=== PATIENT | male | born 1970 | race Caucasian/White ===

== ENCOUNTER 2023-05-05 14:43 | Inpatient (IN) | payer MEDICAID, SELFPAY ==
[2023-05-05] VITALS (7 sets, daily range): BP systolic 129–156; BP diastolic 73–108; PULSE 94–130; RESP 18–24; TEMP 36.6; O2SAT 95–100; BMI 25.1; BMI 32.6
--- NOTE | ~2023-05-05 | CT_ITS ---
EXAMINATION: CT head/brain wo IV con, CT cervical spine wo IV con INDICATION INFORMATION: Reason for Exam AMS COMPARISON: Altered mental status TECHNIQUE: Separate noncontrast CT examinations of the head and cervical spine were performed. Coronal and sagittal images were created for each examination at the technologist workstation. This CT examination was performed using dose optimization techniques as appropriate, variously including the following: *Automated exposure control *Adjustment of mA and/or kV according to patient size (this includes techniques or standardized protocols for targeted exams where dose is matched to indication/reason for exam; i.e. extremities or head) *Use of iterative reconstruction technique DLP: 736 mGy-cm (cervical spine), 783 mGy-cm (head) FINDINGS: Head: Mild left occipital scalp soft tissue swelling without subjacent calvarial fracture. The mastoid air cells and visualized portions of the paranasal sinuses are well aerated. There is no evidence of acute intracranial hemorrhage or territorial infarction. No abnormal mass effect or midline shift is seen. Mild asymmetric hypoattenuation of the left occipital cortex (series 19, image 93; series 14, image 16). Buenrostro to white matter differentiation is otherwise well preserved. No extra-axial fluid collections are identified. No hydrocephalus. No significant volume loss. Patchy periventricular and deep white matter hypoattenuation is consistent with mild small vessel ischemic changes. Cervical spine: There is no evidence of acute cervical spine fracture. Vertebral bodies remain normal in height. Alignment is maintained. Disc space heights are maintained. No pre- or paravertebral soft tissue abnormality is identified. Visualized portions of the lung apices are unremarkable. The thyroid gland is unremarkable. CT/CT cervical spine wo IV con IMPRESSION: 1. Mild asymmetric hypoattenuation of the left occipital cortex, which may be technical/artifactual or may represent an acute infarct. Correlate with focal neurologic signs/symptomatology and if clinically warranted, dedicated MRI brain may be obtained for further assessment. 2. Mild left occipital scalp soft tissue swelling, age-indeterminate. Otherwise, no acute traumatic abnormality of the brain or cervical spine.
--- NOTE | ~2023-05-05 | CT_ITS ---
EXAMINATION: CT CHEST, ABDOMEN AND PELVIS WITHOUT CONTRAST CLINICAL INFORMATION: Altered mental status. COMPARISON: None. TECHNIQUE: Multidetector volumetric imaging was performed from the base of the neck through the pubic symphysis. Sagittal and coronal reformatted images were obtained on the technologist workstation. This CT examination was performed using dose optimization techniques as appropriate, variously including the following: *Automated exposure control *Adjustment of mA and/or kV according to patient size (this includes techniques or standardized protocols for targeted exams where dose is matched to indication/reason for exam; i.e. extremities or head) *Use of iterative reconstruction technique DLP: 1208 mGy-cm. FINDINGS: Evaluation is limited as the patient was unable to follow breathing instructions. There is also beam hardening artifact seen extending through the abdomen and pelvis related to the patient's arms by his side. CT SCAN OF THE CHEST: LUNGS: Lungs bilaterally symmetrically hypoinflated. The CT acquisition appears to have been performed in expiration with diffuse areas of groundglass opacity and subpleural reticulation seen, most consistent with incomplete lung expansion and atelectasis. There is a tiny micronodule (less than 3 mm (in the anterolateral periphery of the right lung apex (series 29, image 129), appearing dense and possibly representing a tiny calcified granuloma. No suspicious focal lung nodule or mass. No effusion or pneumothorax. Central airways patent. LYMPHOVASCULAR STRUCTURES: Aortic and heart size normal. No pericardial effusion. No mediastinal, hilar or axillary adenopathy or free fluid collection. THYROID GLAND: Unremarkable to the extent included. CHEST: There is prominent density seen behind the nipples bilaterally, appearing symmetric and most consistent with prominent bilateral gynecomastia. BONES: T9 vertebral body hemangioma. Diffuse osteopenia. Mild kyphoscoliosis. No suspicious focal findings. CT SCAN OF THE ABDOMEN AND PELVIS: LIVER, GALLBLADDER, AND BILIARY TREE: The liver is normal in size, shape, and attenuation. No focal hepatic lesion on noncontrast imaging. No biliary ductal dilatation is present. The gallbladder is unremarkable with no evidence of radiopaque gallstones, gallbladder wall thickening, or obvious pericholecystic inflammatory changes. PANCREAS: Mild pancreatic parenchymal atrophy is seen. The pancreas is otherwise unremarkable on noncontrast imaging. SPLEEN, ADRENAL GLANDS: Unremarkable on noncontrast imaging. KIDNEYS AND URETERS: The kidneys are normal in size, shape, and attenuation. No hydronephrosis, hydroureter, or calculi seen. No perinephric stranding. There is a 1.9 cm thin-walled low-attenuation mass in the upper pole of the left kidney, consistent with a cyst, which warrants no additional imaging follow-up. BLADDER: Unremarkable. PELVIC VISCERA: Unremarkable. GASTROINTESTINAL TRACT: There is a small retrocardiac hiatal hernia. The small and large bowel are unremarkable. The appendix is unremarkable. ABDOMINAL WALL: There is likely a tiny fat-containing umbilical hernia. LYMPH NODES, VASCULAR: There are several small periportal lymph nodes seen, with the largest 1's measuring up to 1 cm in short axis. No significant retroperitoneal or pelvic adenopathy is seen. There are multiple enlarged bilateral inguinal lymph nodes, measuring up to 5 cm cm in the right inguinal region with a cortical thickness of 1.5 cm and 4.5 cm in the left groin with cortical thickness of up to 1 cm. OSSEOUS STRUCTURES: Mild facet arthropathy in the mid and lower lumbar spine.. CT/CT abdomen pelvis wo IV con IMPRESSION: Evaluation is limited as discussed above. CT scan of the chest: * Hypoinflated lungs with diffuse groundglass opacities and subpleural reticulation seen, most consistent with incomplete lung expansion and atelectasis. * No suspicious pulmonary nodule or mass. * Incidental finding of bilateral gynecomastia. CT scan of the abdomen and pelvis: * Bilateral enlarged inguinal lymph nodes with mildly thickened cortices but preservation of the normal fatty hilum, nonspecific. * Small periportal lymph nodes, nonspecific. * Upper pole left renal cyst, which warrants no additional imaging follow-up. * Small retrocardiac hiatal hernia. * Tiny fat-containing umbilical hernia.
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
--- NOTE | 2023-05-05 15:47 | ECG_ITS ---
Test Reason : FALL Blood Pressure : / mmHG Vent. Rate : 101 BPM Atrial Rate : 101 BPM P-R Int : 156 ms QRS Dur : 082 ms QT Int : 358 ms P-R-T Axes : 061 003 052 degrees QTc Int : 464 ms Sinus tachycardia Otherwise normal ECG No previous ECGs available Referred By: Generic ED Physician Electronically Signed By:Eliel Groves
[2023-05-05 16:13] LABS: Appearance Urine Clear; Color Urine Yellow; Glucose Urine UA Negative (Negative); Leukocyte Esterase Urine Negative (Negative); Nitrite Urine Negative (Negative); PH 6.5 (5.0-9.0); Specific Gravity - Urine 1.015 (1.005-1.025); Urine Blood Negative (Negative); Urine Ketones Negative (Negative); Urine Protein Negative (Neg-Trace)
[2023-05-05 16:17] LABS: Amphetamine Screen Urine Not Detected (Not Detect); Barbiturates, Urine Not Detected (Not Detect); Benzodiazepines Screen Urine Not Detected (Not Detect); Cannabinoid Screen Urine Not Detected (Not Detect); Cocaine Screen Urine Not Detected (Not Detect); Fentanyl, urine POSITIVE (Not Detect); Opiate Screen Urine Not Detected (Not Detect); Phencyclidine Screen Urine Not Detected (Not Detect)
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
[2023-05-05] MEDS: Haloperidol Lactate 5 MG/ML VIAL IM ×2 (17:10)
[2023-05-05] MEDS: Midazolam HCl/PF 2 MG/2 ML VIAL 4 MG IM (17:10)
[2023-05-05] MEDS: diphenhydrAMINE HCL 50 MG/ML VIAL IM (17:10)
[2023-05-05 17:20] LABS: Glucose, Whole Blood 126 mg/dL (60-115)
[2023-05-05 17:35] LABS: MANUAL DIFF FLAG NO
[2023-05-05 17:40] LABS: Basophils Percent Auto 0.2 % (0-2); Eosinophils Percent Auto 0.1 % (0-4); Hematocrit 36.1 % (42.0-52.0); Imm Gran Abs Auto 0.12 X10*3/uL (0.00-0.03); Lymphocytes Absolute Auto 1.5 X10*3/uL (1.2-4.9); Lymphocytes Percent Auto 12.6 % (20-40); Mean Corpuscular HGB Conc 33.2 g/dl (31.0-36.0); Mean Corpuscular Hemoglobin 28.2 pg (27.0-33.0); Mean Corpuscular Volume 84.9 fL (80.0-98.0); Mean Platelet Volume 8.8 fL (9.4-12.4); Monocytes Absolute Auto 0.5 X10*3/uL (0.1-1.2); Monocytes Percent Auto 3.7 % (2-11); Neutrophils Absolute Auto 10.1 x10*3/uL (2.0-8.3); Neutrophils Percent Auto 82.4 % (45-73); Platelet Count 288 X10*3/uL (160-400); Red Blood Count 4.25 X10*6/uL (4.60-5.80); Red Cell Distribution Width 13.9 % (11.0-16.0); White Blood Count 12.3 X10*3/uL (4.8-10.8)
[2023-05-05] MEDS: 0.9 % Sodium Chloride 1,000 ML 999 ML IV ×2 (17:45→19:08)
[2023-05-05 17:58] LABS: INTERNATIONAL NORM RATIO 1.1 (0.9-1.1); Prothrombin Time 13.3 SEC (11.1-13.3)
[2023-05-05 17:59] LABS: Alanine Aminotransferase 14 U/L (0-40); Albumin Level 4.2 g/dL (3.5-5.0); Alkaline Phosphatase 123 U/L (39-117); Aspartate Amino Transferase 25 U/L (5-37); Bilirubin Total 0.2 mg/dL (0.0-1.0); Blood Urea Nitrogen 11 mg/dL (9-16); Calcium 9.6 mg/dL (8.4-10.2); Creatinine Clr Calc Pharmacy 100.4; Estimated Glomerular Filt Rate > 60; Glucose Random 124 mg/dL (60-115); Total Protein 9.2 g/dL (6.5-8.0)
[2023-05-05 18:01] LABS: Acetaminophen LAB < 3 mcg/mL (<30); Salicylate < 5.0 mg/dL (15-30)
[2023-05-05 18:02] LABS: Anion Gap 28 (12-20); Carbon Dioxide 12 mmol/L (22-29); Chloride 100 mmol/L (96-108); Potassium 3.1 mmol/L (3.3-5.1); Sodium 137 mmol/L (135-145)
[2023-05-05 18:05] LABS: Ethanol < 10 mg/dL; Lipase 8 U/L (8-78); Magnesium 1.9 mg/dL (1.6-2.6)
[2023-05-05 18:07] LABS: Troponin-I High Sensitivity 4.1 ng/L (<3.5-35.0)
[2023-05-05] MEDS: Potassium Chloride/H20 10 MEQ/100 ML PIGGYBACK 100 MEQ IV ×2 (18:27→20:39)
[2023-05-05] MEDS: levETIRAcetam in NaCl (iso-os) 1,500 MG/100 ML PIGGYBACK 400 MG IV (18:33)
[2023-05-05 18:34] LABS: Beta-Hydroxybutyrate 0.12 mmol/L (0.02-0.27)
[2023-05-05 18:35] LABS: Venous Blood Gas Refer to POC result
[2023-05-05 18:35] LABS: VBG Base Excess -1.7 mmol/L; VBG HCO3 20 mmol/L (22-26); VBG pCO2 28 mmHg; VBG pH 7.46 (7.32-7.43); VBG pO2 84 mmHg
[2023-05-05 18:47] LABS: Lactic Acid 4.9 mmol/L (0.5-2.0)
[2023-05-05 19:09] LABS: Influenza A PCR NEGATIVE (Negative); Influenza B PCR NEGATIVE (Negative); Resp Syncy Virus RNA Qual PCR NEGATIVE (Negative); SARS COV2 PCR INHOUSE NEGATIVE (Negative)
[2023-05-05 20:28] LABS: Reflex Lactate? Lactic Acid Added
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
--- NOTE | 2023-05-05 20:41 | PC.NURSE ---
belongings secured by security in Dec
[2023-05-05] MEDS: 0.9 % Sodium Chloride 1,000 ML 150 ML IVCONT (22:49)
[2023-05-05] MEDS: diazePAM 10 MG/2 ML CARTRIDGE 5 MG IVPUSH (23:51)
[2023-05-06] VITALS (7 sets, daily range): BP systolic 146–184; BP diastolic 89–108; PULSE 76–103; RESP 18–20; TEMP 36.1–36.7; O2SAT 93–97
[2023-05-06] MEDS: cloNIDine HCL 0.1 MG TABLET PO ×3 (00:57→20:22)
[2023-05-06] MEDS: diazePAM 10 MG/2 ML CARTRIDGE 5 MG IVPUSH (01:56)
[2023-05-06] MEDS: diazePAM 10 MG/2 ML CARTRIDGE 5 MG IM (05:23)
--- NOTE | 2023-05-06 08:00 | PC.NURSE ---
At this time, patient refusing all imaging including, MRI and EEG. In addition refusing for this RN to get peripheral IV access.
--- NOTE | 2023-05-06 08:00 | PC.NURSE ---
At this time patient
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
[2023-05-06] MEDS: methADONE HCl 20 MG/2 ML ORAL.CONC 65 MG PO (08:35)
[2023-05-06] MEDS: Ondansetron ODT 4 MG TAB.RAPDIS TRANSLINGU ×2 (08:48→20:21)
[2023-05-06] MEDS: hydrOXYzine HCL 50 MG TABLET PO ×3 (08:48→20:22)
--- NOTE | 2023-05-06 09:04 | PC.NURSE ---
Per patient request, contacted [facility] in [place], [place] ([facility]) to confirm he is in the hospital so they will hold his bed there. No answer at this time, left a voicemail.
--- NOTE | 2023-05-06 09:41 | PHA.MEDREC ---
Pharmacy Consult ? Medication Reconciliation Pharmacy has completed the medication reconciliation through pharmacy claims and provider's office, tried to talk with patient, refused to speak. Pharmacy said he only recently filled gabapentin and keppra. Called provider's office and she confirmed med list with latest visit as reflected, nurse mentioned pt requested to be taken off suboxone, so not included on med list.
--- NOTE | 2023-05-06 10:50 | PM.NEUROCN ---
History of Present Illness Data of Consult Service Date: 05/06/23 Primary Care Provider: Unknown Physician HPI Reason for consult: Seizure disorder 52-year-old male with a PMH significant for?seizure disorder, polysubstance use disorder, IVDU, and alcohol use disorder who presents to the ED for evaluation of possible altered mental status. While in emergency room he had a generalized tonic-clonic seizure treated with lorazepam and then Keppra. When I saw him he was quite drowsy and somewhat uncooperative to examination. Review of Systems Review of Systems: Could not be done with him [facility] Past Medical History Medical History (Updated 05/05/23 @ 22:52 by ISAIAS Magaña) Alcohol use disorder Opioid use disorder Seizure disorder Social History Social History Household Members: Unknown / Unable to assess Housing: Unknown / Unable to assess Patient Tobacco Use Status: Tobacco use Unknown Currently Displaying Signs/Symptoms of Drug Intoxication Withdrawal: No Advance Directives: No Advance Directives Information Provided: No Recently lost weight without trying: Unsure Nutrition Risks: No Nutritional Risk Meds Allergies Allergy/AdvReac Type Severity Reaction Status Date / Time banana [BANANA] Allergy Unknown VOMITING/HI Verified 05/05/23 18:01 VES tomato [TOMATO] Allergy Unknown HIVES, Verified 05/05/23 18:01 SWOLLEN THROAT Active Medications: Current Medications Clonidine HCl (Clonidine Hcl 0.1 Mg Tablet) 0.1 mg PO TID PRN; Protocol PRN Reason: Opiate Withdrawal Last Admin: 05/06/23 08:48 Dose: 0.1 mg Sodium Chloride (Ns) 1,000 mls @ 150 mls/hr IVCONT .Q6H40M [facility] Last Admin: 05/06/23 08:50 Dose: Not Given Methadone HCl (Methadone Hcl 20 Mg/2 Ml Oral.Conc) 65 mg PO DAILY [facility] Last Admin: 05/06/23 08:35 Dose: 65 mg Ondansetron HCl (Ondansetron Odt 4 Mg Tab.Rapdis) 4 mg TRANSLINGU Q6H PRN PRN Reason: Nausea and Vomiting Last Admin: 05/06/23 08:48 Dose: 4 mg Sodium Chloride (0.9 % Sodium Chloride Flush 3 Ml Syringe) 3 ml IVFLUSH QSHIFT [facility] Last Admin: 05/06/23 08:50 Dose: Not Given Home Medications Medication Instructions Recorded Confirmed Last Taken Type gabapentin 300 mg capsule 300 mg PO BID 05/06/23 05/06/23 Unknown History levetiracetam 500 mg tablet 1,000 mg PO BID 05/06/23 05/06/23 Unknown History olanzapine 5 mg tablet 5 mg PO BEDTIME 05/06/23 05/06/23 Unknown History Physical Exam Vital Signs: Vital Signs: Last Vital Signs Temp 97.9 F 05/06/23 07:47 Pulse 76 05/06/23 07:47 Resp 20 05/06/23 07:47 BP 174/89 H 05/06/23 07:47 Pulse Ox 97 05/06/23 07:47 O2 Del Method Room Air 05/06/23 07:47 O2 Flow Rate 2 05/06/23 00:00 BMI result Body Mass Index 32.6 Neuro: Other: Quite drowsy. Open his eyes made eye contact and answered couple of simple questions but was not cooperative to examination. Face seems symmetrical. Visual early were difficult to determine. There was no gaze deviation. He was living in his right side was arms and legs curled up and was resistant to exam. Plantars were flexor. Results Labs 05/05/23 17:30 05/05/23 17:30 Labs: Short CBC 05/05/23 Range/Units 17:30 WBC 12.3 H (4.8-10.8) X10*3/uL Hgb 12.0 L (14.0-18.0) g/dl Hct 36.1 L (42.0-52.0) % Plt Count 288 (160-400) X10*3/uL BMP 05/05/23 17:30 Sodium 137 Potassium 3.1 L Chloride 100 Carbon Dioxide 12 L BUN 11 Creatinine 0.88 Calcium 9.6 Cardiac Enzymes 05/05/23 Range/Units 17:35 Total Creatine Kinase 340 H (38-174) U/L Liver Function 05/05/23 Range/Units 17:30 Total Bilirubin 0.2 (0.0-1.0) mg/dL AST 25 (5-37) U/L ALT 14 (0-40) U/L Alkaline Phosphatase 123 H (39-117) U/L Albumin 4.2 (3.5-5.0) g/dL Urine 05/05/23 Range/Units 16:05 Urine Color Yellow Urine Appearance Clear Urine pH 6.5 (5.0-9.0) Ur Specific [place] 1.015 (1.005-1.025) Urine Protein Negative (Neg-Trace) mg/dL Urine Glucose (UA) Negative (Negative) mg/dL Noncontrast head CT revealed a left occipital and pontine hypodensities. Assessment and Plan (1) Seizure: Status: Acute 52 years old man with alcohol and drug use presented in altered mental status and had a generalized convulsion. At this time he was encephalopathic, which could be postictal but could be multifactorial. He was afebrile. Head CT revealed pontine and left occipital hypodensity. I recommend continuing levetiracetam and obtaining an MRI of brain with and without contrast for better definition. Procedures Date of Service Date of Service: 05/06/23
--- NOTE | 2023-05-06 12:40 | HO.WOUND ---
Addendum entered by Desiree Fair RN 05/06/23 17:01: @1701 Second attempt to see patient - arrival to patient room he is off the unit. Will attempt assessment at future date and time. Original Note: Wound Consult: Initial 52yr old?[place] [facility] [place] 20[place] - See progress notes and H&P for detailed history.? Wound consult placed for Multiple areas of injury in various stages of healing. Arrival to bedside patient refused assessment - agreed to return later in the day for attempt at assessment.
[2023-05-06 12:47] LABS: Hematocrit 33.8 % (42.0-52.0); Hemoglobin 11.7 g/dl (14.0-18.0); Mean Corpuscular HGB Conc 34.6 g/dl (31.0-36.0); Mean Corpuscular Hemoglobin 28.3 pg (27.0-33.0); Mean Corpuscular Volume 81.8 fL (80.0-98.0); Mean Platelet Volume 9.1 fL (9.4-12.4); Platelet Count 276 X10*3/uL (160-400); Red Blood Count 4.13 X10*6/uL (4.60-5.80); Red Cell Distribution Width 14.1 % (11.0-16.0)
--- NOTE | 2023-05-06 12:51 | MHC.CM.PN ---
CM attempted to see pt. twice, he was asleep and then very agitated. His nurse told me that he has been agitated and overwhelmed with providers today. CM will approach tomorrow. DC plan is [facility] in [place], [place] to call to notify that pt is here and plans to return there, per pts request.
--- NOTE | 2023-05-06 12:59 | MHC.SL.SWA ---
Speech Pathologist Impression: Risk of Aspiration Due to: Neurological Condition Dysphasia Diet Status: Mild oral phase dysphagia secondary to scattered dentition and mouth soreness. Recommend start on Ground Mechanical (NDD2) with THIN liquids, pills whole with liquid. Liquid Consistency and Strategies for Safe Swallow: Liquid Intake Recommendation: Thin Liquid Intake Strategies: Small Sips Solid Food Consistency: Dietary Recommendations: Grnd/Mech Altered (NDD2) Additional Modifications to Solid Foods: Patient with c/o sore mouth/gums, had difficulty chewing adequately and comfortably. Patient is able to feed self independently. Patient with c/o pain when bed in full upright position, can be positioned with head of bed at 70 degrees, which was more comfortable for him. Add sauces and gravies. Oral Medication Intake: Whole with Liquid Please contact the pharmacy regarding appropriate crushable or liquid drug formulations that are available whenever modified delivery is recommended. Compensatory Strategies and Precautions to be Taken for Safe Swallow: Sitting Upright (90 deg) Liquids from Cup Liquids from Straw Small Bites and Sips Alternate Liquids/Solids Supervision While Eating and Drinking for Safe Swallow: None Needed Foods to Avoid: Difficult to chew solids, dry, crispy, crunch foods. Swallowing Recommended Treatments: Compens. Strategy Educat. Recommendation for Speech: Inpatient Speech Therapy Comment: Patient presented today with difficulty chewing due to scattered/reduced dentition, sore mouth and gums, c/o sore throat when swallowing. Swallow otherwise WFL. Patient is currently NPO, recommend START diet of Ground/Mechanical Altered (NDD2) with Thin Liquids, Pills whole with liquid. Patient on ground diet due to oral discomfort, will likely be able to advance as symptoms/soreness resolve, and/or may prefer and tolerate more advance textures. ORE DIGGER to f/u 1-2 X for toleration, advancement of diet if warranted. JOYCE CRAWFORD notified of recommendations by secure text, RN in person. Frequency/Duration: Date Range for Service Req: Timeline to reassess: Cassandra Consultant Clinican/Clinical Fellow: No Supervisory Statement: I have reviewed and agree with the student/clinical fellow's documentation: N/A Speech Language Pathologist: Keyla Walters M.A., [facility]
--- NOTE | 2023-05-06 13:00 | MHC.CM.PN ---
CM contacted [facility], pt. was staying at [facility], he will be able to return there as long as he brings paperwork from hospital about his stay here.
[2023-05-06 13:11] LABS: Alanine Aminotransferase 16 U/L (0-40); Albumin Level 4.1 g/dL (3.5-5.0); Alkaline Phosphatase 119 U/L (39-117); Anion Gap 15 (12-20); Aspartate Amino Transferase 65 U/L (5-37); Bilirubin Total 0.4 mg/dL (0.0-1.0); Blood Urea Nitrogen 5 mg/dL (9-16); Calcium 9.3 mg/dL (8.4-10.2); Carbon Dioxide 24 mmol/L (22-29); Chloride 101 mmol/L (96-108); Creatinine Clr Calc Pharmacy 149.3; Estimated Glomerular Filt Rate > 60; Glucose Random 103 mg/dL (60-115); Potassium 3.4 mmol/L (3.3-5.1); Sodium 137 mmol/L (135-145)
--- NOTE | 2023-05-06 13:20 | P.PNIM_ITS ---
Subjective Subjective Date of Service: 05/06/23 Interval History: seizure ,postictal Review of Systems mental status somewhat improving refuses iv intermitently no fever Physical Exam 2 Vital Signs: Vital Signs: Last Vital Signs Temp 98.1 F 05/06/23 11:02 Pulse 77 05/06/23 11:02 Resp 18 05/06/23 11:02 BP 167/92 H 05/06/23 11:02 Pulse Ox 93 05/06/23 11:02 O2 Del Method Room Air 05/06/23 11:02 O2 Flow Rate 2 05/06/23 00:00 BMI result Body Mass Index 32.6 anxious,intermittent agitated ,limited exam. Appearance: Alert.? Oriented X1-2 ,anxious .? cvs: rrr, [id number]. res: clear to auscultation ,no rhonchii or wheezing abd: no rebound or guarding ,nt, bs present. ext pulses present , no cyanosis . neuro: moves all ext Objective Data Active Medications Clonidine HCl (Clonidine Hcl 0.1 Mg Tablet) 0.1 mg PO TID PRN; Protocol PRN Reason: Opiate Withdrawal Last Admin: 05/06/23 08:48 Dose: 0.1 mg Documented By: SUZI Hydroxyzine HCl (Hydroxyzine Hcl 50 Mg Tablet) 50 mg PO Q6H PRN PRN Reason: anxiety Sodium Chloride (Ns) 1,000 mls @ 150 mls/hr IVCONT .Q6H40M [facility] Last Admin: 05/06/23 08:50 Dose: Not Given Documented By: SUZI Non-Admin Reason: No Access Levetiracetam (Levetiracetam 1,000 Mg Tablet) 1,000 mg PO BID [facility] Methadone HCl (Methadone Hcl 20 Mg/2 Ml Oral.Conc) 65 mg PO DAILY [facility] Last Admin: 05/06/23 08:35 Dose: 65 mg Documented By: SUZI Ondansetron HCl (Ondansetron Odt 4 Mg Tab.Rapdis) 4 mg TRANSLINGU Q6H PRN PRN Reason: Nausea and Vomiting Last Admin: 05/06/23 08:48 Dose: 4 mg Documented By: SUZI Sodium Chloride (0.9 % Sodium Chloride Flush 3 Ml Syringe) 3 ml IVFLUSH QSHIFT [facility] Last Admin: 05/06/23 08:50 Dose: Not Given Documented By: SUZI Non-Admin Reason: No Access Labs 05/06/23 12:00 05/06/23 12:00 Labs: Laboratory Results - last 24 hr 05/05/23 05/05/23 05/05/23 16:05 17:16 17:30 MCV 84.9 MCH 28.2 MCHC 33.2 RDW 13.9 Plt Count 288 MPV 8.8 L Immature Gran % (Auto) 1.0 H Neut % (Auto) 82.4 H Lymph % (Auto) 12.6 L [place] % (Auto) 3.7 Eos % (Auto) 0.1 Baso % (Auto) 0.2 Lymph # (Auto) 1.5 [place] # (Auto) 0.5 Eos # (Auto) 0.0 Baso # (Auto) 0.0 Abs Immat Gran (auto) 0.12 H Absolute Neuts (auto) 10.1 H Absolute Nucleated RBC 0.000 Nucleated RBC % (auto) 0.0 PT INR VBG pH VBG pCO2 VBG pO2 VBG HCO3 VBG O2 Saturation VBG Base Excess Anion Gap 28 H Estim Creat Clear Calc 100.4 Estimated GFR > 60 POC Glucose 126 H Random Glucose 124 H Lactic Acid Calcium 9.6 Magnesium Total Bilirubin 0.2 AST 25 ALT 14 Alkaline Phosphatase 123 H Total Creatine Kinase Total Protein 9.2 H Albumin 4.2 Lipase Beta-Hydroxybutyrate 0.12 Urine Color Yellow Urine Appearance Clear Urine pH 6.5 Ur Specific [place] 1.015 Urine Protein Negative Urine Glucose (UA) Negative Urine Ketones Negative Urine Blood Negative Urine Nitrite Negative Ur Leukocyte Esterase Negative Salicylates Urine Opiates Screen Not Detected Urine Fentanyl Screen POSITIVE H Acetaminophen Ur Barbiturates Screen Not Detected Ur Phencyclidine Scrn Not Detected Ur Amphetamines Screen Not Detected U Benzodiazepines Scrn Not Detected Urine Cocaine Screen Not Detected U Marijuana (THC) Screen Not Detected Ethyl Alcohol Influenza Type A (PCR) Influenza Type B (PCR) RSV RNA Qual (PCR) SARS-CoV-2 RNA (RT-PCR) 05/05/23 05/05/23 05/05/23 17:35 18:24 18:28 MCV MCH MCHC RDW Plt Count MPV Immature Gran % (Auto) Neut % (Auto) Lymph % (Auto) [place] % (Auto) Eos % (Auto) Baso % (Auto) Lymph # (Auto) [place] # (Auto) Eos # (Auto) Baso # (Auto) Abs Immat Gran (auto) Absolute Neuts (auto) Absolute Nucleated RBC Nucleated RBC % (auto) PT 13.3 INR 1.1 VBG pH 7.46 H VBG pCO2 28 VBG pO2 84 VBG HCO3 20 L VBG O2 Saturation 97.0 VBG Base Excess -1.7 Anion Gap Estim Creat Clear Calc Estimated GFR POC Glucose Random Glucose Lactic Acid 4.9 H* Calcium Magnesium 1.9 Total Bilirubin AST ALT Alkaline Phosphatase Total Creatine Kinase 340 H Total Protein Albumin Lipase 8 Beta-Hydroxybutyrate Urine Color Urine Appearance Urine pH Ur Specific [place] Urine Protein Urine Glucose (UA) Urine Ketones Urine Blood Urine Nitrite Ur Leukocyte Esterase Salicylates < 5.0 L Urine Opiates Screen Urine Fentanyl Screen Acetaminophen < 3 Ur Barbiturates Screen Ur Phencyclidine Scrn Ur Amphetamines Screen U Benzodiazepines Scrn Urine Cocaine Screen U Marijuana (THC) Screen Ethyl Alcohol < 10 Influenza Type A (PCR) NEGATIVE Influenza Type B (PCR) NEGATIVE RSV RNA Qual (PCR) NEGATIVE SARS-CoV-2 RNA (RT-PCR) NEGATIVE 05/06/23 12:00 MCV 81.8 MCH 28.3 MCHC 34.6 RDW 14.1 Plt Count 276 MPV 9.1 L Immature Gran % (Auto) Neut % (Auto) Lymph % (Auto) [place] % (Auto) Eos % (Auto) Baso % (Auto) Lymph # (Auto) [place] # (Auto) Eos # (Auto) Baso # (Auto) Abs Immat Gran (auto) Absolute Neuts (auto) Absolute Nucleated RBC 0.000 Nucleated RBC % (auto) 0.0 PT INR VBG pH VBG pCO2 VBG pO2 VBG HCO3 VBG O2 Saturation VBG Base Excess Anion Gap 15 Estim Creat Clear Calc 149.3 Estimated GFR > 60 POC Glucose Random Glucose 103 Lactic Acid Calcium 9.3 Magnesium Total Bilirubin 0.4 AST 65 H ALT 16 Alkaline Phosphatase 119 H Total Creatine Kinase Total Protein 9.0 H Albumin 4.1 Lipase Beta-Hydroxybutyrate Urine Color Urine Appearance Urine pH Ur Specific [place] Urine Protein Urine Glucose (UA) Urine Ketones Urine Blood Urine Nitrite Ur Leukocyte Esterase Salicylates Urine Opiates Screen Urine Fentanyl Screen Acetaminophen Ur Barbiturates Screen Ur Phencyclidine Scrn Ur Amphetamines Screen U Benzodiazepines Scrn Urine Cocaine Screen U Marijuana (THC) Screen Ethyl Alcohol Influenza Type A (PCR) Influenza Type B (PCR) RSV RNA Qual (PCR) SARS-CoV-2 RNA (RT-PCR) Assessment and Plan (1) Altered mental status: Status: Acute (2) Abnormal CT scan of head: Status: Acute Plan 52-year-old male with a PMH significant for?seizure disorder, polysubstance use disorder, IVDU, and alcohol use disorder who presents to the ED for evaluation of possible altered mental status. Pt will be admitted to the hospital for treatment and further evaluation of altered mental status of unclear etiology. Acute metabolic encephalopathy Unclear etiology: substance use vs stroke vs postictal CT of head with mild asymmetric hypoattenuation of the left occipital cortex which may be technical/artifactual or may represent acute infarct Tox screen positive for fentanyl, patient with long history of IVDU and opioid use disorder Will get MRI of brain/EEG Neurology consult,Monitor on telemetry Seizure disorder Patient had witnessed seizure activity of 2 minutes in ED, received -IM Ativan and loaded with Keppra on Keppra 1500 mg b.i.d( as per h&P). Seizure precautions,Monitor on telemetry mri/eeg neurology eval pending patient is uncooperative ,agiattion intermitetnt- refuses iv and labs draws : psych eval added. acute Lactic acidosis: thought to sec to seizures. Patient given IVF in the ED. Hypokalemia repleted and resolved. Elevated creatinine kinase CPK 340 at time of presentation Received IVF in ED Will place on maintenance fluids Polysubstance use disorder Addiction medicine consult Full Code DVT Prophylaxis: Lovenox ongoing need for hospitlisation for treatment and further evaluation of altered mental status. Given pt's altered mental status in the setting of agitation, uncooperativeness, and postictal state, patient will require hospitalization for further treatment and workup including MRI and close monitoring of labs and vitals. Quality Stroke Does the patient have a stroke diagnosis?: No VTE Prior VTE?: No VTE Risk Level:: Medical - moderate - high VTE Device Contraindication: Treatment Not Tolerated VTE Drug Contraindication: N/A - Med Ordered
--- NOTE | 2023-05-06 14:11 | PC.NURSE ---
Attempted to get IV access x1 with patient's permission- failed. Marina Perez RN from IR will come and attempt to place line.
--- NOTE | 2023-05-06 14:50 | P.CNPS_ITS ---
History of Present Illness Date of Service: t Chief Complaint: Seizures Requesting physician: Sherwin Singh Discussed with referring provider: Yes Sources of Information: patient interviewed, chart reviewed and crisis/core team assessment reviewed HPI Narrative: The patient is a 52-year-old male admitted to the hospital for seizures. The patient carries a diagnosis of opiate use disorder, alcohol use disorder, seizure disorder an acute change in mental status. He had been treated with Keppra another anticonvulsive since he presented with seizures and he had been postictal. The present consult was placed since the patient was agitated, demanding to be discharged, reasonable unable to take informed decisions or safety awareness. He was medicated parenteral. At the moment of the interview, the patient was sedated unable to participate 100% on the interview. The case was discussed with the regular team and at this moment the patient is sedated, he does not have capacity take informed decisions at this moment since he is postictal and agitated. Past Psychiatric History: Unclear, apparently he has a past history of substance abuse Medical Evaluation Reviewed: Yes [facility] Medical History Alcohol use disorder Opioid use disorder Seizure disorder Family History: Unknown Social History: Unknown Substance History: History of polysubstance dependence Trauma History: In Diagnostics Vital Signs (24Hr): Vital Signs - 24 hr 05/05/23 15:00 05/05/23 16:04 05/05/23 17:10 Temperature 97.8 F Pulse Rate 130 H 104 H Respiratory Rate 24 H 18 22 H Blood Pressure 137/108 H 146/98 H Pulse Oximetry 98 96 95 Oxygen Delivery Method Room Air Nasal Cannula Oxygen Flow Rate 4 05/05/23 17:25 05/05/23 17:40 05/05/23 17:55 Temperature Pulse Rate 102 H 97 Respiratory Rate 20 18 18 Blood Pressure 134/94 H 129/73 Pulse Oximetry 97 97 99 Oxygen Delivery Method Nasal Cannula Nasal Cannula Nasal Cannula Oxygen Flow Rate 4 4 4 05/05/23 18:10 05/06/23 00:00 05/06/23 03:22 Temperature 97.5 F 96.9 F Pulse Rate 94 80 79 Respiratory Rate 18 20 20 Blood Pressure 136/93 H 184/96 H 146/102 H Pulse Oximetry 100 96 97 Oxygen Delivery Method Nasal Cannula Nasal Cannula Room Air Oxygen Flow Rate 4 2 05/06/23 07:47 02/12/24 11:02 Temperature 97.9 F 98.1 F Pulse Rate 76 77 Respiratory Rate 20 18 Blood Pressure 174/89 H 167/92 H Pulse Oximetry 97 93 Oxygen Delivery Method Room Air Room Air Oxygen Flow Rate BMI result Body Mass Index 32.6 Labs 05/06/23 12:00 05/06/23 12:00 Labs: Laboratory Results - last 48 hr 05/05/23 05/05/23 05/05/23 16:05 17:16 17:30 WBC 12.3 H RBC 4.25 L Hgb 12.0 L Hct 36.1 L MCV 84.9 MCH 28.2 MCHC 33.2 RDW 13.9 Plt Count 288 MPV 8.8 L Immature Gran % (Auto) 1.0 H Neut % (Auto) 82.4 H Lymph % (Auto) 12.6 L [place] % (Auto) 3.7 Eos % (Auto) 0.1 Baso % (Auto) 0.2 Lymph # (Auto) 1.5 [place] # (Auto) 0.5 Eos # (Auto) 0.0 Baso # (Auto) 0.0 Abs Immat Gran (auto) 0.12 H Absolute Neuts (auto) 10.1 H Absolute Nucleated RBC 0.000 Nucleated RBC % (auto) 0.0 PT INR VBG pH VBG pCO2 VBG pO2 VBG HCO3 VBG O2 Saturation VBG Base Excess Sodium 137 Potassium 3.1 L Chloride 100 Carbon Dioxide 12 L Anion Gap 28 H BUN 11 Creatinine 0.88 Estim Creat Clear Calc 100.4 Estimated GFR > 60 POC Glucose 126 H Random Glucose 124 H Lactic Acid Calcium 9.6 Magnesium Total Bilirubin 0.2 AST 25 ALT 14 Alkaline Phosphatase 123 H Total Creatine Kinase Troponin I High Sens Total Protein 9.2 H Albumin 4.2 Lipase Beta-Hydroxybutyrate 0.12 Urine Color Yellow Urine Appearance Clear Urine pH 6.5 Ur Specific [place] 1.015 Urine Protein Negative Urine Glucose (UA) Negative Urine Ketones Negative Urine Blood Negative Urine Nitrite Negative Ur Leukocyte Esterase Negative Salicylates Urine Opiates Screen Not Detected Urine Fentanyl Screen POSITIVE H Acetaminophen Ur Barbiturates Screen Not Detected Ur Phencyclidine Scrn Not Detected Ur Amphetamines Screen Not Detected U Benzodiazepines Scrn Not Detected Urine Cocaine Screen Not Detected U Marijuana (THC) Screen Not Detected Ethyl Alcohol Influenza Type A (PCR) Influenza Type B (PCR) RSV RNA Qual (PCR) SARS-CoV-2 RNA (RT-PCR) 05/05/23 05/05/23 05/05/23 17:35 18:24 18:28 WBC RBC Hgb Hct MCV MCH MCHC RDW Plt Count MPV Immature Gran % (Auto) Neut % (Auto) Lymph % (Auto) [place] % (Auto) Eos % (Auto) Baso % (Auto) Lymph # (Auto) [place] # (Auto) Eos # (Auto) Baso # (Auto) Abs Immat Gran (auto) Absolute Neuts (auto) Absolute Nucleated RBC Nucleated RBC % (auto) PT 13.3 INR 1.1 VBG pH 7.46 H VBG pCO2 28 VBG pO2 84 VBG HCO3 20 L VBG O2 Saturation 97.0 VBG Base Excess -1.7 Sodium Potassium Chloride Carbon Dioxide Anion Gap BUN Creatinine Estim Creat Clear Calc Estimated GFR POC Glucose Random Glucose Lactic Acid 4.9 H* Calcium Magnesium 1.9 Total Bilirubin AST ALT Alkaline Phosphatase Total Creatine Kinase 340 H Troponin I High Sens 4.1 Total Protein Albumin Lipase 8 Beta-Hydroxybutyrate Urine Color Urine Appearance Urine pH Ur Specific [place] Urine Protein Urine Glucose (UA) Urine Ketones Urine Blood Urine Nitrite Ur Leukocyte Esterase Salicylates < 5.0 L Urine Opiates Screen Urine Fentanyl Screen Acetaminophen < 3 Ur Barbiturates Screen Ur Phencyclidine Scrn Ur Amphetamines Screen U Benzodiazepines Scrn Urine Cocaine Screen U Marijuana (THC) Screen Ethyl Alcohol < 10 Influenza Type A (PCR) NEGATIVE Influenza Type B (PCR) NEGATIVE RSV RNA Qual (PCR) NEGATIVE SARS-CoV-2 RNA (RT-PCR) NEGATIVE 05/06/23 12:00 WBC 9.0 RBC 4.13 L Hgb 11.7 L Hct 33.8 L MCV 81.8 MCH 28.3 MCHC 34.6 RDW 14.1 Plt Count 276 MPV 9.1 L Immature Gran % (Auto) Neut % (Auto) Lymph % (Auto) [place] % (Auto) Eos % (Auto) Baso % (Auto) Lymph # (Auto) [place] # (Auto) Eos # (Auto) Baso # (Auto) Abs Immat Gran (auto) Absolute Neuts (auto) Absolute Nucleated RBC 0.000 Nucleated RBC % (auto) 0.0 PT INR VBG pH VBG pCO2 VBG pO2 VBG HCO3 VBG O2 Saturation VBG Base Excess Sodium 137 Potassium 3.4 Chloride 101 Carbon Dioxide 24 Anion Gap 15 BUN 5 L Creatinine 0.69 Estim Creat Clear Calc 149.3 Estimated GFR > 60 POC Glucose Random Glucose 103 Lactic Acid Calcium 9.3 Magnesium Total Bilirubin 0.4 AST 65 H ALT 16 Alkaline Phosphatase 119 H Total Creatine Kinase 3990 H Troponin I High Sens Total Protein 9.0 H Albumin 4.1 Lipase Beta-Hydroxybutyrate Urine Color Urine Appearance Urine pH Ur Specific [place] Urine Protein Urine Glucose (UA) Urine Ketones Urine Blood Urine Nitrite Ur Leukocyte Esterase Salicylates Urine Opiates Screen Urine Fentanyl Screen Acetaminophen Ur Barbiturates Screen Ur Phencyclidine Scrn Ur Amphetamines Screen U Benzodiazepines Scrn Urine Cocaine Screen U Marijuana (THC) Screen Ethyl Alcohol Influenza Type A (PCR) Influenza Type B (PCR) RSV RNA Qual (PCR) SARS-CoV-2 RNA (RT-PCR) Imaging Radiology Impressions: ITS Impressions Abdomen/Pelvis CT 05/05/23 17:56 IMPRESSION: Evaluation is limited as discussed above. CT scan of the chest: * Hypoinflated lungs with diffuse groundglass opacities and subpleural reticulation seen, most consistent with incomplete lung expansion and atelectasis. * No suspicious pulmonary nodule or mass. * Incidental finding of bilateral gynecomastia. CT scan of the abdomen and pelvis: * Bilateral enlarged inguinal lymph nodes with mildly thickened cortices but preservation of the normal fatty hilum, nonspecific. * Small periportal lymph nodes, nonspecific. * Upper pole left renal cyst, which warrants no additional imaging follow-up. * Small retrocardiac hiatal hernia. * Tiny fat-containing umbilical hernia. Cervical Spine CT 05/05/23 17:56 IMPRESSION: 1. Mild asymmetric hypoattenuation of the left occipital cortex, which may be technical/artifactual or may represent an acute infarct. Correlate with focal neurologic signs/symptomatology and if clinically warranted, dedicated MRI brain may be obtained for further assessment. 2. Mild left occipital scalp soft tissue swelling, age-indeterminate. Otherwise, no acute traumatic abnormality of the brain or cervical spine. Chest CT 05/05/23 17:56 IMPRESSION: Evaluation is limited as discussed above. CT scan of the chest: * Hypoinflated lungs with diffuse groundglass opacities and subpleural reticulation seen, most consistent with incomplete lung expansion and atelectasis. * No suspicious pulmonary nodule or mass. * Incidental finding of bilateral gynecomastia. CT scan of the abdomen and pelvis: * Bilateral enlarged inguinal lymph nodes with mildly thickened cortices but preservation of the normal fatty hilum, nonspecific. * Small periportal lymph nodes, nonspecific. * Upper pole left renal cyst, which warrants no additional imaging follow-up. * Small retrocardiac hiatal hernia. * Tiny fat-containing umbilical hernia. Head CT 05/05/23 17:56 IMPRESSION: 1. Mild asymmetric hypoattenuation of the left occipital cortex, which may be technical/artifactual or may represent an acute infarct. Correlate with focal neurologic signs/symptomatology and if clinically warranted, dedicated MRI brain may be obtained for further assessment. 2. Mild left occipital scalp soft tissue swelling, age-indeterminate. Otherwise, no acute traumatic abnormality of the brain or cervical spine. Mental Status Exam Mental Status Exam Patient Appearance: Appropriate (On hospital gowns, with IV line on his right arm.) Patient Orientation: Person Level of Consciousness: Sedated and Disoriented Patient Behavior: Asleep Mood Description: Blunted Affect Description: Blunted Ability to Follow Directions: Fair Speech Pattern: No Speech Hallucinations: None Delusions: Not Present Thought Process: Illogical and Confusion Thought Content: positive for Poverty of Content and positive for Thought Blocking Judgement: Poor Medications Medications Current Medications Clonidine HCl (Clonidine Hcl 0.1 Mg Tablet) 0.1 mg PO TID PRN; Protocol PRN Reason: Opiate Withdrawal Last Admin: 05/06/23 08:48 Dose: 0.1 mg Hydroxyzine HCl (Hydroxyzine Hcl 50 Mg Tablet) 50 mg PO Q6H PRN PRN Reason: anxiety Last Admin: 05/06/23 13:43 Dose: 50 mg Sodium Chloride (Ns) 1,000 mls @ 150 mls/hr IVCONT .Q6H40M TANISHA Last Admin: 05/06/23 08:50 Dose: Not Given Levetiracetam (Levetiracetam 500 Mg Tablet) 1,500 mg PO BID [facility] Methadone HCl (Methadone Hcl 20 Mg/2 Ml Oral.Conc) 65 mg PO DAILY TANISHA Last Admin: 05/06/23 08:35 Dose: 65 mg Ondansetron HCl (Ondansetron Odt 4 Mg Tab.Rapdis) 4 mg TRANSLINGU Q6H PRN PRN Reason: Nausea and Vomiting Last Admin: 05/06/23 08:48 Dose: 4 mg Sodium Chloride (0.9 % Sodium Chloride Flush 3 Ml Syringe) 3 ml IVFLUSH QSHIFT TANISHA Last Admin: 05/06/23 08:50 Dose: Not Given Allergies Allergies Allergy/AdvReac Type Severity Reaction Status Date / Time banana [BANANA] Allergy Unknown VOMITING/HI Verified 05/05/23 18:01 VES tomato [TOMATO] Allergy Unknown HIVES, Verified 05/05/23 18:01 SWOLLEN THROAT Assessment & Plan Assessment & Plan (1) Altered mental status: Status: Acute Code(s): R41.82 - Altered mental status, unspecified (2) Seizure: Status: Acute Code(s): R56.9 - Unspecified convulsions (3) Opiate use: Status: Acute Code(s): F11.90 - Opioid use, unspecified, uncomplicated (4) Metabolic acidosis, increased anion gap: Status: Acute Code(s): E87.29 - Other acidosis Plan The patient is a 52-year-old male with a past history of seizure disorder, opiate use disorder, alcohol use disorder admitted for seizures and altered mental status. The patient was uncooperative with care, agitated, needed to be IM medicated. Plan 1. At this moment the patient does not have capacity to take informed decisions since his postictal and encephalopathic. Also he has recently seizures. If the patient has a healthcare proxy will be advisable to be invoke. 2. Continue with p.r.n. Haldol as ordered before with Ativan or Versed. 3. Reassessment as demand. Total time managing care of this patient today __30__ minutes. Informed Consent: does not understand and further education needed
[2023-05-06] MEDS: 0.9 % Sodium Chloride 1,000 ML 150 ML IVCONT (15:02)
--- NOTE | 2023-05-06 15:10 | PC.NURSE ---
Patient to MRI at this time.
--- NOTE | 2023-05-06 16:00 | PC.NURSE ---
Patient back up from MRI at this time. Refused to get MRI done secondary to claustrophobia.
--- NOTE | 2023-05-06 16:02 | HO.MIDLINE ---
Midline Insertion MIDLINE INSERTION Diagnosis: difficult iv access Indication: iv fluids and iv ABT Pertinent Labs: reviewed Technique: Using sterile technique including cap and mask, glove and drape, the left arm was prepped and draped in the usual sterile fashion of full barrier technique with [facility]. Using ultrasound guidance, left brachial vein access was obtained . 20G x 8cm nonPASV midline catheter was positioned. The procedure was performed in formerly [facility]. Ultrasound was used to document vein patency and for needle entry. A formal ultrasound picture was recorded. Vascular Radiology Ct Technologist has released the line for use and it is currently dressed with a StatLock, Tegaderm, and CHG disc. Verification has been performed for blood return and line patency. Arm Circumference: 32cm Equipment: BARD PowerGlide ST midline catheter Catheter Type: 20G x 8cm midline catheter Lot #: [id number]
--- NOTE | 2023-05-06 16:22 | PC.NURSE ---
Attempted to flush midline, will not flush. Marina Perez RN in IR contacted for trouble shooting.
[2023-05-06] MEDS: Heparin Sodium,Porcine Flush 50 UNITS, 0.9 % Sodium Chloride Flush 5 ML IVFLUSH (17:37)
[2023-05-06] MEDS: 0.9 % Sodium Chloride Flush 3 ML SYRINGE IVFLUSH (17:41)
[2023-05-06] MEDS: levETIRAcetam 500 MG TABLET 1500 MG PO (20:21)
[2023-05-07] VITALS: BP 154/100; PULSE 86; RESP 18; TEMP 36.7; O2SAT 95
--- NOTE | 2023-05-07 01:47 | PC.NURSE ---
pt refusing monitoring tech, Dr. Lawler aware. pt's midline is not flushing, unable to run fluids, pt refusing new IV attempt, Dr. Lawler aware.
[2023-05-07] MEDS: hydrOXYzine HCL 50 MG TABLET PO (03:25)
[2023-05-07 03:47] VITALS: BP 152/106; PULSE 108; RESP 20; TEMP 36.4; O2SAT 93
[2023-05-07] MEDS: diazePAM 2 MG TABLET 1 MG PO (04:29)
[2023-05-07] MEDS: cloNIDine HCL 0.1 MG TABLET PO (05:04)
[2023-05-07 07:43] LABS: Anion Gap 18 (12-20); Blood Urea Nitrogen 10 mg/dL (9-16); Calcium 9.3 mg/dL (8.4-10.2); Carbon Dioxide 23 mmol/L (22-29); Chloride 101 mmol/L (96-108); Creatinine Clr Calc Pharmacy 147.2; Estimated Glomerular Filt Rate > 60; Glucose Random 110 mg/dL (60-115); Potassium 4.6 mmol/L (3.3-5.1); Sodium 137 mmol/L (135-145)
[2023-05-07 08:00] VITALS: BP 158/104; PULSE 80; RESP 16; TEMP 36.1; O2SAT 97
[2023-05-07] MEDS: methADONE HCl 20 MG/2 ML ORAL.CONC 65 MG PO (08:59)
[2023-05-07] MEDS: levETIRAcetam 500 MG TABLET 1500 MG PO (09:00)
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
--- NOTE | 2023-05-07 09:12 | PM.EVENT ---
Event Note Date of Service: 05/07/23 Event Note: I was called by Dr. Ibrahim and the patient demanded to be discharged. As per Dr. Ibrahim, the patient is awake and alert, coherent and stated that he has seizure disorder. Dr. Ibrahim reported that they are not acute medical conditions to keep him here so I advised him that if he is coherent and stable, he can be discharged, he can have capacity for discharge planning. Time Spent With Patient Time: Total time managing care of this patient today ____ minutes.
--- NOTE | 2023-05-07 09:41 | MHC.CM.PN ---
pt insists on leaving, CM contacted care home, [facility] in [place], to determine if he can go there. They said he can, and he just needs to bring his DC summary with him. Pt. was informed of this.
== END 2023-05-07 10:41 | disposition left against medical advice (07) | DRG 53 ==
LOC: HO.ED 18:50 → HO.EDOVER 20:31 → HO.IMC 22:08
PROVIDERS: Internal Medicine; Nurse Practitioner Family; Admitting Provider Internal Medicine; Emergency Provider Emergency Medicine; PCP Family Medicine; Visit Provider Internal Medicine
PROC: 05HA33Z Insertion of Infusion Device into Left Brachial Vein, Percutaneous Approach (ICD-10-PCS; principal; 2023-05-06 12:10)
DX: G40.909 Epilepsy, unspecified, not intractable, without status epilepticus (principal); E87.21 Acute metabolic acidosis; F19.10 Other psychoactive substance abuse, uncomplicated; F17.210 Nicotine dependence, cigarettes, uncomplicated; E87.6 Hypokalemia; F11.20 Opioid dependence, uncomplicated; Z71.6 Tobacco abuse counseling; Z20.822 Contact with and (suspected) exposure to COVID-19; Z79.899 Other long term (current) drug therapy
CPT/HCPCS: 0241U; 36410; 36415; 70450; 71250; 72125; 74176; 80048; 80053; 80143; 80179; 80307; 81003; 82010; 82550; 82803; 82947; 83605; 83690; 83735; 84484; 85025; 85027; 85610; 87040; 92610; 93005; 99285; C1751; J1200; J1630; J1642; J1953; J2250; J3360; J3480

== ENCOUNTER → 2023-05-05 15:47 | Outpatient (BNV) | payer MEDICAID, SELFPAY | PROVIDERS: Admitting Provider Internal Medicine; Emergency Provider Emergency Medicine; Visit Provider Internal Medicine Cardiovascular Disease | DX: R00.0 Tachycardia, unspecified (principal) | CPT/HCPCS: 93010 ==

== ENCOUNTER → 2023-05-05 20:25 | Outpatient (BNV) | payer OTHER, SELFPAY | PROVIDERS: Admitting Provider Internal Medicine; Emergency Provider Emergency Medicine; Visit Provider Psychiatry & Neurology Psychiatry | DX: F11.90 Opioid use, unspecified, uncomplicated (principal); R56.9 Unspecified convulsions; R41.82 Altered mental status, unspecified; E87.29 Other acidosis | CPT/HCPCS: 99232; 99499 ==

== ENCOUNTER → 2023-05-05 20:25 | Outpatient (BNV) | payer MEDICAID, SELFPAY | PROVIDERS: Admitting Provider Internal Medicine; Emergency Provider Emergency Medicine; Visit Provider Internal Medicine | DX: R41.82 Altered mental status, unspecified (principal); R56.9 Unspecified convulsions; F11.90 Opioid use, unspecified, uncomplicated; E87.29 Other acidosis | CPT/HCPCS: 99223; 99232; 99238 ==

== ENCOUNTER → 2023-05-05 20:25 | Outpatient (BNV) | payer MEDICAID, SELFPAY | PROVIDERS: Admitting Provider Internal Medicine; Emergency Provider Emergency Medicine; Visit Provider Psychiatry & Neurology Neurology | DX: R56.9 Unspecified convulsions (principal) | CPT/HCPCS: 99222 ==

== ENCOUNTER 2023-05-09 14:27 | Inpatient (IN) | payer MEDICAID, SELFPAY ==
--- NOTE | 2023-05-09 | EEG_ITS ---
This is a 16 channel EEG with an EKG lead. The patient is reported alert and awake during the tracing. Background EEG rhythm is 12 to 14 hertz 5 to 15 microvolt posteriorly and lower amplitude fast anteriorly. Intermittently periods of mostly generalized theta to delta range discharges were noted that were posterior predominant. Rarely, this seemed to start in right hemisphere before left. No definite sharp wave or spike was noted. Cardiac lead did not reveal any significant abnormality. Photic stimulation did not produce any driving. Hyperventilation was not performed. IMPRESSION: Abnormal EEGs suggestive of bihemispheric dysfunction, though this pattern was not clearly indicative of seizure disorder. If seizure disorder is strongly suspected, further EEG monitoring with ambulatory EEG is recommended. MD YONATHAN Jaimes/THALIA / [phone]
--- NOTE | ~2023-05-09 | MR_ITS ---
EXAMINATION: MR BRAIN WITHOUT CONTRAST CLINICAL INFORMATION: Seizure. Claustrophobia. COMPARISON: CT scan of the head 05/09/2023. TECHNIQUE: MRI of the brain was obtained using routine sequences without contrast. FINDINGS: Patient motion degrades image quality therefore the diagnostic accuracy of this examination is limited. Have hippocampal size and signal intensity cannot be accurately assess on coronal oblique imaging through the temporal lobes. There are scattered nonspecific foci of T2 FLAIR signal hyperintensity within the periventricular white matter. No acute territorial infarct. No pathological magnetic susceptibility artifact. Intracranial vascular flow voids are maintained. There is a rounded flow void adjoining the intradural segment of the right vertebral artery on axial image 2 of 27 series 10 that raises the possibility of an intradural aneurysm. There is no intracranial mass effect or midline shift. No hydrocephalus. Midline structures including the cervicomedullary junction are normal. No acute bone marrow signal changes. There is no mastoid or middle ear effusion. Moderate paranasal sinus disease primarily affecting the ethmoid air cells and the alveolar recess of the right maxillary sinus. Globes and orbits are symmetric. MR/MR head/brain wo con IMPRESSION: Patient motion degrades image quality therefore the diagnostic accuracy of this examination is limited. There are scattered chronic small vessel ischemic changes within the periventricular white matter. No evidence of acute territorial infarct or hemorrhage. There is a rounded flow void adjoining the intradural segment of the right vertebral artery that raises the possibility of an intradural aneurysm. A dedicated CT angiogram of the head is recommended for better anatomic characterization of this finding.
--- NOTE | ~2023-05-09 | CT_ITS ---
CT HEAD WITHOUT IV CONTRAST INDICATION: Seizure. COMPARISON: Head CT 05/05/2023. TECHNIQUE: Multidetector CT acquisitions of the head was obtained without IV contrast. This CT examination was performed using dose optimization techniques as appropriate, variously including the following: *Automated exposure control *Adjustment of mA and/or kV according to patient size (this includes techniques or standardized protocols for targeted exams where dose is matched to indication/reason for exam; i.e. extremities or head) *Use of iterative reconstruction technique FINDINGS: There is no intracranial hemorrhage, hydrocephalus, extra-axial surface collection, midline shift, or other herniation pattern. Buenrostro to white matter differentiation is diffusely maintained without evidence of an evolved acute territorial infarct. The basilar cisterns are preserved. No significant soft tissue abnormality. No acute osseous abnormality. Mild sinus mucosal disease. Left occipital scalp swelling. CT/CT head/brain wo IV con IMPRESSION: - No acute intracranial abnormality. MRI would be more sensitive in the setting of seizure. - Left occipital scalp swelling.
[2023-05-09 14:34] VITALS: BP 102/72; BP 97/46; PULSE 64; PULSE 68; RESP 18; TEMP 36.5; O2SAT 94; O2SAT 95; BMI 32.6
[2023-05-09 14:43] VITALS: BP 97/46; PULSE 65; RESP 16; TEMP 36.5; O2SAT 94
--- NOTE | 2023-05-09 14:45 | PC.NURSE ---
pt presents to ED via EMS, pt was here on 05/05 for multiple seizures. pt called for EMS today because he felt fuzzy and not right today, blurry in left eye, weakness and memory issues. pt reports multiple falls today and yesterday, pt reports neck pain, 09/01. pt denies drug or alcohol use today. pt alert and oriented, breathing even and unlabored, skin warm and slightly pale.
--- NOTE | 2023-05-09 14:49 | PC.NURSE ---
pt placed on bedside monitor, NSR. Seizure pads placed as precaution due to seizure hx and pt not feeling well.
[2023-05-09 17:09] VITALS: BP 93/52; PULSE 62; RESP 14; TEMP 36.5; O2SAT 95
--- NOTE | 2023-05-09 17:10 | PC.NURSE ---
pt alert and oriented, denies any pain or vision issues at this time. pt reports i took a nap and feel so much better now . vss
--- NOTE | 2023-05-09 17:50 | ED_ITS ---
HPI - General Adult General Chief complaint: Altered Mental Status Stated complaint: MEMORY/BALANCE ISSUES, RECENT STROKE PER EMS Time Seen by Provider: 05/09/23 17:24 Source: patient Mode of arrival: EMS Limitations: no limitations History of Present Illness HPI narrative: Patient 52 years old with history of seizure disorder polysubstance abuse IVDU and alcohol use was admitted here on 05/05 for generalized tonic-clonic seizure witnessed in the bus ,during stay in hospital patient had 2 or 3 seizures noticed to have elevated CPK in 3000 range with normal renal functions on 05/06 patient left AMA yesterday since yesterday patient has been feeling weak tired not feeling good for generalized body aches hence he came to the ER patient has been drinking enough fluids normal urine color denies any substance abuse since discharge Related Data Home Medications Medication Instructions Recorded Confirmed gabapentin 300 mg capsule 300 mg PO BID 05/06/23 05/09/23 levetiracetam 500 mg tablet 1,000 mg PO BID 05/06/23 05/09/23 clonidine HCl 0.1 mg tablet 0.1 mg PO BID PRN Anxiety 05/09/23 05/09/23 methadone 10 mg/mL oral 65 mg PO DAILY 05/09/23 05/09/23 concentrate (Methadose) Allergies Allergy/AdvReac Type Severity Reaction Status Date / Time banana [BANANA] Allergy Unknown VOMITING/HI Verified 05/05/23 18:01 VES tomato [TOMATO] Allergy Unknown HIVES, Verified 05/05/23 18:01 SWOLLEN THROAT Review of Systems 2 Review of Systems: Yes all other systems are reviewed and are negative [facility] Past Medical History Medical History Alcohol use disorder Opioid use disorder Seizure disorder Social History Social History Household Members: Other Housing: Apartment Do you presently have visiting nurse or other home services: No Patient Tobacco Use Status: Current someday Tobacco user Tobacco use type: Cigarette Cigarettes Per Day: 6 Physical Exam ED Vital Signs: Vital Signs - 24 hr 05/09/23 14:34 05/09/23 14:43 05/09/23 17:09 Temperature 97.7 F 97.7 F 97.7 F Pulse Rate 64 65 62 Respiratory Rate 18 16 14 Blood Pressure 97/46 L 97/46 L 93/52 L Pulse Oximetry 94 94 95 Oxygen Delivery Method Room Air Room Air Room Air 05/09/23 19:05 Temperature 98.1 F Pulse Rate 57 Respiratory Rate 12 Blood Pressure 114/64 Pulse Oximetry 95 Oxygen Delivery Method Room Air BMI result Body Mass Index 32.6 Appearance: Alert. Oriented X3. No acute distress. Eyes: No pallor ENT: Pharynx normal. Oral Mucosa moist Neck: Normal inspection. Neck supple. CVS: Normal heart rate and rhythm. Pulses normal. Respiratory: No respiratory distress. Equal air entry bilateral, no wheezing/rales/rhonchi Abdomen: Soft and nontender. Bowel sounds are present, no mass palpable, no CVA tenderness Skin: Skin warm and dry. Normal skin color. Normal skin turgor. Extremities: No lower extremity edema. No calf tenderness Neuro: Oriented X 3. No motor deficit. Medications Administered Generic Name Dose Route Start Last Admin Trade Name Freq PRN Reason Stop Dose Admin Enoxaparin Sodium 30 mg 05/09/23 20:00 05/09/23 20:27 Enoxaparin Sodium 30 Mg/0.3 Ml Syringe SUBCUT 30 mg Q24H TANISHA Administration Gabapentin 300 mg 05/09/23 21:15 05/09/23 22:10 Gabapentin 300 Mg Capsule PO 300 mg BID TANISHA Administration Sodium Chloride 1,000 mls @ 150 mls/hr 05/09/23 19:30 05/09/23 21:22 Ns IVCONT 150 mls/hr .Q6H40M TANISHA Administration Discontinued Medications Generic Name Dose Route Start Last Admin Trade Name Freq PRN Reason Stop Dose Admin Sodium Chloride 1,000 mls @ 999 mls/hr 05/09/23 17:50 05/09/23 19:52 Ns IV 05/09/23 18:50 Infused .Q1H1M ONE Infusion Sodium Chloride 1,000 mls @ 999 mls/hr 05/09/23 18:33 05/09/23 20:59 Ns IV 05/09/23 19:33 Infused .Q1H1M ONE Infusion Levetiracetam 1,000 mg in 100 mls @ 400 mls/hr 05/09/23 19:33 05/09/23 20:45 Keppra IV 05/09/23 19:47 Infused ONCE ONE Infusion Medical Decision Making Medical Decision Making MDM Narrative: Patient with acute renal failure secondary to rhabdomyolysis which is likely from medications and seizures which were given during last stay started on IV fluids were started , on bicarb drip admit to medical floor Differential Diagnosis Differential Diagnoses: The differential diagnosis associated with the presentation includes Admission/Observation Consideration of admission/observation: Escalation of care including admission/observation considered Consult Healthcare Provider Management of the patient was discussed with: Hospitalist Lab Data MDM Lab Attestation statement: I reviewed the patient's lab results. 05/09/23 17:54 05/09/23 17:54 Labs: Lab Results 05/09/23 05/09/23 Range/Units 17:54 19:08 WBC 6.6 (4.8-10.8) X10*3/uL RBC 3.63 L (4.60-5.80) X10*6/uL Hgb 10.5 L (14.0-18.0) g/dl Hct 30.5 L (42.0-52.0) % MCV 84.0 (80.0-98.0) fL MCH 28.9 (27.0-33.0) pg MCHC 34.4 (31.0-36.0) g/dl RDW 14.2 (11.0-16.0) % Plt Count 263 (160-400) X10*3/uL MPV 9.1 L (9.4-12.4) fL Immature Gran % (Auto) 0.8 H (0.0-0.4) % Neut % (Auto) 52.0 (45-73) % Lymph % (Auto) 30.9 (20-40) % [place] % (Auto) 13.4 H (2-11) % Eos % (Auto) 2.4 (0-4) % Baso % (Auto) 0.5 (0-2) % Lymph # (Auto) 2.0 (1.2-4.9) X10*3/uL [place] # (Auto) 0.9 (0.1-1.2) X10*3/uL Eos # (Auto) 0.2 (0.0-0.4) X10*3/uL Baso # (Auto) 0.0 (0.0-0.2) X10*3/uL Abs Immat Gran (auto) 0.05 H (0.00-0.03) X10*3/uL Absolute Neuts (auto) 3.4 (2.0-8.3) x10*3/uL Absolute Nucleated RBC 0.040 H (0.0-0.012) X10*3/uL Nucleated RBC % (auto) 0.6 H (0.0-0.2) /100WBC Sodium 135 (135-145) mmol/L Potassium 3.8 (3.3-5.1) mmol/L Chloride 95 L (96-108) mmol/L Carbon Dioxide 27 (22-29) mmol/L Anion Gap 17 (12-20) BUN 59 H (9-16) mg/dL Creatinine 5.42 H* (0.5-1.4) mg/dL Estim Creat Clear Calc 19.0 Estimated GFR 11 Random Glucose 113 (60-115) mg/dL Lactic Acid 1.2 (0.5-2.0) mmol/L Calcium 9.3 (8.4-10.2) mg/dL Magnesium 2.3 (1.6-2.6) mg/dL Total Bilirubin 0.2 (0.0-1.0) mg/dL AST 126 H (5-37) U/L ALT 35 (0-40) U/L Alkaline Phosphatase 113 (39-117) U/L Total Creatine Kinase 03235 H (38-174) U/L Total Protein 8.1 H (6.5-8.0) g/dL Albumin 3.7 (3.5-5.0) g/dL Urine Opiates Screen Not Detected (Not Detect) Urine Fentanyl Screen POSITIVE H (Not Detect) Ur Barbiturates Screen Not Detected (Not Detect) Ur Phencyclidine Scrn Not Detected (Not Detect) Ur Amphetamines Screen Not Detected (Not Detect) U Benzodiazepines Scrn POSITIVE H (Not Detect) Urine Cocaine Screen Not Detected (Not Detect) U Marijuana (THC) Screen Not Detected (Not Detect) Discharge Plan Discharge Clinical Impression: NINI (acute kidney injury), Rhabdomyolysis Patient Disposition: Admitted As Inpatient Interventions: Admission Worksheet (ED) Last Done: 05/09/23 21:05 Discharge Date/Time: 05/09/23 21:43
[2023-05-09 18:04] LABS: MANUAL DIFF FLAG NO
[2023-05-09] MEDS: 0.9 % Sodium Chloride 1,000 ML 999 ML IV ×2 (18:08→19:51)
[2023-05-09 18:11] LABS: Lactic Acid 1.2 mmol/L (0.5-2.0)
[2023-05-09 18:15] LABS: Basophils Percent Auto 0.5 % (0-2); Eosinophils Absolute Auto 0.2 X10*3/uL (0.0-0.4); Eosinophils Percent Auto 2.4 % (0-4); Hematocrit 30.5 % (42.0-52.0); Hemoglobin 10.5 g/dl (14.0-18.0); Imm Gran Abs Auto 0.05 X10*3/uL (0.00-0.03); Imm Gran Pct Auto 0.8 % (0.0-0.4); Lymphocytes Percent Auto 30.9 % (20-40); Mean Corpuscular HGB Conc 34.4 g/dl (31.0-36.0); Mean Corpuscular Hemoglobin 28.9 pg (27.0-33.0); Mean Platelet Volume 9.1 fL (9.4-12.4); Monocytes Absolute Auto 0.9 X10*3/uL (0.1-1.2); Monocytes Percent Auto 13.4 % (2-11); NRBC Pct Auto 0.6 /100WBC (0.0-0.2); Neutrophils Absolute Auto 3.4 x10*3/uL (2.0-8.3); Platelet Count 263 X10*3/uL (160-400); Red Blood Count 3.63 X10*6/uL (4.60-5.80); Red Cell Distribution Width 14.2 % (11.0-16.0); White Blood Count 6.6 X10*3/uL (4.8-10.8)
[2023-05-09 18:20] LABS: Alanine Aminotransferase 35 U/L (0-40); Albumin Level 3.7 g/dL (3.5-5.0); Alkaline Phosphatase 113 U/L (39-117); Anion Gap 17 (12-20); Aspartate Amino Transferase 126 U/L (5-37); Bilirubin Total 0.2 mg/dL (0.0-1.0); Blood Urea Nitrogen 59 mg/dL (9-16); Calcium 9.3 mg/dL (8.4-10.2); Carbon Dioxide 27 mmol/L (22-29); Chloride 95 mmol/L (96-108); Estimated Glomerular Filt Rate 11; Glucose Random 113 mg/dL (60-115); Magnesium 2.3 mg/dL (1.6-2.6); Potassium 3.8 mmol/L (3.3-5.1); Sodium 135 mmol/L (135-145); Total Protein 8.1 g/dL (6.5-8.0)
--- NOTE | 2023-05-09 18:22 | PC.NURSE ---
Security placed backpack in decon due ?needles or paraphenlia in belongings per Oliverio in security, pt has wallet, phone and air pod case on person
[2023-05-09 19:05] VITALS: BP 114/64; PULSE 57; RESP 12; TEMP 36.7; O2SAT 95
--- NOTE | 2023-05-09 19:18 | PC.NURSE ---
Assumed care of patent at 19:00, patient is alert and oriented x4, ambulated to the restroom under supervision of RN, gait is steady. Patient reports constant pain in his neck ranging from 4-9/10, patient reports pain in postictal and usually resolves on its own. IV fluids infusing. Patient requesting a snack. Seizure precautions in place, call narayan within patient's reach.
[2023-05-09 19:21] LABS: Amphetamine Screen Urine Not Detected (Not Detect); Barbiturates, Urine Not Detected (Not Detect); Benzodiazepines Screen Urine POSITIVE (Not Detect); Cannabinoid Screen Urine Not Detected (Not Detect); Cocaine Screen Urine Not Detected (Not Detect); Fentanyl, urine POSITIVE (Not Detect); Opiate Screen Urine Not Detected (Not Detect); Phencyclidine Screen Urine Not Detected (Not Detect)
--- NOTE | 2023-05-09 19:32 | PC.NURSE ---
Patient provided with tuna fish sandwich, krystal nahum, chocolate ice cream, tolerated well.
--- NOTE | 2023-05-09 19:44 | PM.IMHP ---
History of Present Illness Date of Service: 05/09/23 Attending physician on admission: Xiao Lawler Chief Complaint: Seizure Pt is a 52-year-old male with a PMH significant for?seizure disorder, polysubstance use disorder, IVDU, and alcohol use disorder who presents to the ED with?moments of confusion and generalized weakness, especially in lower body. Patient was recently admitted to the hospital on 05/05/2023 from the mental status likely in the setting of drug use, as well as breakthrough seizures. Patient had CT of head that showed mild asymmetric hypoattenuation of the left occipital cortex possibly indicative of acute stroke. Patient was seen by Neurology who recommended MRI, but patient refused. Patient also had witnessed seizures in both the ED and while inpatient. On 05/07/2023 patient left AMA. Since then patient states that he has been experiencing moments of confusion and ?collapsing?. Says he feels like ?someone else is in control of my body?. Reports that he can move his arms, but is unable to properly move his lower extremities. Patient lives in a half-way and states sometimes he has to have his roommate and brother pick him up and put him into the bed. Denies any substance use since discharge. Denies any seizure activity since discharge, and indicates he has been taking his medications as prescribed. However, upon further questioning patient points out that he ?pretty much stays on top of? his antiseizure medication. Reports taking his meds approximately 10 days out of 14, though he admits some of those days he takes his medications he only takes them one, not two, times per day. It is also unclear if pt's moments of confusion the past few days are indicative of postictal state. Patient states he now realizes that he made a ?mistake? in leaving the hospital early. Patient admits to having chills and dark colored urine that lightens as he continues to urinate. Denies chest pain/pressure, palpitations. In the ED pt initially with soft BP as low as 93/52, otherwise vitals WNL. Labs were significant for BUN 59, creatinine 5.42, CPK 13,228. Tox screen positive for fentanyl and benzos. Tox screen positive for fentanyl and benzos. CT?of head showed no acute intracranial abnormality, though did show left occipital scalp swelling. Pt was treated with IVF. Pt will be admitted to the hospital for treatment and further evaluation of NINI in the setting of rhabdomyolysis. Review of Systems Review of Systems: Confusion Lower extremity weakness Dark-colored urine Denies chest pain/pressure, palpitations No shortness a breath No nausea, vomiting, diarrhea, abdominal pain PMFSH Medical History Alcohol use disorder Opioid use disorder Seizure disorder Social History Household Members: Unknown / Unable to assess Housing: Unknown / Unable to assess Patient Tobacco Use Status: Current everyday Tobacco user Smoked in Last 30 Days: Yes Use of substances other than those prescribed or required for medical reasons: No Advance Directives: No Advance Directives Information Provided: No Nutrition Risks: No Nutritional Risk Meds Allergies Allergy/AdvReac Type Severity Reaction Status Date / Time banana [BANANA] Allergy Unknown VOMITING/HI Verified 05/05/23 18:01 VES tomato [TOMATO] Allergy Unknown HIVES, Verified 05/05/23 18:01 SWOLLEN THROAT Active Medications: Current Medications Acetaminophen (Acetaminophen 325 Mg Tablet) 650 mg PO Q6H PRN PRN Reason: Pain, Mild (Pain Scale 1-3) Enoxaparin Sodium (Enoxaparin Sodium 30 Mg/0.3 Ml Syringe) 30 mg SUBCUT Q24H [facility] Sodium Chloride (Ns) 1,000 mls @ 150 mls/hr IVCONT .Q6H40M [facility] Levetiracetam (Keppra) 1,000 mg in 100 mls @ 400 mls/hr IV ONCE ONE Stop: 05/09/23 19:47 Melatonin (Melatonin 3 Mg Tablet) 6 mg PO BEDTIME PRN PRN Reason: Insomnia Ondansetron HCl (Ondansetron Hcl 4 Mg/2 Ml Vial) 4 mg IVPUSH Q8H PRN PRN Reason: Nausea and Vomiting Sodium Chloride (0.9 % Sodium Chloride Flush 3 Ml Syringe) 3 ml IVFLUSH QSHIFT [facility] Home Medications Medication Instructions Recorded Confirmed Last Taken Type gabapentin 300 mg capsule 300 mg PO BID 05/06/23 05/09/23 Unknown History levetiracetam 500 mg tablet 1,000 mg PO BID 05/06/23 05/09/23 Unknown History clonidine HCl 0.1 mg tablet 0.1 mg PO BID PRN Anxiety 05/09/23 05/09/23 Unknown History methadone 10 mg/mL oral 65 mg PO DAILY 05/09/23 05/09/23 05/09/23 07:59 History concentrate (Methadose) Physical Exam Vital Signs and Narrative: Vital Signs: Last Vital Signs Temp 98.1 F 05/09/23 19:05 Pulse 57 05/09/23 19:05 Resp 12 05/09/23 19:05 BP 114/64 05/09/23 19:05 Pulse Ox 95 05/09/23 19:05 O2 Del Method Room Air 05/09/23 19:05 BMI result Body Mass Index 32.6 Constitutional: Alert, in no acute distress. Mental Status: Oriented to person, place and time. Eyes: Pupils are equal, round, and reactive to light. Ear, Nose, and Throat: Oropharynx clear, mucous membranes moist. Ears and nose without deformities. Trachea midline. Respiratory: Diffuse bilateral wheezing. Cardiovascular: S1, S2 regular. No murmurs, rubs, or gallops. Gastrointestinal: Abdomen soft, non-tender, non-distended. Normal bowel sounds. Neurologic: Cranial nerves II-XII are grossly intact bilaterally. No focal neurological deficits. Moves all extremities spontaneously. Skin: Warm, dry. Musculoskeletal: No cyanosis or clubbing. Extremities: No edema. Psychiatric: Normal mood and affect. Results Labs 05/09/23 17:54 05/09/23 17:54 Labs: Laboratory Results - last 24 hr 05/09/23 05/09/23 17:54 19:08 MCV 84.0 MCH 28.9 MCHC 34.4 RDW 14.2 Plt Count 263 MPV 9.1 L Immature Gran % (Auto) 0.8 H Neut % (Auto) 52.0 Lymph % (Auto) 30.9 Henry % (Auto) 13.4 H Eos % (Auto) 2.4 Baso % (Auto) 0.5 Lymph # (Auto) 2.0 Henry # (Auto) 0.9 Eos # (Auto) 0.2 Baso # (Auto) 0.0 Abs Immat Gran (auto) 0.05 H Absolute Neuts (auto) 3.4 Absolute Nucleated RBC 0.040 H Nucleated RBC % (auto) 0.6 H Anion Gap 17 Estim Creat Clear Calc 19.0 Estimated GFR 11 Random Glucose 113 Lactic Acid 1.2 Calcium 9.3 Magnesium 2.3 Total Bilirubin 0.2 AST 126 H ALT 35 Alkaline Phosphatase 113 Total Creatine Kinase 04930 H Total Protein 8.1 H Albumin 3.7 Urine Opiates Screen Not Detected Urine Fentanyl Screen POSITIVE H Ur Barbiturates Screen Not Detected Ur Phencyclidine Scrn Not Detected Ur Amphetamines Screen Not Detected U Benzodiazepines Scrn POSITIVE H Urine Cocaine Screen Not Detected U Marijuana (THC) Screen Not Detected Assessment and Plan (1) NINI (acute kidney injury): Status: Acute (2) Rhabdomyolysis: Status: Acute Plan Pt is a 52-year-old male with a PMH significant for?seizure disorder, polysubstance use disorder, IVDU, and alcohol use disorder who presents to the ED with?moments of confusion and generalized weakness, especially in lower body. Pt will be admitted to the hospital for treatment and further evaluation of NINI in the setting of rhabdomyolysis. Rhabdomyolysis CPK 340 on 05/05, 3990 on 05/06, and now 13,228 on 05/09; pt with dark colored urine Unclear etiology: Possibly in the setting of seizure disorder or drug overdose, but patient does state he has been feeling weak and mostly staying in bed the past 4-5 days Will aggressively resuscitate with IVF Repeat CPK tomorrow Acute kidney injury In the setting of rhabdomyolysis Creatinine 5.42 at time of presentation, up from 0.70 on 05/07/2023 Treat as above with aggressive IVF Follow BMP Question of stroke CT of head on 05/05 with possible acute infarct; CT of head today with no clear acute intracranial abnormality Will get MRI of head/brain tomorrow Neurology consult Seizure disorder Pt not compliant with home meds Denies seizure activity since last discharge Patient given 1000 mg Keppra IV in ED Continue home Keppra Full Code Attending:?Dr. Lawler DVT Prophylaxis: Lovenox Pt will require a hospitalization of at least two nights for treatment of?generalized weakness and NINI in the setting of rhabdomyolysis. Patient required hospitalization for treatment of significant NINI and rhabdomyolysis with aggressive fluid resuscitation with IVF and close monitoring labs. Quality Stroke Does the patient have a stroke diagnosis?: No VTE Prior VTE?: No VTE Risk Level:: Medical - moderate - high VTE Device Contraindication: Treatment Not Indicated VTE Drug Contraindication: N/A - Med Ordered
--- NOTE | 2023-05-09 20:23 | PHA.MEDREC ---
Pharmacy Consult ? Medication Reconciliation Pharmacy has completed the medication reconciliation. Patient not confident on Keppra dose. Report 750 mg twice a day, but then state he some times takes 3 tablets in the morning and 2 tablets at night. Due to the uncertainly, per claim history prescription stats 500 mg 2 tabs BID therefore left as prescription states. Luz Coe, MenaD
[2023-05-09] MEDS: levETIRAcetam in NaCl (iso-os) 1,000 MG/100 ML PIGGYBACK 400 MG IV (20:27)
[2023-05-09] MEDS: Enoxaparin Sodium 30 MG/0.3 ML SYRINGE SUBCUT (20:27)
--- NOTE | 2023-05-09 20:27 | HE.PHANOTE ---
Methadone Verifcation Patient gave provider last dose verification letter from [facility] that stated; last dose of methadone 65 mg on 05/09/23 at @ [id number]. Signed by Adam Reyes at the clinic. Luz Coe, MenaD
[2023-05-09 21:22] VITALS: BP 103/57; PULSE 65; RESP 11; TEMP 37.1; O2SAT 95
[2023-05-09] MEDS: 0.9 % Sodium Chloride 1,000 ML 150 ML IVCONT (21:22)
[2023-05-09 21:55] VITALS: BP 116/77; PULSE 69; RESP 18; TEMP 36.5; O2SAT 96
[2023-05-09] MEDS: Gabapentin 300 MG CAPSULE PO (22:10)
[2023-05-09 23:08] LABS: Appearance Urine Cloudy; Color Urine Yellow; Glucose Urine UA 250 mg/dL (Negative); Leukocyte Esterase Urine Trace (Negative); Nitrite Urine Negative (Negative); PH 5.5 (5.0-9.0); UMIC TRIGGER UACC YES; Urine Blood Large (3+) (Negative); Urine Ketones Negative (Negative); Urine Protein 100 (2+) mg/dL (Neg-Trace)
[2023-05-09 23:16] LABS: Bacteria Urine None Seen (None Seen); Calcium Oxalate Crystals Urine Present; Hyaline Casts Urine >20 /LPF (0-2); RBC Urine 0-2 /HPF (0-2); Squamous Epithelial Cell Urine >20 /HPF (0-2); WBC Urine 0-5 /HPF (0-5)
[2023-05-10] VITALS: BP 107/64; PULSE 61; RESP 16; TEMP 36; O2SAT 95
[2023-05-10] MEDS: 0.9 % Sodium Chloride 1,000 ML 150 ML IVCONT ×3 (03:48→19:24)
[2023-05-10 04:10] LABS: Appearance Urine Clear; Color Urine Yellow; Glucose Urine UA 500 mg/dL (Negative); Leukocyte Esterase Urine Negative (Negative); Nitrite Urine Negative (Negative); PH 5.5 (5.0-9.0); Specific Gravity - Urine 1.015 (1.005-1.025); UMIC TRIGGER UACC YES; Urine Blood Moderate (2+) (Negative); Urine Ketones Negative (Negative); Urine Protein 30 (1+) mg/dL (Neg-Trace)
[2023-05-10 04:19] LABS: Creatinine Urine 90.02 mg/dL
[2023-05-10 04:22] LABS: Bacteria Urine None Seen (None Seen); RBC Urine 0-2 /HPF (0-2); Squamous Epithelial Cell Urine 0-2 /HPF (0-2); WBC Urine 0-5 /HPF (0-5)
[2023-05-10 05:31] LABS: Basophils Percent Auto 0.4 % (0-2); Eosinophils Absolute Auto 0.1 X10*3/uL (0.0-0.4); Eosinophils Percent Auto 2.5 % (0-4); Hematocrit 29.2 % (42.0-52.0); Hemoglobin 10.2 g/dl (14.0-18.0); Imm Gran Abs Auto 0.04 X10*3/uL (0.00-0.03); Imm Gran Pct Auto 0.7 % (0.0-0.4); Lymphocytes Absolute Auto 1.9 X10*3/uL (1.2-4.9); Lymphocytes Percent Auto 34.8 % (20-40); MANUAL DIFF FLAG SCAN; Mean Corpuscular HGB Conc 34.9 g/dl (31.0-36.0); Mean Corpuscular Hemoglobin 28.4 pg (27.0-33.0); Mean Corpuscular Volume 81.3 fL (80.0-98.0); Mean Platelet Volume 9.9 fL (9.4-12.4); Monocytes Absolute Auto 0.7 X10*3/uL (0.1-1.2); Monocytes Percent Auto 12.7 % (2-11); Neutrophils Absolute Auto 2.7 x10*3/uL (2.0-8.3); Neutrophils Percent Auto 48.9 % (45-73); PLT CLUMP 1; Red Blood Count 3.59 X10*6/uL (4.60-5.80); Red Cell Distribution Width 14.1 % (11.0-16.0); SCAN SMEAR FLAG 1
[2023-05-10 05:32] LABS: White Blood Count 5.6 X10*3/uL (4.8-10.8)
[2023-05-10 05:52] LABS: Anion Gap 14 (12-20); Blood Urea Nitrogen 43 mg/dL (9-16); Calcium 8.9 mg/dL (8.4-10.2); Carbon Dioxide 21 mmol/L (22-29); Chloride 107 mmol/L (96-108); Creatinine Clr Calc Pharmacy 35.9; Estimated Glomerular Filt Rate 23; Glucose Random 110 mg/dL (60-115); Potassium 4.3 mmol/L (3.3-5.1); Sodium 138 mmol/L (135-145)
[2023-05-10 06:09] LABS: SLIDE REVIEW VERIFIED
[2023-05-10 07:33] VITALS: BP 95/57; PULSE 68; RESP 20; TEMP 36.4; O2SAT 94
[2023-05-10] MEDS: Gabapentin 300 MG CAPSULE PO ×2 (08:28→21:10)
[2023-05-10] MEDS: levETIRAcetam 1,000 MG TABLET 1000 MG PO ×2 (08:29→21:10)
[2023-05-10] MEDS: methADONE HCl 20 MG/2 ML ORAL.CONC 65 MG PO (08:29)
--- NOTE | 2023-05-10 10:20 | HO.WOUND ---
Wound Consult: Initial 52yr old?M admitted to [facility] on 05/09/23 - See progress notes and H&P for detailed history. Wound consult placed for Left Leg Wound POA .? Patient agreeable to assessment and photo documentation.? Pt denies knowing etiology of wound - he denies being aware of trauma to the site - he does appear to have evidence of pervious injury and swelling. Legs are currently elevated in recliner chair - patient advised to elevate lower legs throughout the day - demonstrates understanding. Left Locke Etiology: ?Venous Wound vs Traumatic Injury Wound Bed: two wound sites - pink moist wound bed marbled with moist yellow slough Drainage / Odor: malodor noted when dressing removed - given the amount of drainage this may be a cause of the odor Color was yellow blanton slight green coloring Edges: ? Epibole and irregular Margie wound: ?hyperpigmentation, scar tissue noted, mild pink erythema noted, firm chronic swelling observed - No fluctuance or warmth noted. Pain: tender to touch Goals of Treatment: ? Moisture management with durafiber AG Recommendations: 1. Turn and Reposition every 2 hours and as needed for patient comfort.? Use pillows or wedges to support off loading positions. 2. Off Load all bony prominences with use of pillows and heel boots if needed.? Apply Preventative foams where needed. ? 3. Monitor for incontinence and moisture control, use barrier creams when needed for prevention and treatment. 4. Provide adequate and supplemental nutrition.? 5. Order or Continue low air loss mattress. 6. When applicable maintain blood glucose levels per Providers order. 7. Left Locke - Cleanse and irrigate with NS, pat dry. Applt skin prep to the periwound. Pack wound beds (2) with cut to size Durafiber AG, cover with ABD pad and gauze wrap or Foam dressing. Change daily while inpatient. At time of discharge may push change to every other day. Alginate and Hydrofibers may stay in place for up to 5 days. Re-consult wound care Nurse for wound deterioration or wound changes.
[2023-05-10] MEDS: Nicotine 14 MG PATCH.TD24 TRANSDERMA (10:45)
[2023-05-10] MEDS: guaiFENesin DM 200/20/10 ML 10 ML SYRUP PO (10:53)
--- NOTE | 2023-05-10 11:15 | MHC.CM.PN ---
pt lives in [facility] where he has live for 1 yr pt explinds that he receves counseling for his substance abuse there as well pt reprots he will take a bus or cab when dc dc plan home no servies
--- NOTE | 2023-05-10 14:28 | HO.PM.IMPN ---
Subjective Subjective Date of Service: 05/10/23 Interval History: seen and examined this morning follow up for NINI, rhabdo feeling better this am Review of Systems Review of Systems: Yes all other systems are reviewed and are negative Constitutional Constitutional: Denies chills and Denies fever(s) Cardiovascular Cardiovascular: Denies chest pain, Denies palpitations and Denies dyspnea Respiratory Respiratory: Denies cough and Denies dyspnea Gastrointestinal Gastrointestinal: Denies abdominal pain Endocrine Endocrine: Denies palpitations Physical Exam Vital Signs: Vital Signs: Last Vital Signs Temp 97.5 F 05/10/23 07:33 Pulse 68 05/10/23 07:33 Resp 20 05/10/23 07:33 BP 95/57 L 05/10/23 07:33 Pulse Ox 94 05/10/23 07:33 O2 Del Method Room Air 05/10/23 07:33 BMI result Body Mass Index 32.6 Const: General: cooperative, comfortable, no acute distress, alert and awake Nutritional Appearance: average body habitus Orientation/consciousness: patient oriented x3 Resp: Effort & Inspection: normal respiratory effort, able to speak in complete sentences, no respiratory distress and no use of accessory muscles Auscultation: clear to auscultation bilaterally Cardio: Rate: regular rate Skin: Other: right shoulder/upper arm scarring, abdominal scarring Neuro: General: patient oriented x3, moves all extremities and CN's II-XI intact bilaterally Extrem: General: Yes no pedal edema Objective Data Active Medications Acetaminophen (Acetaminophen 325 Mg Tablet) 650 mg PO Q6H PRN PRN Reason: Pain, Mild (Pain Scale 1-3) Albuterol/Ipratropium (Albuterol/Iprat 2.5/0.5mg 3 Ml Ampul.Neb) 3 ml INHALE RQ4H WHILE AWAKE PRN PRN Reason: Shortness of Breath/Wheezing Clonidine HCl (Clonidine Hcl 0.1 Mg Tablet) 0.1 mg PO BID PRN; Protocol PRN Reason: Anxiety Enoxaparin Sodium (Enoxaparin Sodium 30 Mg/0.3 Ml Syringe) 30 mg SUBCUT Q24H [facility] Last Admin: 05/09/23 20:27 Dose: 30 mg Documented By: TRISTAN Gabapentin (Gabapentin 300 Mg Capsule) 300 mg PO BID [facility] Last Admin: 05/10/23 08:28 Dose: 300 mg Documented By: HO.S-DUQUJ Guaifenesin/Dextromethorphan (Guaifenesin Dm 200/20/10 Ml 10 Ml Syrup) 10 ml PO Q6H PRN PRN Reason: Cough Last Admin: 05/10/23 10:53 Dose: 10 ml Documented By: AUGUST Sodium Chloride (Ns) 1,000 mls @ 150 mls/hr IVCONT .Q6H40M [facility] Last Infusion: 05/10/23 14:26 Dose: 150 mls/hr Documented By: AUGUST Levetiracetam (Levetiracetam 1,000 Mg Tablet) 1,000 mg PO BID [facility] Last Admin: 05/10/23 08:29 Dose: 1,000 mg Documented By: FLORENTIN Melatonin (Melatonin 3 Mg Tablet) 6 mg PO BEDTIME PRN PRN Reason: Insomnia Methadone HCl (Methadone Hcl 20 Mg/2 Ml Oral.Conc) 65 mg PO DAILY [facility] Last Admin: 05/10/23 08:29 Dose: 65 mg Documented By: FLORENTIN Nicotine (Nicotine 14 Mg Patch.Td24) 14 mg TRANSDERMA DAILY [facility] Last Admin: 05/10/23 10:45 Dose: 14 mg Documented By: AUGUST Ondansetron HCl (Ondansetron Hcl 4 Mg/2 Ml Vial) 4 mg IVPUSH Q8H PRN PRN Reason: Nausea and Vomiting Sodium Chloride (0.9 % Sodium Chloride Flush 3 Ml Syringe) 3 ml IVFLUSH QSHIFT [facility] Last Admin: 05/10/23 09:07 Dose: Not Given Documented By: AUGUST Non-Admin Reason: IV Running Labs 05/10/23 05:19 05/10/23 05:19 Labs: Laboratory Results - last 24 hr 05/09/23 05/09/23 05/10/23 17:54 19:08 04:00 MCV 84.0 MCH 28.9 MCHC 34.4 RDW 14.2 Plt Count 263 MPV 9.1 L Immature Gran % (Auto) 0.8 H Neut % (Auto) 52.0 Lymph % (Auto) 30.9 Mccormick % (Auto) 13.4 H Eos % (Auto) 2.4 Baso % (Auto) 0.5 Lymph # (Auto) 2.0 Mccormick # (Auto) 0.9 Eos # (Auto) 0.2 Baso # (Auto) 0.0 Abs Immat Gran (auto) 0.05 H Absolute Neuts (auto) 3.4 Absolute Nucleated RBC 0.040 H Nucleated RBC % (auto) 0.6 H Smear Tech's Comments Anion Gap 17 Estim Creat Clear Calc 19.0 Estimated GFR 11 Random Glucose 113 Lactic Acid 1.2 Calcium 9.3 Magnesium 2.3 Total Bilirubin 0.2 AST 126 H ALT 35 Alkaline Phosphatase 113 Total Creatine Kinase 08608 H Total Protein 8.1 H Albumin 3.7 Urine Color Yellow Yellow Urine Appearance Cloudy Clear Urine pH 5.5 5.5 Ur Specific [place] 1.020 1.015 Urine Protein 100 (2+) H 30 (1+) H Urine Glucose (UA) 250 H 500 H Urine Ketones Negative Negative Urine Blood Large (3+) H Moderate (2+) H Urine Nitrite Negative Negative Ur Leukocyte Esterase Trace H Negative Urine RBC 0-2 0-2 Urine WBC 0-5 0-5 Ur Squamous Epith Cells >20 0-2 Calcium Oxalate Crystal Present Urine Bacteria None Seen None Seen Hyaline Casts >20 3-5 Ur Random Sodium 78.0 Urine Creatinine 90.02 Urine Opiates Screen Not Detected Urine Fentanyl Screen POSITIVE H Ur Barbiturates Screen Not Detected Ur Phencyclidine Scrn Not Detected Ur Amphetamines Screen Not Detected U Benzodiazepines Scrn POSITIVE H Urine Cocaine Screen Not Detected U Marijuana (THC) Screen Not Detected 05/10/23 05:19 MCV 81.3 MCH 28.4 MCHC 34.9 RDW 14.1 Plt Count TNP MPV 9.9 Immature Gran % (Auto) 0.7 H Neut % (Auto) 48.9 Lymph % (Auto) 34.8 Mccormick % (Auto) 12.7 H Eos % (Auto) 2.5 Baso % (Auto) 0.4 Lymph # (Auto) 1.9 Mccormick # (Auto) 0.7 Eos # (Auto) 0.1 Baso # (Auto) 0.0 Abs Immat Gran (auto) 0.04 H Absolute Neuts (auto) 2.7 Absolute Nucleated RBC 0.000 Nucleated RBC % (auto) 0.0 Smear Tech's Comments VERIFIED Anion Gap 14 Estim Creat Clear Calc 35.9 Estimated GFR 23 Random Glucose 110 Lactic Acid Calcium 8.9 Magnesium Total Bilirubin AST ALT Alkaline Phosphatase Total Creatine Kinase 8716 H Total Protein Albumin Urine Color Urine Appearance Urine pH Ur Specific [place] Urine Protein Urine Glucose (UA) Urine Ketones Urine Blood Urine Nitrite Ur Leukocyte Esterase Urine RBC Urine WBC Ur Squamous Epith Cells Calcium Oxalate Crystal Urine Bacteria Hyaline Casts Ur Random Sodium Urine Creatinine Urine Opiates Screen Urine Fentanyl Screen Ur Barbiturates Screen Ur Phencyclidine Scrn Ur Amphetamines Screen U Benzodiazepines Scrn Urine Cocaine Screen U Marijuana (THC) Screen Assessment and Plan (1) NINI (acute kidney injury): Status: Acute (2) Rhabdomyolysis: Status: Acute Plan This is a 52-year-old male with a PMH significant for?seizure disorder, polysubstance use disorder, IVDU, and alcohol use disorder who presents to the ED with?moments of confusion and generalized weakness, especially in lower body. Pt will be admitted to the hospital for treatment and further evaluation of NINI in the setting of rhabdomyolysis. Rhabdomyolysis CPK 340 on 05/05, 3990 on 05/06, and now 13,228 on 05/09 unclear if due to seizure or drug use CPK trending down continue IVF follow levels Acute kidney injury due to rhabdomyolysis 5.42 on admission, trending down to 2.87 continue IVF Follow BMP Question of stroke CT of head on 05/05 with possible acute infarct; CT of head today with no clear acute intracranial abnormality MRI recommended on previous admission, pending no focal neurological deficits appreciated Neurology consult pending Seizure disorder Pt not compliant with home meds given 1000 mg Keppra IV in ED home dose of Keppra resumed seizure precautions polysubstance use denies etoh use for the past 3-4 months last drug use reportedly one week ago addiction medicine consult pending continue methadone tobacco dependence smoking cessation advised NRT chronic normocytic anemia above transfusion threshold Full Code Attending:?Dr. Miranda DVT Prophylaxis: Lovenox requires ongoing inpatient stay for IVF for management of NINI in the setting of rhabdomyolysis, specialist evaluation Quality Stroke Does the patient have a stroke diagnosis?: No VTE Prior VTE?: No VTE Risk Level:: Medical - moderate - high VTE Device Contraindication: Treatment Not Indicated VTE Drug Contraindication: N/A - Med Ordered
--- NOTE | 2023-05-10 15:04 | PM.NEUROCN ---
History of Present Illness Data of Consult Service Date: 05/10/23 Primary Care Provider: Unknown Physician HPI Reason for consult: Leg weakness 52 years old man who came to hospital with complain of weakness primarily in legs. He also carried diagnosis of seizure disorder. When I saw him, he stated that his legs were fine and he was feeling 100% better. He said that this was due to swelling around his castillo. There was no complaint of bowel bladder loss of control or any significant back pain or paresthesias. Review of Systems Review of Systems: No recent trauma. [facility] Past Medical History Medical History Alcohol use disorder Opioid use disorder Seizure disorder Social History Social History Household Members: Other Housing: Apartment Do you presently have visiting nurse or other home services: No Patient Tobacco Use Status: Current someday Tobacco user Tobacco use type: Cigarette Cigarettes Per Day: 6 service: No Meds Allergies Allergy/AdvReac Type Severity Reaction Status Date / Time banana [BANANA] Allergy Unknown VOMITING/HI Verified 05/05/23 18:01 VES tomato [TOMATO] Allergy Unknown HIVES, Verified 05/05/23 18:01 SWOLLEN THROAT Active Medications: Current Medications Acetaminophen (Acetaminophen 325 Mg Tablet) 650 mg PO Q6H PRN PRN Reason: Pain, Mild (Pain Scale 1-3) Albuterol/Ipratropium (Albuterol/Iprat 2.5/0.5mg 3 Ml Ampul.Neb) 3 ml INHALE RQ4H WHILE AWAKE PRN PRN Reason: Shortness of Breath/Wheezing Clonidine HCl (Clonidine Hcl 0.1 Mg Tablet) 0.1 mg PO BID PRN; Protocol PRN Reason: Anxiety Enoxaparin Sodium (Enoxaparin Sodium 30 Mg/0.3 Ml Syringe) 30 mg SUBCUT Q24H [facility] Last Admin: 05/09/23 20:27 Dose: 30 mg Gabapentin (Gabapentin 300 Mg Capsule) 300 mg PO BID [facility] Last Admin: 05/10/23 08:28 Dose: 300 mg Guaifenesin/Dextromethorphan (Guaifenesin Dm 200/20/10 Ml 10 Ml Syrup) 10 ml PO Q6H PRN PRN Reason: Cough Last Admin: 05/10/23 10:53 Dose: 10 ml Sodium Chloride (Ns) 1,000 mls @ 150 mls/hr IVCONT .Q6H40M [facility] Last Infusion: 05/10/23 14:26 Dose: 150 mls/hr Levetiracetam (Levetiracetam 1,000 Mg Tablet) 1,000 mg PO BID [facility] Last Admin: 05/10/23 08:29 Dose: 1,000 mg Melatonin (Melatonin 3 Mg Tablet) 6 mg PO BEDTIME PRN PRN Reason: Insomnia Methadone HCl (Methadone Hcl 20 Mg/2 Ml Oral.Conc) 65 mg PO DAILY [facility] Last Admin: 05/10/23 08:29 Dose: 65 mg Nicotine (Nicotine 14 Mg Patch.Td24) 14 mg TRANSDERMA DAILY [facility] Last Admin: 05/10/23 10:45 Dose: 14 mg Ondansetron HCl (Ondansetron Hcl 4 Mg/2 Ml Vial) 4 mg IVPUSH Q8H PRN PRN Reason: Nausea and Vomiting Sodium Chloride (0.9 % Sodium Chloride Flush 3 Ml Syringe) 3 ml IVFLUSH QSHIFT [facility] Last Admin: 05/10/23 09:07 Dose: Not Given Home Medications Medication Instructions Recorded Confirmed Last Taken Type gabapentin 300 mg capsule 300 mg PO BID 05/06/23 05/09/23 Unknown History levetiracetam 500 mg tablet 1,000 mg PO BID 05/06/23 05/09/23 Unknown History clonidine HCl 0.1 mg tablet 0.1 mg PO BID PRN Anxiety 05/09/23 05/09/23 Unknown History methadone 10 mg/mL oral 65 mg PO DAILY 05/09/23 05/09/23 05/09/23 07:59 History concentrate (Methadose) Physical Exam Vital Signs: Vital Signs: Last Vital Signs Temp 97.5 F 05/10/23 07:33 Pulse 68 05/10/23 07:33 Resp 20 05/10/23 07:33 BP 95/57 L 05/10/23 07:33 Pulse Ox 94 05/10/23 07:33 O2 Del Method Room Air 05/10/23 07:33 BMI result Body Mass Index 32.6 Neuro: Other: He is alert and awake with normal spontaneity of speech fluency comprehension and affect. Deep tendon reflexes are absent. Cellulitis type of findings are noted on his left castillo. Plantars are flexor. He is quickly able to get up without any difficulty or weakness in his legs. Results Labs 05/10/23 05:19 05/10/23 05:19 Labs: Short CBC 05/09/23 05/10/23 Range/Units 17:54 05:19 WBC 6.6 5.6 (4.8-10.8) X10*3/uL Hgb 10.5 L 10.2 L (14.0-18.0) g/dl Hct 30.5 L 29.2 L (42.0-52.0) % Plt Count 263 TNP (160-400) X10*3/uL BMP 05/09/23 05/10/23 17:54 05:19 Sodium 135 138 Potassium 3.8 4.3 Chloride 95 L 107 Carbon Dioxide 27 21 L BUN 59 H 43 H Creatinine 5.42 H* 2.87 H Calcium 9.3 8.9 Cardiac Enzymes 05/09/23 05/10/23 Range/Units 17:54 05:19 Total Creatine Kinase 93439 H 8716 H (38-174) U/L Liver Function 05/09/23 Range/Units 17:54 Total Bilirubin 0.2 (0.0-1.0) mg/dL AST 126 H (5-37) U/L ALT 35 (0-40) U/L Alkaline Phosphatase 113 (39-117) U/L Albumin 3.7 (3.5-5.0) g/dL Urine 05/09/23 05/10/23 Range/Units 19:08 04:00 Urine Color Yellow Yellow Urine Appearance Cloudy Clear Urine pH 5.5 5.5 (5.0-9.0) Ur Specific [place] 1.020 1.015 (1.005-1.025) Urine Protein 100 (2+) H 30 (1+) H (Neg-Trace) mg/dL Urine Glucose (UA) 250 H 500 H (Negative) mg/dL Noncontrast head CT did not reveal any significant abnormality. Assessment and Plan (1) Rhabdomyolysis: Qualifiers: Rhabdomyolysis type: non-traumatic Qualified Code(s): M62.82 - Rhabdomyolysis Status: Acute 52 years old man who probably has rhabdomyolysis related leg weakness. Appropriate treatment of muscle disease is recommended with recommendations that he should avoid drug of abuse which directly or indirectly might cause this problem. Procedures Date of Service Date of Service: 05/10/23
[2023-05-10 15:12] VITALS: BP 117/76; PULSE 67; RESP 19; TEMP 36.1; O2SAT 95
--- NOTE | 2023-05-10 15:53 | MHC.CM.PN ---
per rounds pt not ready for dc plan remains home no servies
[2023-05-10 19:14] VITALS: BP 128/88; PULSE 77; RESP 18; TEMP 36.6; O2SAT 96
[2023-05-10] MEDS: Enoxaparin Sodium 30 MG/0.3 ML SYRINGE SUBCUT (19:24)
[2023-05-10] MEDS: 0.9 % Sodium Chloride Flush 3 ML SYRINGE IVFLUSH (19:24)
[2023-05-10] MEDS: Melatonin 3 MG TABLET 6 MG PO (21:23)
[2023-05-10] MEDS: cloNIDine HCL 0.1 MG TABLET PO (21:23)
[2023-05-10 23:17] VITALS: BP 108/66; PULSE 70; RESP 14; TEMP 36; O2SAT 96
[2023-05-11] MEDS: 0.9 % Sodium Chloride 1,000 ML 150 ML IVCONT (02:01)
[2023-05-11 08:00] VITALS: BP 107/71; PULSE 72; RESP 16; TEMP 36.2; O2SAT 93
[2023-05-11] MEDS: Nicotine 14 MG PATCH.TD24 TRANSDERMA (08:51)
[2023-05-11] MEDS: Gabapentin 300 MG CAPSULE PO (08:51)
[2023-05-11] MEDS: levETIRAcetam 1,000 MG TABLET 1000 MG PO (08:51)
[2023-05-11] MEDS: methADONE HCl 20 MG/2 ML ORAL.CONC 65 MG PO (08:51)
[2023-05-11] MEDS: 0.9 % Sodium Chloride Flush 3 ML SYRINGE IVFLUSH (08:52)
[2023-05-11 10:24] LABS: Anion Gap 13 (12-20); Blood Urea Nitrogen 22 mg/dL (9-16); Carbon Dioxide 21 mmol/L (22-29); Chloride 108 mmol/L (96-108); Creatinine Clr Calc Pharmacy 79.3; Estimated Glomerular Filt Rate 58; Glucose Random 162 mg/dL (60-115); Potassium 4.2 mmol/L (3.3-5.1); Sodium 138 mmol/L (135-145)
--- NOTE | 2023-05-11 10:53 | PM.DS ---
DS: Providers Provider Date of Service: 05/11/23 Date of admission: 05/09/23 19:28 Primary care physician: Unknown Physician Consults: 05/09/23 19:29 Consult to Neurology Routine Consulting Provider: [facility] Reason for consultation: seizure 05/09/23 19:33 Addiction Medicine Routine Consulting Provider: Addiction [facility] Reason for consultation: substance use disorder 05/09/23 22:21 Consult to Wound Care Routine Reason for consultation: left lower leg small scabbed wound with pus coming around when pressed. DS: Diagnosis Discharge Diagnosis (1) Rhabdomyolysis: Status: Acute DS: Summary Hospital Course Hospital Course: History and physical as per admitting provider. Pt is a 52-year-old male with a PMH significant for?seizure disorder, polysubstance use disorder, IVDU, and alcohol use disorder who presents to the ED with?moments of confusion and generalized weakness, especially in lower body. Patient was recently admitted to the hospital on 05/05/2023 from the mental status likely in the setting of drug use, as well as breakthrough seizures. Patient had CT of head that showed mild asymmetric hypoattenuation of the left occipital cortex possibly indicative of acute stroke. Patient was seen by Neurology who recommended MRI, but patient refused. Patient also had witnessed seizures in both the ED and while inpatient. On 05/07/2023 patient left AMA. Since then patient states that he has been experiencing moments of confusion and ?collapsing?. Says he feels like ?someone else is in control of my body?. Reports that he can move his arms, but is unable to properly move his lower extremities. Patient lives in a custodial and states sometimes he has to have his roommate and brother pick him up and put him into the bed. Denies any substance use since discharge. Denies any seizure activity since discharge, and indicates he has been taking his medications as prescribed. However, upon further questioning patient points out that he ?pretty much stays on top of? his antiseizure medication. Reports taking his meds approximately 10 days out of 14, though he admits some of those days he takes his medications he only takes them one, not two, times per day. It is also unclear if pt's moments of confusion the past few days are indicative of postictal state. Patient states he now realizes that he made a ?mistake? in leaving the hospital early. Patient admits to having chills and dark colored urine that lightens as he continues to urinate. Denies chest pain/pressure, palpitations. In the ED pt initially with soft BP as low as 93/52, otherwise vitals WNL. Labs were significant for BUN 59, creatinine 5.42, CPK 13,228. Tox screen positive for fentanyl and benzos. Tox screen positive for fentanyl and benzos. CT?of head showed no acute intracranial abnormality, though did show left occipital scalp swelling. Pt was treated with IVF. Pt will be admitted to the hospital for treatment and further evaluation of NINI in the setting of rhabdomyolysis. 52-year-old man admitted with rhabdomyolysis, acute kidney injury after having a seizure. Patient reports non adherence to seizure medications. He was started on Keppra while inpatient with no noted seizures. He was noted to have rhabdomyolysis on admission, CPK trended down with IV fluids. Initial 2 creatinine was 5.42 and trended down to 1.3 with IV fluids. He was seen evaluated by Neurology who thought rhabdomyolysis may be related to leg weakness. Recommendations to avoid drug abuse. MRI negative for any acute abnormality. Plan is to discharge patient home. He should remain compliant with his medications, drink plenty of fluids and avoid drugs. History of polysubstance abuse. Continue methadone Tobacco dependence. Smoking cessation was advised Chronic normocytic anemia. No blood transfusion during hospitalization Time Attestation Discharge coordination time: Greater than 30 minutes Quality: Safe Use of Opioids Does Pt have an Active Cancer Diagnosis on the Problem List?: No Quality: Stroke Does the patient have a stroke diagnosis?: No Physical Exam Vital Signs: Vital Signs: Last Vital Signs Temp 97.2 F 05/11/23 08:00 Pulse 72 05/11/23 08:00 Resp 16 05/11/23 08:00 BP 107/71 05/11/23 08:00 Pulse Ox 93 05/11/23 08:00 O2 Del Method Room Air 05/11/23 08:00 BMI result Body Mass Index 32.6 Appearing in no acute distress head is normocephalic atraumatic eyes pupils are PERRLA sclera is anicteric mouth throat mucous membranes are intact and moist neck is supple no lymphadenopathy, no JVD noted lung sounds are clear to auscultation heart regular rate rhythm, clear S1, S2 positive bowel sounds, abdomen is soft, nontender neuro patient is alert x3, no focal deficits DS: Data Data Completed and Pending Completed studies during hospitalization [Text1]: Procedures Insertion of Infusion Device into Left Brachial Vein, Percutaneous Approach (05/05/23) Labs on day of discharge: Laboratory Results - last 24 hr 05/11/23 09:42 Sodium 138 Potassium 4.2 Chloride 108 Carbon Dioxide 21 L Anion Gap 13 BUN 22 H Creatinine 1.30 Estim Creat Clear Calc 79.3 Estimated GFR 58 Random Glucose 162 H Calcium 9.0 Total Creatine Kinase 3194 H Preliminary micro results at discharge 05/09/23 17:55 Blood Culture - Preliminary Blood - Venous No growth after 24 hours. 05/09/23 17:55 Blood Culture - Preliminary Blood - Venous No growth after 24 hours. Discharge Plan Discharge Anticipated Discharge Date/Time: 05/11/23 10:50 Patient Disposition: Home, Self-Care Discharge Diagnosis: Rhabdomyolysis Acute kidney injury Breakthrough seizure Discharge Medications: Continued clonidine HCl 0.1 mg tablet 0.1 mg PO BID PRN (Reason: Anxiety) methadone [Methadose] 10 mg/mL Concentrate 65 mg PO DAILY levetiracetam 500 mg tablet 1,000 mg PO BID gabapentin 300 mg capsule 300 mg PO BID Discharge Orders: Discharge Order (Routine); Ordered 05/11/23 Ordered By: Ann-Marie Harman Diet: Advance to usual diet Activity on Discharge: As tolerated Stand Alone Forms: Patient Portal Discharge page Care Plan Goals: Take all medications as prescribed especially seizure medications to avoid breakthrough seizures Drink plenty of fluids Avoid drug abuse Health Concerns: Rhabdomyolysis Acute kidney injury Breakthrough seizure Plan of Treatment: Follow-up with primary care provider as needed Assessment: See discharge summary
--- NOTE | 2023-05-11 11:43 | MHC.CM.PN ---
PT CLEARED TO DC TODAY HE CONFIRMS HE WILL RETURN TO [facility], HE REQUESTS TRANSPORT BE ARRANGED HE WILL DC [place] [address] [place] [address] PER HIS REQUEST TRANSPORT ARRANGED VIA [facility]
--- NOTE | 2023-05-11 14:30 | MHC.RECOVRN ---
Chart reviewed after consult placed to Addiction Medicine for STEPHEN. Pt currently receiving methadone, 65 mg daily. Pt dc prior to consult being completed.
== END 2023-05-11 11:34 | disposition home or self-care (01) | DRG 351 ==
LOC: HO.ED 17:24 → HO.EDOVER 19:32 → HO.S3 20:23
PROVIDERS: Physician Assistant Medical; Admitting Provider Student in an Organized Health Care Education/Training Program; Emergency Provider Internal Medicine; Visit Provider Nurse Practitioner Acute Care
DX: M62.82 Rhabdomyolysis (principal); N17.9 Acute kidney failure, unspecified; F11.20 Opioid dependence, uncomplicated; F10.91 Alcohol use, unspecified, in remission; G40.909 Epilepsy, unspecified, not intractable, without status epilepticus; D64.9 Anemia, unspecified; F19.10 Other psychoactive substance abuse, uncomplicated; F17.210 Nicotine dependence, cigarettes, uncomplicated; Z91.148 Patient's other noncompliance with medication regimen for other reason; Z71.6 Tobacco abuse counseling; Z79.899 Other long term (current) drug therapy
CPT/HCPCS: 36415; 70450; 70551; 80048; 80053; 80307; 81001; 81003; 82550; 82570; 83605; 83735; 84300; 85025; 87040; 95816; 99285; J1650; J1953

== ENCOUNTER → 2023-05-09 19:28 | Outpatient (BNV) | payer MEDICAID, SELFPAY | PROVIDERS: Admitting Provider Student in an Organized Health Care Education/Training Program; Emergency Provider Internal Medicine; Visit Provider Psychiatry & Neurology Neurology | DX: M62.82 Rhabdomyolysis (principal) | CPT/HCPCS: 99222 ==

== ENCOUNTER → 2023-05-09 19:28 | Outpatient (BNV) | payer MEDICAID, SELFPAY | PROVIDERS: Admitting Provider Student in an Organized Health Care Education/Training Program; Emergency Provider Internal Medicine; Visit Provider Student in an Organized Health Care Education/Training Program | DX: M62.82 Rhabdomyolysis (principal) | CPT/HCPCS: 99223; 99233; 99239 ==

== ENCOUNTER 2023-06-21 19:20 | Emergency (ER) | payer MEDICAID, SELFPAY ==
--- NOTE | ~2023-06-21 | XR_ITS ---
EXAMINATION: X-RAY RIGHT SHOULDER AND RIGHT HUMERUS CLINICAL INDICATION: Pain, evaluate for fracture/dislocation. COMPARISON: No similar priors. TECHNIQUE: 3 views of the right shoulder and 2 views of the right humerus. FINDINGS: Very subtle calcific/ossific densities adjacent to the greater trochanter of the right humerus suspicious for tendinosis. No evidence of fractures or subluxation. Mild multifocal degenerative osteoarthritis. Linear-shaped thin radiopaque foreign body measuring 1.7 cm in length overlying the medial soft tissues of the distal arm. XR/XR shoulder RT min 2V IMPRESSION: 1. Subtle calcific tendinosis adjacent to the greater tuberosity of the right humerus. 2. No fractures or subluxation. 3. Mild degenerative changes. 4. Linear very thin radiopaque foreign body projecting over the medial soft tissues of the distal right arm, recommend correlation with physical examination and clinical history.
--- NOTE | ~2023-06-21 | XR_ITS ---
EXAMINATION: X-RAY RIGHT SHOULDER AND RIGHT HUMERUS CLINICAL INDICATION: Pain, evaluate for fracture/dislocation. COMPARISON: No similar priors. TECHNIQUE: 3 views of the right shoulder and 2 views of the right humerus. FINDINGS: Very subtle calcific/ossific densities adjacent to the greater trochanter of the right humerus suspicious for tendinosis. No evidence of fractures or subluxation. Mild multifocal degenerative osteoarthritis. Linear-shaped thin radiopaque foreign body measuring 1.7 cm in length overlying the medial soft tissues of the distal arm. XR/XR humerus RT IMPRESSION: 1. Subtle calcific tendinosis adjacent to the greater tuberosity of the right humerus. 2. No fractures or subluxation. 3. Mild degenerative changes. 4. Linear very thin radiopaque foreign body projecting over the medial soft tissues of the distal right arm, recommend correlation with physical examination and clinical history.
[2023-06-21 19:37] VITALS: BP 125/87; PULSE 80; O2SAT 97
--- NOTE | 2023-06-21 19:43 | ED.GENADULT ---
HPI - General Adult General Chief complaint: Extremity Injury, Upper Stated complaint: possible dislocated shoulder Time Seen by Provider: 06/21/23 22:32 Source: patient Mode of arrival: ambulatory Limitations: no limitations History of Present Illness HPI narrative: Patient's history of seizures apparently had a seizure 2 weeks ago was admitted [facility] since then complaining of pain in the right shoulder area painful to lift his right arm patient does have history of necrotizing fasciitis on the right arm and says that prior to this episode patient was able to move his right upper extremity freely patient had x-ray done prior to my evaluation which shows normal alignment of the right humerus Related Data Home Medications Medication Instructions Recorded Confirmed gabapentin 300 mg capsule 300 mg PO BID 05/06/23 05/09/23 levetiracetam 500 mg tablet 1,000 mg PO BID 05/06/23 05/09/23 clonidine HCl 0.1 mg tablet 0.1 mg PO BID PRN Anxiety 05/09/23 05/09/23 methadone 10 mg/mL oral 65 mg PO DAILY 05/09/23 05/09/23 concentrate (Methadose) Previous Rx's Medication Instructions Recorded ketorolac 10 mg tablet 10 mg PO Q8H PRN pain 5 days #14 06/21/23 tabs Allergies Allergy/AdvReac Type Severity Reaction Status Date / Time banana [BANANA] Allergy Unknown VOMITING/HI Verified 06/21/23 19:45 VES tomato [TOMATO] Allergy Unknown HIVES, Verified 06/21/23 19:45 SWOLLEN THROAT Review of Systems Review of Systems: Yes all other systems are reviewed and are negative PMFSH Past Medical History Medical History Seizure Alcohol use disorder Opioid use disorder Seizure disorder Social History Social History Household Members: Other Housing: Apartment Do you presently have visiting nurse or other home services: No Patient Tobacco Use Status: Current someday Tobacco user Tobacco use type: Cigarette Cigarettes Per Day: 6 Smoked in Last 30 Days: No Use of substances other than those prescribed or required for medical reasons: No Substance Use Type: Former Substance User Advance Directives: No Advance Directives Information Provided: No service: No Physical Exam ED Vital Signs: Vital Signs - 24 hr 06/21/23 19:45 06/21/23 23:17 Temperature 98.3 F 98.0 F Pulse Rate 66 60 Respiratory Rate 16 17 Blood Pressure 119/76 126/78 Pulse Oximetry 96 97 Oxygen Delivery Method Room Air BMI result Body Mass Index 31.6 Extrem Shoulder/upper arm images: 1. Diffuse tenderness in right shoulder area increases on adduction 2. Diffuse tenderness no deformity neurovascular intact Painful to abduct right arm or internal rotation Course Course Course Narrative: This is an RME: Additional HPI, ROS, PE not included below will be deferred to primary provider. Patient is a 52-year-old male who presents emergency department via EMS. He Reports a seizure, with a fall looking landing on the right arm. Went to [facility], felt as though he was treated poorly there. His doctor's office had been trying to contact him as there is concern based on imaging that his right arm may be broken, and that his shoulder is dislocated. Patient reports that it keeps going in and out of socket. Using Tylenol and ibuprofen with only minimal improvement. Reports he has no sensation to his hand except for the pinky finger. He reports that he took 2 tramadol prior to arrival, these not prescribed him, but it did help with his pain. Reports a history of necrotizing fasciitis to this arm in the past. Plan: XR imaging Medications Administered Discontinued Medications Generic Name Dose Route Start Last Admin Trade Name Freq PRN Reason Stop Dose Admin Ketorolac Tromethamine 60 mg 06/21/23 23:04 06/21/23 23:10 Ketorolac Tromethamine 60 Mg/2 Ml Vial IM 06/21/23 23:05 Not Given ONCE ONE Medical Decision Making Medical Decision Making [facility] Narrative: Patient clinically with right rotator cuff tendinitis after patient had a seizure or 2 weeks ago give sling patient is on methadone at home will prescribe him Toradol for the pain Differential Diagnosis Differential Diagnoses: The differential diagnosis associated with the presentation includes Shoulder dislocation/fracture of the humerus/rotator cuff tendinitis Independent Interpretation I performed an independent interpretation of an: Plain X-Ray Radiology Impression Discussion of test interpretation with radiology: I have reviewed the radiologist's reading. Discharge Plan Discharge Clinical Impression: Right rotator cuff tendinitis Patient Disposition: Home, Self-Care Instructions: Rotator Cuff Tendinitis (ED) Additional Instructions: Wear the sling for support Follow up with Orthopedics for further evaluation Pain medication as prescribed Prescriptions: New ketorolac 10 mg tablet 10 mg PO Q8H PRN (Reason: pain) 5 Days Qty: 14 0RF No Action clonidine HCl 0.1 mg tablet 0.1 mg PO BID PRN (Reason: Anxiety) methadone [Methadose] 10 mg/mL Concentrate 65 mg PO DAILY levetiracetam 500 mg tablet 1,000 mg PO BID gabapentin 300 mg capsule 300 mg PO BID Referrals: Elia Rogel MD [Physician] - 2 weeks Interventions: ED Discharge Assessment Last Done: 06/21/23 23:17 Discharge Date/Time: 06/21/23 23:17
[2023-06-21 19:45] VITALS: BP 119/76; PULSE 66; RESP 16; TEMP 36.8; O2SAT 96; BMI 31.6
--- NOTE | 2023-06-21 23:16 | PC.NURSE ---
pt refused pain medication upon discharge, reports he does not need it.
[2023-06-21 23:17] VITALS: BP 126/78; PULSE 60; RESP 17; TEMP 36.7; O2SAT 97
== END 2023-06-21 23:17 | disposition home or self-care (01) ==
PROVIDERS: Emergency Provider Internal Medicine; PCP Family Medicine
DX: M75.31 Calcific tendinitis of right shoulder (principal); M25.511 Pain in right shoulder; R56.9 Unspecified convulsions; M72.6 Necrotizing fasciitis
CPT/HCPCS: 73030; 73060; 99283; 99284

== ENCOUNTER 2023-07-23 16:48 | Inpatient (IN) | payer MEDICAID, SELFPAY ==
--- NOTE | ~2023-07-23 | CT_ITS ---
EXAMINATION: CT FEMUR WITH CONTRAST, RIGHT CLINICAL INFORMATION: Erythema, warmth, swelling COMPARISON: None available. TECHNIQUE: 85 mL Omnipaque 350 intravenous contrast was utilized. Multidetector helical imaging was performed through the right femur. Coronal and sagittal reformatted images were created. This CT examination was performed using dose optimization techniques as appropriate, variously including the following: *Automated exposure control *Adjustment of mA and/or kV according to patient size (this includes techniques or standardized protocols for targeted exams where dose is matched to indication/reason for exam; i.e. extremities or head) *Use of iterative reconstruction technique DLP: 365 mGy-cm FINDINGS: Alignment at the hip and knee is anatomic. There is mild degenerative change with joint space narrowing at the hip. Moderate joint space narrowing of the medial compartment of the knee along with osteophytosis. Mild lateral compartment spurring. No acute fracture is seen. Small knee joint effusion. Patellar spurring at the insertion of the quadriceps tendon. A few enlarged right external iliac lymph nodes are present measuring up to 1.3 cm short axis dimension. There are also enlarged right inguinal lymph nodes measuring up to 1.6 cm in short axis dimension. Vasculature appears patent. There is skin thickening and subcutaneous edema of the anterior and medial thigh suspicious for cellulitis. There is cutaneous irregularity along the thickened skin of the anteromedial thigh, which could reflect ulcerations. No discrete abscess identified. CT/CT femur RT w IV con IMPRESSION: 1. Skin thickening and subcutaneous edema of the anterior and medial thigh suspicious for cellulitis. Associated cutaneous defects in the anteromedial thigh could reflect ulcerations. Correlation with physical exam is recommended. 2. Enlarged right external iliac and inguinal lymph nodes, which may be reactive. Imaging follow-up could be performed to assess for resolution. 3. Small knee joint effusion.
--- NOTE | 2023-07-23 17:24 | ED_ITS ---
HPI - Wound/Laceration General Chief Complaint: Skin/Abscess/Foreign Body Stated Complaint: infection inner right thigh? Time Seen by Provider: 07/24/23 00:09 Source: patient Mode of arrival: ambulatory Limitations: no limitations History of Present Illness HPI narrative: 52-year-old male with a history of borderline diabetes mellitus, traumatic brain injury, seizure disorder, injection drug use/heroin, fentanyl, necrotizing fasciitis who presents emergency department for evaluation of right thigh infection. Patient states that he does inject drugs into his right thigh. He believes that he does get into a vein every time he injects himself and does not ?skin pop ?. He states injects into both of his lower extremities and does not injected into his arms anymore. He states he last use fentanyl intranasally 4 days prior. He is in a methadone program. He states that he had an infection of his right thigh proximally 1-1/2 months prior and took a 10 day course of Bactrim with improvement of the infection. He states however 2 days after he completed the antibiotics the infection came back in his not got progressively worse. He states that he has been been changing dressings daily on his right thigh but the drainage has gotten worse and is now foul smelling. He states that his right thigh is swollen and red compared to the left. He states that both lower extremities are swollen and this is chronic. He had a fever as high as 102.9 degrees F, he had associated weakness, nausea and vomiting. Patient also states that over the last 2 weeks he has had intermittent bloody and dark stools which is new for him. Related Data Home Medications ?Medication ?Instructions ?Recorded ?Confirmed methadone 10 mg/mL oral 65 mg PO DAILY 05/09/23 07/24/23 concentrate (Methadose) gabapentin 300 mg capsule 300 mg PO BID 07/24/23 07/24/23 levetiracetam 500 mg tablet 1,000 mg PO BID 07/24/23 07/24/23 olanzapine 5 mg tablet 5 mg PO BEDTIME 07/24/23 07/24/23 Allergies Allergy/AdvReac Type Severity Reaction Status Date / Time banana [BANANA] Allergy Unknown VOMITING/HI Verified 07/23/23 17:36 VES tomato [TOMATO] Allergy Unknown HIVES, Verified 07/23/23 17:36 SWOLLEN THROAT Review of Systems 2 Review of Systems: Yes all other systems are reviewed and are negative [facility] Past Medical History [facility] Narrative: Social history: He does smoke cigarettes. He denies alcohol use. He continues to use heroin and fentanyl. He is in a methadone program. Medical History (Updated 07/24/23 @ 17:05 by Swathi Perez RN) Seizure Alcohol use disorder Opioid use disorder Seizure disorder Social History Social History Household Members: Other Household Members Other:: friend Housing: Apartment Do you presently have visiting nurse or other home services: No Alcohol intake: former Patient Tobacco Use Status: Current everyday Tobacco user Tobacco use type: Cigarette Cigarettes Per Day: 4 Second Hand Smoke Exposure: No Substance Use Type: Heroin Advance Directives Date on File: 07/24/23 service: No Physical Exam 2 Vital Signs: Vital Signs: Last Vital Signs Temp 97.6 F 07/25/23 08:00 Pulse 68 07/25/23 08:00 Resp 18 07/25/23 08:00 BP 132/77 07/25/23 08:00 Pulse Ox 96 07/25/23 08:00 O2 Del Method Room Air 07/25/23 08:00 BMI result Body Mass Index 30.8 Vital signs were normal Exam: General: Awake, alert in no distress Head: Normocephalic, atraumatic EENT: PERRL, Lids normal, sclera normal, conjunctiva normal, nose normal , ears normal, throat without erythema or exudates Neck: Supple, no adenopathy Lung: breath sounds symmetric, no wheezing, rales or rhonchi Chest: symmetric movement, nontender Heart: regular rate and rhythm, normal S1, S2 no murmurs or rubs Abdomen: soft, non-tender, nondistended, normal bowel sounds Rectal: No external hemorrhoids noted, no masses felt on digital exam, stool was brown and Hemoccult negative Back: no vertebral tenderness, no CVAT Extremities: Both lower extremities are swollen from the feet to the hip, patient's right thigh has multiple necrotic areas of skin of different shapes and sizes with surrounding erythema and foul-smelling discharge with surrounding erythema that is warm to the touch. He also has erythema of the pretibial area. Neuro: Awake, alert, oriented, normal speech, cranial nerves intact, moves all extremities symmetrically Psych: Pleasant, cooperative Course Course Course Narrative: This is a rapid medical exam completed by Shyam STEWARTN: Additional HPI, ROS, PE not included below will be deferred to primary provider. Infection right inner leg. Reports multiple lesions on the right inner thigh. Has been seen by his PCP for the same issue and started on antibiotics. Reports the infection was healing when he was on the antibiotics but that since stopping them the infection has gotten worse. States hx of IVDU with last use 4 days ago. States he is currently on methadone with last dose today. Reports history of ETOH abuse with last drink 7 months ago. Medications Administered Discontinued Medications Generic Name Dose Route Start Last Admin Trade Name Freq PRN Reason Stop Dose Admin Gabapentin 300 mg 07/24/23 09:00 07/25/23 08:29 Gabapentin 300 Mg Capsule PO 300 mg BID TANISHA Administration Hydromorphone HCl 1 mg 07/25/23 02:03 07/25/23 02:18 Hydromorphone Hcl 2 Mg Tablet PO 07/25/23 02:04 1 mg ONCE ONE Administration Sodium Chloride 1,000 mls @ 999 mls/hr 07/24/23 00:56 07/24/23 05:07 Ns IV 07/24/23 01:56 Infused .Q1H1M STA Infusion Piperacillin Sod/Tazobactam 100 mls @ 200 mls/hr 07/24/23 00:56 07/24/23 03:24 Sod 4.5 gm/ Sodium Chloride IV 07/24/23 01:25 Infused ONCE ONE Infusion Vancomycin HCl 2,000 mg in 500 mls @ 250 mls/hr 07/24/23 00:56 07/24/23 07:07 Vancomycin/Ns IV 07/24/23 02:55 Infused ONCE ONE Infusion Levetiracetam 1,000 mg in 100 mls @ 400 mls/hr 07/24/23 03:15 07/24/23 04:15 Keppra IV Infused BID TANISHA Infusion Piperacillin Sod/Tazobactam 100 mls @ 200 mls/hr 07/24/23 08:00 07/25/23 09:13 Sod 4.5 gm/ Sodium Chloride IV Infused Q6H TANISHA Infusion Vancomycin HCl 1,250 mg/ 250 mls @ 166.667 mls/hr 07/24/23 17:00 07/25/23 06:07 Sodium Chloride IV Infused Q12H TANISHA Infusion Iohexol 85 ml 07/24/23 04:35 07/24/23 04:35 Iohexol 350 Mg/Ml 100 Ml Infus..Btl IV 07/24/23 04:36 85 ml ONCE ONE Administration Ketorolac Tromethamine 15 mg 07/24/23 00:56 07/24/23 02:30 Ketorolac Tromethamine 15 Mg/Ml Vial IVPUSH 07/24/23 00:57 15 mg ONCE STA Administration Levetiracetam 1,000 mg 07/24/23 09:00 07/25/23 08:29 Levetiracetam 1,000 Mg Tablet PO 1,000 mg BID TANISHA Administration Methadone HCl 65 mg 07/24/23 09:00 07/24/23 09:38 Methadone Hcl 20 Mg/2 Ml Oral.Conc PO 65 mg DAILY TANISHA Administration Methadone HCl 70 mg 07/25/23 09:00 07/25/23 08:30 Methadone Hcl 20 Mg/2 Ml Oral.Conc PO 70 mg DAILY TANISHA Administration Nicotine 21 mg 07/24/23 16:00 07/25/23 08:29 Nicotine 21 Mg Patch.Td24 TRANSDERMA 21 mg DAILY TANISHA Administration Olanzapine 5 mg 07/24/23 21:00 07/24/23 21:14 Olanzapine 5 Mg Tablet PO 5 mg BEDTIME TANISHA Administration Pantoprazole Sodium 40 mg 07/24/23 06:30 07/25/23 06:12 Pantoprazole Sodium 40 Mg/10 Ml Vial IVPUSH 40 mg BID@0630,1630 TANISHA Administration Sodium Chloride 3 ml 07/24/23 08:00 07/25/23 08:29 0.9 % Sodium Chloride Flush 3 Ml Syringe IVFLUSH 3 ml QSHIFT TANISHA Administration Medical Decision Making Medical Decision Making MDM Narrative: 52-year-old male with a history of borderline diabetes mellitus, traumatic brain injury, seizure disorder, injection drug use/heroin, fentanyl, necrotizing fasciitis who presents emergency department for evaluation of right thigh infection, patient does inject drugs into his lower extremities . He states that it infection 1.5 months prior and completed a 10 day course of antibiotics but the infection came back shortly after stopping the antibiotics. He has been changing his dressings daily but he states that the infection is got worse over the past week, had a fever as high as 102.9 degrees F. he has been feeling weak, he has had associated nausea and vomiting. Patient states that he used intranasal heroin/fentanyl 4 days prior. He also states that over the past 2 weeks he has had dark and bright red blood per rectum which is new for him. Vital signs revealed a blood pressure of 129/93 otherwise unremarkable. Patient's right thigh has multiple necrotic skin areas with foul-smelling drainage. There is erythema surrounding the necrotic areas as well as erythema to the pretibial area. Both legs are swollen but the patient states this is chronic and most likely secondary to venous compromise from injection drug use. 01:27 Differential diagnosis: ?Includes but is not limited to cellulitis, skin necrosis secondary to injection drug use, venous insufficiency secondary to injection drug use, lower GI bleed, anemia, electrolyte abnormalities Following evaluation was ordered: CBC, CMP, CRP, ESR, magnesium, CK, lactic acid, PT/INR, PTT, wound culture, blood cultures x2, occult stool test Patient was initially treated with the following: Normal saline x1 L, Zosyn 4.5 g IV, vancomycin 2 g IV, Toradol 15 mg IV Course: :27 My interpretation patient's laboratory evaluation is as follows: WBC was normal 4.8. Normocytic anemia with an H&H of 10.9 and 33.0-this is chronic. CMP revealed an elevated glucose of 116, elevated alk-phos of 125. I did discuss admission over tiger text with the covering hospitalist, Dr. Lawler. Admission/Observation Consideration of admission/observation: Escalation of care including admission/observation considered Consult Healthcare Provider Management of the patient was discussed with: Hospitalist Lab Data MDM Lab Attestation statement: I reviewed the patient's lab results. 07/24/23 04:47 07/25/23 08:01 Labs: Lab Results 07/23/23 07/24/23 07/24/23 Range/Units 18:01 01:36 02:15 WBC 4.8 (4.8-10.8) X10*3/uL RBC 3.92 L (4.60-5.80) X10*6/uL Hgb 10.9 L (14.0-18.0) g/dl Hct 33.0 L (42.0-52.0) % MCV 84.2 (80.0-98.0) fL MCH 27.8 (27.0-33.0) pg MCHC 33.0 (31.0-36.0) g/dl RDW 14.0 (11.0-16.0) % Plt Count 215 (160-400) X10*3/uL MPV 9.0 L (9.4-12.4) fL Immature Gran % (Auto) 0.2 (0.0-0.4) % Neut % (Auto) 55.9 (45-73) % Lymph % (Auto) 32.0 (20-40) % [place] % (Auto) 9.8 (2-11) % Eos % (Auto) 1.7 (0-4) % Baso % (Auto) 0.4 (0-2) % Lymph # (Auto) 1.5 (1.2-4.9) X10*3/uL [place] # (Auto) 0.5 (0.1-1.2) X10*3/uL Eos # (Auto) 0.1 (0.0-0.4) X10*3/uL Baso # (Auto) 0.0 (0.0-0.2) X10*3/uL Abs Immat Gran (auto) 0.01 (0.00-0.03) X10*3/uL Absolute Neuts (auto) 2.7 (2.0-8.3) x10*3/uL Absolute Nucleated RBC 0.000 (0.0-0.012) X10*3/uL Nucleated RBC % (auto) 0.0 (0.0-0.2) /100WBC ESR 91 H (0-15) MM/HR PT 12.1 (11.1-13.3) SEC INR 1.0 (0.9-1.1) APTT 33.6 (26.0-36.8) SEC Sodium 135 (135-145) mmol/L Potassium 4.0 (3.3-5.1) mmol/L Chloride 99 (96-108) mmol/L Carbon Dioxide 25 (22-29) mmol/L Anion Gap 15 (12-20) BUN 17 H (9-16) mg/dL Creatinine 1.05 (0.5-1.4) mg/dL Estim Creat Clear Calc 98.4 Estimated GFR > 60 Random Glucose 116 H (60-115) mg/dL Lactic Acid 1.2 (0.5-2.0) mmol/L Calcium 9.5 (8.4-10.2) mg/dL Magnesium 1.9 (1.6-2.6) mg/dL Total Bilirubin 0.2 (0.0-1.0) mg/dL AST 20 (5-37) U/L ALT 11 (0-40) U/L Alkaline Phosphatase 125 H (39-117) U/L Total Creatine Kinase 97 (38-174) U/L C-Reactive Protein 3.71 H (< or = 0.50) mg/dL Total Protein 8.6 H (6.5-8.0) g/dL Albumin 3.9 (3.5-5.0) g/dL Stool Occult Blood NEGATIVE (NEGATIVE) Chronic Conditions Patient?s care impacted by: Diabetes and Other (opiate use disorder, injection drug use) Critical Care Time Critical Care Time Critical Care Time: Yes Total Critical Care Time: 40 Attestation: Critical Care: The patient was critically ill with a high probability of imminent or life threatening deterioration. I spent greater than 30 minutes of discontinuous time evaluating the patient,delivering critical care at the bedside, discussing and evaluating pertinent data with consultants. Critical care time does not include time spent performing separately billable procedures or teaching. Total time spent performing critical care was 40 minutes. Discharge Plan Discharge Clinical Impression: Cellulitis of right thigh Patient Disposition: Still a Patient Interventions: Admission Worksheet (ED) Last Done: 07/24/23 15:15 Discharge Date/Time: 07/24/23 17:05
[2023-07-23 17:27] VITALS: BP 129/93; PULSE 66; RESP 20; TEMP 36.2; O2SAT 97; BMI 30.8
[2023-07-23 18:08] LABS: MANUAL DIFF FLAG NO
[2023-07-23 18:10] LABS: Basophils Percent Auto 0.4 % (0-2); Eosinophils Absolute Auto 0.1 X10*3/uL (0.0-0.4); Eosinophils Percent Auto 1.7 % (0-4); Hemoglobin 10.9 g/dl (14.0-18.0); Imm Gran Abs Auto 0.01 X10*3/uL (0.00-0.03); Imm Gran Pct Auto 0.2 % (0.0-0.4); Lymphocytes Absolute Auto 1.5 X10*3/uL (1.2-4.9); Mean Corpuscular Hemoglobin 27.8 pg (27.0-33.0); Mean Corpuscular Volume 84.2 fL (80.0-98.0); Monocytes Absolute Auto 0.5 X10*3/uL (0.1-1.2); Monocytes Percent Auto 9.8 % (2-11); Neutrophils Absolute Auto 2.7 x10*3/uL (2.0-8.3); Neutrophils Percent Auto 55.9 % (45-73); Platelet Count 215 X10*3/uL (160-400); Red Blood Count 3.92 X10*6/uL (4.60-5.80); White Blood Count 4.8 X10*3/uL (4.8-10.8)
[2023-07-23 18:24] LABS: Alanine Aminotransferase 11 U/L (0-40); Albumin Level 3.9 g/dL (3.5-5.0); Alkaline Phosphatase 125 U/L (39-117); Anion Gap 15 (12-20); Aspartate Amino Transferase 20 U/L (5-37); Bilirubin Total 0.2 mg/dL (0.0-1.0); Blood Urea Nitrogen 17 mg/dL (9-16); Calcium 9.5 mg/dL (8.4-10.2); Carbon Dioxide 25 mmol/L (22-29); Chloride 99 mmol/L (96-108); Creatinine Clr Calc Pharmacy 98.4; Estimated Glomerular Filt Rate > 60; Glucose Random 116 mg/dL (60-115); Magnesium 1.9 mg/dL (1.6-2.6); Sodium 135 mmol/L (135-145); Total Protein 8.6 g/dL (6.5-8.0)
[2023-07-24] VITALS (8 sets, daily range): BP systolic 103–138; BP diastolic 70–96; PULSE 47–66; RESP 14–18; TEMP 36–36.8; O2SAT 93–97
--- NOTE | 2023-07-24 01:00 | PC.NURSE ---
Pt A&Ox3, reports 7/10 right leg pain, increase with ambulating x 1 month. Pt reports IV drug use x 4 days ago. Unstagable cavity areas, redness, warm to touch, and foul smelling noted to right thigh. Pt medicated per MAR. Pt ambulating independently to with slow steady gait.
[2023-07-24 01:44] LABS: OBS Int Ctl Valid YES; OBS1 NEGATIVE (NEGATIVE)
--- NOTE | 2023-07-24 01:45 | PC.NURSE ---
Pt difficult stick for blood draw/IV insertion, ultrasound guided IV needed, Provider aware.
[2023-07-24] MEDS: 0.9 % Sodium Chloride 1,000 ML 999 ML IV (02:21)
[2023-07-24 02:29] LABS: Prothrombin Time 12.1 SEC (11.1-13.3)
[2023-07-24] MEDS: Ketorolac Tromethamine 15 MG/ML VIAL IVPUSH (02:30)
[2023-07-24] MEDS: Piperacillin Sodium/Tazobactam 4.5 GM in 0.9 % Sodium Chloride 100 ML IV ×4 (02:30→19:33)
[2023-07-24 02:32] LABS: Partial Thromboplastin Time 33.6 SEC (26.0-36.8)
--- NOTE | 2023-07-24 02:33 | P.HPHOSP_ITS ---
History of Present Illness Date of Service: 07/24/23 Chief Complaint: Leg infection This is a 52-year-old male with pertinent history of IV drug use disorder, seizure disorder who presents to the emergency department for evaluation of leg infection. Patient states he has had infection over his right thigh that has been ongoing over the last 1 month. It has been slowly getting worse and is with purulent foul-smelling drainage. Initially about a month and a half ago patient took a 10 day course of Bactrim for the same. He noticed improvement with Bactrim but states that once the antibiotic course was finished the infection returned. He admits to injecting drugs in his right thigh. Patient states he had a temperature of 102 degrees at home. Has associated chills. No chest discomfort, palpitations, shortness of breath, abdominal pain, change in urinary habits. He does endorse that he has been having intermittent bloody stools for the last 2 weeks. In the emergency department, patient was initiated on empiric IV antibiotics Review of Systems 2 Constitutional: Constitutional: Reports chills and Reports fever(s) Cardiovascular: Cardiovascular: Reports no additional cardiovascular complaints Respiratory: Respiratory: Reports no additional respiratory complaints Gastrointestinal: Gastrointestinal: Reports no additional gastrointestinal complaints Genitourinary: Genitourinary: Reports no additional male genitourinary complaints [facility] Medical History Seizure Alcohol use disorder Opioid use disorder Seizure disorder Pertinent family history: No family history of early CAD Social History Household Members: Other Housing: Apartment Do you presently have visiting nurse or other home services: No Patient Tobacco Use Status: Current someday Tobacco user Tobacco use type: Cigarette Cigarettes Per Day: 6 Substance Use Type: Former Substance User Advance Directives: No Advance Directives Information Provided: No Do you have a plan to hurt others: No Plan service: No Meds Allergies Allergy/AdvReac Type Severity Reaction Status Date / Time banana [BANANA] Allergy Unknown VOMITING/HI Verified 07/23/23 17:36 VES tomato [TOMATO] Allergy Unknown HIVES, Verified 07/23/23 17:36 SWOLLEN THROAT Active Medications: Current Medications Vancomycin HCl (Vancomycin/Ns) 2,000 mg in 500 mls @ 250 mls/hr IV ONCE ONE Stop: 05/01/24 02:55 Pharmacy Consult (Consult Rx Vancomycin Dosing) 1 each MISCELLANE DAILY PRN PRN Reason: Consult order Home Medications ?Medication ?Instructions ?Recorded ?Confirmed ?Last Taken ?Type gabapentin 300 mg capsule 300 mg PO BID 05/06/23 05/09/23 Unknown History levetiracetam 500 mg tablet 1,000 mg PO BID 05/06/23 05/09/23 Unknown History clonidine HCl 0.1 mg tablet 0.1 mg PO BID PRN Anxiety 05/09/23 05/09/23 Unknown History methadone 10 mg/mL oral 65 mg PO DAILY 05/09/23 05/09/23 05/09/23 07:59 History concentrate (Methadose) Physical Exam 2 Vital Signs and Narrative: Vital Signs: Last Vital Signs Temp 97.2 F 07/23/23 17:27 Pulse 66 07/23/23 17:27 Resp 20 07/23/23 17:27 BP 129/93 H 07/23/23 17:27 Pulse Ox 97 07/23/23 17:27 O2 Del Method Room Air 07/23/23 17:27 BMI result Body Mass Index 30.8 Middle-aged male lying in bed in no distress Neck supple, no JVD Regular rate and rhythm, S1-S2 heard Regular breath sounds bilaterally, no wheezing or crackles appreciated Abdomen soft nontender, no guarding, no rigidity Patient is awake, alert and oriented to self, place, time and person ; no focal motor deficit Musculoskeletal: Right thigh with necrotic areas of skin with surrounding erythema, foul-smelling purulent discharge, warm to touch (as pictured below) Psych: Normal mood Skin: Other: Results Labs 07/23/23 18:01 07/23/23 18:01 Labs: Laboratory Results - last 24 hr 07/23/23 07/24/23 07/24/23 18:01 01:36 02:15 MCV 84.2 MCH 27.8 MCHC 33.0 RDW 14.0 Plt Count 215 MPV 9.0 L Immature Gran % (Auto) 0.2 Neut % (Auto) 55.9 Lymph % (Auto) 32.0 [place] % (Auto) 9.8 Eos % (Auto) 1.7 Baso % (Auto) 0.4 Lymph # (Auto) 1.5 [place] # (Auto) 0.5 Eos # (Auto) 0.1 Baso # (Auto) 0.0 Abs Immat Gran (auto) 0.01 Absolute Neuts (auto) 2.7 Absolute Nucleated RBC 0.000 Nucleated RBC % (auto) 0.0 PT 12.1 INR 1.0 APTT 33.6 Anion Gap 15 Estim Creat Clear Calc 98.4 Estimated GFR > 60 Random Glucose 116 H Calcium 9.5 Magnesium 1.9 Total Bilirubin 0.2 AST 20 ALT 11 Alkaline Phosphatase 125 H Total Protein 8.6 H Albumin 3.9 Stool Occult Blood NEGATIVE Assessment and Plan (1) Cellulitis of right thigh: Status: Acute Plan This is a 52-year-old male with pertinent history of IV drug use disorder, seizure disorder who presents to the emergency department for evaluation of leg infection. #. Right thigh purulent cellulitis: Will admit patient with empiric IV antibiotics. No sepsis. Obtaining CT scan and consulting general surgery for possible debridement #. Seizure disorder: On Keppra #. Polysubstance use disorder: On methadone. UDS pending. Consulting Addiction Team #. ?Intermittent blood in stool: Patient states it has been ongoing for 2 weeks but hemoglobin is at baseline. Continue to monitor H&H. Initiating Protonix. May need GI consult Med rec pending DVT prophylaxis: Mechanical Full code Admit as inpatient and will require two night minimum hospital stay for IV antibiotics (as above), which is not possible in a lesser acute setting. Quality Stroke Does the patient have a stroke diagnosis?: No VTE Prior VTE?: No VTE Risk Level:: Medical - moderate - high VTE Device Contraindication: N/A - Device Ordered VTE Drug Contraindication: Treatment Not Indicated
[2023-07-24 02:34] LABS: Lactic Acid 1.2 mmol/L (0.5-2.0)
[2023-07-24 02:38] LABS: C Reactive Protein 3.71 mg/dL (< or = 0.50)
[2023-07-24 02:55] LABS: Erythrocyte Sedimentation Rate 91 MM/HR (0-15)
--- NOTE | 2023-07-24 03:22 | PC.NURSE ---
Med rec done, Pt able to verbalize home meds.
[2023-07-24] MEDS: levETIRAcetam in NaCl (iso-os) 1,000 MG/100 ML PIGGYBACK 400 MG IV (03:26)
[2023-07-24] MEDS: iohexoL 350 MG/ML 100 ML INFUS..BTL 85 ML IV (04:35)
[2023-07-24] MEDS: vancomycin/NS 2,000 MG/500 ML PLAST..BAG 250 MG IV (04:46)
[2023-07-24 05:20] LABS: MANUAL DIFF FLAG NO
[2023-07-24 05:23] LABS: Basophils Percent Auto 0.2 % (0-2); Eosinophils Absolute Auto 0.1 X10*3/uL (0.0-0.4); Eosinophils Percent Auto 2.3 % (0-4); Hematocrit 29.7 % (42.0-52.0); Hemoglobin 9.6 g/dl (14.0-18.0); Imm Gran Abs Auto 0.01 X10*3/uL (0.00-0.03); Imm Gran Pct Auto 0.2 % (0.0-0.4); Lymphocytes Absolute Auto 1.8 X10*3/uL (1.2-4.9); Lymphocytes Percent Auto 40.9 % (20-40); Mean Corpuscular HGB Conc 32.3 g/dl (31.0-36.0); Mean Corpuscular Hemoglobin 27.5 pg (27.0-33.0); Mean Corpuscular Volume 85.1 fL (80.0-98.0); Mean Platelet Volume 9.2 fL (9.4-12.4); Monocytes Absolute Auto 0.5 X10*3/uL (0.1-1.2); Monocytes Percent Auto 12.1 % (2-11); Neutrophils Absolute Auto 1.9 x10*3/uL (2.0-8.3); Neutrophils Percent Auto 44.3 % (45-73); Platelet Count 196 X10*3/uL (160-400); Red Blood Count 3.49 X10*6/uL (4.60-5.80); Red Cell Distribution Width 14.1 % (11.0-16.0); White Blood Count 4.3 X10*3/uL (4.8-10.8)
[2023-07-24 05:39] LABS: Anion Gap 13 (12-20); Blood Urea Nitrogen 15 mg/dL (9-16); Calcium 8.7 mg/dL (8.4-10.2); Carbon Dioxide 26 mmol/L (22-29); Chloride 99 mmol/L (96-108); Creatinine Clr Calc Pharmacy 114.8; Estimated Glomerular Filt Rate > 60; Glucose Random 140 mg/dL (60-115); Potassium 3.8 mmol/L (3.3-5.1); Sodium 134 mmol/L (135-145)
[2023-07-24] MEDS: Pantoprazole Sodium 40 MG/10 ML VIAL IVPUSH ×2 (07:07→17:58)
--- NOTE | 2023-07-24 07:10 | PC.NURSE ---
Pt has home meds (keppra, olanzapine and gabapentin) at bedside, and does not want meds set to pharmacy.
--- NOTE | 2023-07-24 08:15 | PHA.PROG ---
Admission Date/Time: July 24, 2023 02:31 Indication: SKIN Weight in k.3 kg Adjusted body weight in Kg: [place] body weight in Kg: Obesity Dosing Indication % IBW: Serum Creatinine - Last 168 Hours 07/23/23 07/24/23 18:01 04:47 Creatinine 1.05 0.90 Estimated CrCl and GFR - Last 168 Hours 07/23/23 07/24/23 18:01 04:47 Estim Creat Clear Calc 98.4 114.8 Estimated GFR > 60 > 60 Vancomycin Loading Dose: 2000 MG Current Vancomycin Dosing Regimen: 1250 MG Q12H Vancomycin Monitoring using AUC goal of 400 - 600 range with trough as surrogate marker: GBL=473 TROUGH=15.7 Date and Time for next Vancomycin Level to be drawn: 07/25/23 @1500 Pharmacist Comments on Vancomycin Plan: Vancomycin dosing will take advantage of [employer] as a clinical decision support tool that uses Bayesian modeling to calculate individual patient's pharmacokinetic parameters and forecast the patient's drug concentration time course with the target goal AUC 24 range of 400 - 600 mg/L/hr.
--- NOTE | 2023-07-24 08:22 | PHA.MEDREC ---
Pharmacy Consult ? Medication Reconciliation Pharmacy has completed the medication reconciliation. Patient was altered and could not verbalize what they were on. Used patients medications that he had on him.
--- NOTE | 2023-07-24 08:23 | HE.PHANOTE ---
RE METHADONE LAST DOSE LETTER FROM [facility] RECEIVED, PATIENT LAST RECEIVED 65 MG ON 07/23/23.
--- NOTE | 2023-07-24 09:04 | P.CONGS_ITS ---
History of Present Illness Consult details Consult date: 07/24/23 Narrative: 52-year-old male patient with history of IV drug use and a prior history of diabetes mellitus, traumatic brain injury, seizure disorder, necrotizing fasciitis presenting to the emergency department with a right thigh crusted wound, swelling and pain. He reports injecting IV drugs into a vein in the right thigh and denies history of skin popping. He was previously treated with p.o. Bactrim with some improvement however after completing the antibiotics, he began to develop increased pain and swelling. Upon presentation to the ED was found to have a fever of 102.9. He is admitted to the hospitalist service for further management, and surgical consultation was requested for possible debridement. Review of Systems 2 Review of Systems: Yes Unobtainable due to mental condition PMFSH Past Medical History Medical History Seizure Alcohol use disorder Opioid use disorder Seizure disorder Social History Social History Household Members: Other Housing: Apartment Do you presently have visiting nurse or other home services: No Alcohol intake: former Patient Tobacco Use Status: Current everyday Tobacco user Tobacco use type: Cigarette Cigarettes Per Day: 6 Smoked in Last 30 Days: Yes Use of substances other than those prescribed or required for medical reasons: Yes Substance Use Type: Heroin Advance Directives: Yes Advance Directives on File: Yes Advance Directives Date on File: 07/24/23 Do you have a plan to hurt others: No Plan Nutrition Risks: No Nutritional Risk service: No Meds Allergies Allergy/AdvReac Type Severity Reaction Status Date / Time banana [BANANA] Allergy Unknown VOMITING/HI Verified 07/23/23 17:36 VES tomato [TOMATO] Allergy Unknown HIVES, Verified 07/23/23 17:36 SWOLLEN THROAT Active Medications: Current Medications Acetaminophen (Acetaminophen 325 Mg Tablet) 650 mg PO Q6H PRN PRN Reason: Pain, Mild (Pain Scale 1-3) Gabapentin (Gabapentin 300 Mg Capsule) 300 mg PO BID TANISHA Piperacillin Sod/Tazobactam (Sod 4.5 gm/ Sodium Chloride) 100 mls @ 200 mls/hr IV Q6H TANISHA Vancomycin HCl 1,250 mg/ (Sodium Chloride) 250 mls @ 166.667 mls/hr IV Q12H TANISHA Levetiracetam (Levetiracetam 1,000 Mg Tablet) 1,000 mg PO BID [facility] Melatonin (Melatonin 3 Mg Tablet) 6 mg PO BEDTIME PRN PRN Reason: Insomnia Methadone HCl (Methadone Hcl 20 Mg/2 Ml Oral.Conc) 65 mg PO DAILY [facility] Olanzapine (Olanzapine 5 Mg Tablet) 5 mg PO BEDTIME [facility] Ondansetron HCl (Ondansetron Hcl 4 Mg/2 Ml Vial) 4 mg IVPUSH Q8H PRN PRN Reason: Nausea and Vomiting Pantoprazole Sodium (Pantoprazole Sodium 40 Mg/10 Ml Vial) 40 mg IVPUSH BID@0630,1630 [facility] Last Admin: 07/24/23 07:07 Dose: 40 mg Pharmacy Consult (Consult Rx Vancomycin Dosing) 1 each MISCELLANE DAILY PRN PRN Reason: Consult order Sodium Chloride (0.9 % Sodium Chloride Flush 3 Ml Syringe) 3 ml IVFLUSH QSHIFT [facility] Home Medications ?Medication ?Instructions ?Recorded ?Confirmed ?Last Taken ?Type methadone 10 mg/mL oral 65 mg PO DAILY 05/09/23 07/24/23 07/23/23 History concentrate (Methadose) gabapentin 300 mg capsule 300 mg PO BID 07/24/23 07/24/23 Unknown History levetiracetam 500 mg tablet 1,000 mg PO BID 07/24/23 07/24/23 Unknown History olanzapine 5 mg tablet 5 mg PO BEDTIME 07/24/23 07/24/23 Unknown History Physical Exam 2 Vital Signs: Vital Signs: Last Vital Signs Temp 97.7 F 07/24/23 05:11 Pulse 47 L 07/24/23 05:45 Resp 18 07/24/23 05:45 BP 111/70 07/24/23 05:45 Pulse Ox 93 07/24/23 05:45 O2 Del Method Room Air 07/24/23 05:45 BMI result Body Mass Index 30.8 Const: Other: Sleepy General: cooperative, no acute distress and patient obtunded Nutritional Appearance: well nourished Orientation/consciousness: patient obtunded L imitations: no limitations HEENT: Head: Yes normocephalic and Yes atraumatic Ears: hearing grossly normal bilaterally Resp: Effort & Inspection: normal respiratory effort, no audible wheezes, no cough and no respiratory distress Cardio: Jugular venous distension: no JVD GI: Inspection: Yes normal to inspection Skin: Other: Warm, dry, no rash Neuro: General: patient obtunded Extrem: Other: Right medial thigh: Multiple crusted lesions along the medial surface consistent with chronic IV drug use, possible skin popping. No obvious abscess. Granulating wounds are dry without significant drainage at this time. General: Yes no clubbing, cyanosis or edema Results Labs 07/24/23 04:47 07/24/23 04:47 Labs: Abnormal lab results 07/23/23 07/24/23 07/24/23 Range/Units 18:01 02:15 04:47 WBC 4.3 L (4.8-10.8) X10*3/uL RBC 3.92 L 3.49 L (4.60-5.80) X10*6/uL Hgb 10.9 L 9.6 L (14.0-18.0) g/dl Hct 33.0 L 29.7 L (42.0-52.0) % MPV 9.0 L 9.2 L (9.4-12.4) fL Neut % (Auto) 44.3 L (45-73) % Lymph % (Auto) 40.9 H (20-40) % [place] % (Auto) 12.1 H (2-11) % Absolute Neuts (auto) 1.9 L (2.0-8.3) x10*3/uL ESR 91 H (0-15) MM/HR Sodium 134 L (135-145) mmol/L BUN 17 H (9-16) mg/dL Random Glucose 116 H 140 H (60-115) mg/dL Alkaline Phosphatase 125 H (39-117) U/L C-Reactive Protein 3.71 H (< or = 0.50) mg/dL Total Protein 8.6 H (6.5-8.0) g/dL Short CBC 07/23/23 07/24/23 Range/Units 18:01 04:47 WBC 4.8 4.3 L (4.8-10.8) X10*3/uL Hgb 10.9 L 9.6 L (14.0-18.0) g/dl Hct 33.0 L 29.7 L (42.0-52.0) % Plt Count 215 196 (160-400) X10*3/uL BMP 07/23/23 07/24/23 18:01 04:47 Sodium 135 134 L Potassium 4.0 3.8 Chloride 99 99 Carbon Dioxide 25 26 BUN 17 H 15 Creatinine 1.05 0.90 Calcium 9.5 8.7 D Cardiac Enzymes 07/24/23 Range/Units 02:15 Total Creatine Kinase 97 (38-174) U/L Liver Function 07/23/23 Range/Units 18:01 Total Bilirubin 0.2 (0.0-1.0) mg/dL AST 20 (5-37) U/L ALT 11 (0-40) U/L Alkaline Phosphatase 125 H (39-117) U/L Albumin 3.9 (3.5-5.0) g/dL All other labs normal. Assessment and Plan (1) Cellulitis of right thigh: Status: Acute Plan 52-year-old male patient with a history of IV drug use presenting with a right thigh area of cellulitis, ulceration suggestive of chronic IV drug use and skin popping. Findings are suggestive of possible Xylazine ulceration. No abscess is identified on CT of right thigh. No debridement is required at this time. Suggest applying topical Bactroban to wound daily. Continue IV antibiotics as well. Procedures Date of Service Date of Service: 07/24/23
[2023-07-24] MEDS: Gabapentin 300 MG CAPSULE PO (09:37)
[2023-07-24] MEDS: levETIRAcetam 1,000 MG TABLET 1000 MG PO ×2 (09:37→19:38)
[2023-07-24] MEDS: methADONE HCl 20 MG/2 ML ORAL.CONC 65 MG PO (09:38)
[2023-07-24] MEDS: 0.9 % Sodium Chloride Flush 3 ML SYRINGE IVFLUSH ×3 (09:40→23:43)
--- NOTE | 2023-07-24 10:59 | PC.NURSE ---
This RN resumed care at 0700, Pt has been in and out of the bathroom, this RN went into room with security to take medications and bring them to pharmacy. Pt in agreement at this time. Pt reported to RN while medicating that i fell off the bed reaching for my ice cream and hit my head on the floor Provider aware, CT order to be placed. Pt has no obvious bruising/bleeding, denies dizziness prior to fall, denies LOC. Pt has been advised to stop getting out of bed.
--- NOTE | 2023-07-24 13:57 | PC.NURSE ---
Pt goes to [facility] case checker: [phone] When pt called case management himself, he is giving false information. She would like updates as the pt is not reliable, along with d/c paperwork due to pt not bringing papers back in the past.
--- NOTE | 2023-07-24 16:10 | PC.NURSE ---
Pt called this RN into bathroom to show staff scabs that he had picked off his leg, 3 baggies noted to also be in the toilet, pt told this RN he found them in his bag. This RN had alerted security to search the rest of his bag before he got brought up to the [facility]. Addiction medicine at bedside during this time. Security came to bed side and search belongings, no other substances found. Pt got escalated with security and wanted to leave A. MD aware, was going to come to bedside but this RN was able to de-escalate that patient, RN got nicotine patch ordered, report is in for patient to be brought upstairs, awaiting transport at this time.
--- NOTE | 2023-07-24 16:28 | PM.EVENT ---
Event Note Date of Service: 07/24/23 Event Note: 52-year-old male with pertinent history of IV drug use disorder, seizure disorder who presents to the emergency department for evaluation of leg infection. physical exam:similar as h&P. ct femur : CT/CT femur RT w IV con IMPRESSION: 1. Skin thickening and subcutaneous edema of the anterior and medial thigh suspicious for cellulitis. Associated cutaneous defects in the anteromedial thigh could reflect ulcerations. Correlation with physical exam is recommended. 2. Enlarged right external iliac and inguinal lymph nodes, which may be reactive. Imaging follow-up could be performed to assess for resolution. plan: Right thigh purulent cellulitis: Will admit patient with empiric IV antibiotics. No sepsis. addiction consult ? use RN into bathroom to show staff scabs that he had picked off his leg, 3 baggies noted to also be in the toilet, pt told this RN he found them in his bag this afternoon, Security came to bed side and search belongings, no other substances found-please see Darien cardoso note for detailed info . nicogermania patch added. Time Spent With Patient Time: Total time managing care of this patient today ____ minutes.
--- NOTE | 2023-07-24 16:43 | HO.ADDICT_ITS ---
History of Present Illness Date of Service: 07/24/23 Chief Complaint: Skin Infection Reason for Consult: OUD Sources of Information: patient interviewed and chart reviewed HPI Narrative: Patient medically admitted with cellulitis of the thigh -thought to be related to opioid use Currently engaged in treatment for OUD and taking methadone 65mg daily Seen in ED room 15 with inside outside sales representative. Patient had just come out of the bathroom where he had showed RN 3 baggies in the tolilet which he reports not using. During interview, patient appeared to be experiencing opioid related effects (eyes rolling back during conversation, eyes closing for extended periods of time). Patient unhappy when asked if used recently. Challenging to get any information from patient as he would go on tangents unrelated to question asked. Did report that he has been on methadone and most recent dose increase was 3 days ago. Reports it has been 5 days since he used any opiates and seven months since he last had any alcohol. chart review shows that patient has been on methadone 65 mg for quite some time. Documentation mentions TBI, unclear how this impacts patient--memory? executive function? Past Psychiatric History: Unclear, apparently he has a past history of substance abuse Review of Systems Constitutional: Reports no additional constitutional complaints Diagnostics Vital Signs (24Hr): Vital Signs - 24 hr 07/23/23 17:27 07/24/23 03:11 07/24/23 05:11 Temperature 97.2 F 98.0 F 97.7 F Pulse Rate 66 66 55 Respiratory Rate 20 18 16 Blood Pressure 129/93 H 103/71 122/71 Pulse Oximetry 97 94 97 Oxygen Delivery Method Room Air Room Air Room Air 07/24/23 05:45 07/24/23 09:51 07/24/23 13:58 Temperature 98.2 F Pulse Rate 47 L 50 58 Respiratory Rate 18 14 16 Blood Pressure 111/70 126/84 118/81 Pulse Oximetry 93 96 95 Oxygen Delivery Method Room Air Room Air Room Air BMI result Body Mass Index 30.8 Labs 07/24/23 04:47 07/24/23 04:47 Labs: Laboratory Results - last 48 hr 07/23/23 07/24/23 07/24/23 18:01 01:36 02:15 WBC 4.8 RBC 3.92 L Hgb 10.9 L Hct 33.0 L MCV 84.2 MCH 27.8 MCHC 33.0 RDW 14.0 Plt Count 215 MPV 9.0 L Immature Gran % (Auto) 0.2 Neut % (Auto) 55.9 Lymph % (Auto) 32.0 [place] % (Auto) 9.8 Eos % (Auto) 1.7 Baso % (Auto) 0.4 Lymph # (Auto) 1.5 [place] # (Auto) 0.5 Eos # (Auto) 0.1 Baso # (Auto) 0.0 Abs Immat Gran (auto) 0.01 Absolute Neuts (auto) 2.7 Absolute Nucleated RBC 0.000 Nucleated RBC % (auto) 0.0 ESR 91 H PT 12.1 INR 1.0 APTT 33.6 Sodium 135 Potassium 4.0 Chloride 99 Carbon Dioxide 25 Anion Gap 15 BUN 17 H Creatinine 1.05 Estim Creat Clear Calc 98.4 Estimated GFR > 60 Random Glucose 116 H Lactic Acid 1.2 Calcium 9.5 Magnesium 1.9 Total Bilirubin 0.2 AST 20 ALT 11 Alkaline Phosphatase 125 H Total Creatine Kinase 97 C-Reactive Protein 3.71 H Total Protein 8.6 H Albumin 3.9 Stool Occult Blood NEGATIVE 07/24/23 04:47 WBC 4.3 L RBC 3.49 L Hgb 9.6 L Hct 29.7 L MCV 85.1 MCH 27.5 MCHC 32.3 RDW 14.1 Plt Count 196 MPV 9.2 L Immature Gran % (Auto) 0.2 Neut % (Auto) 44.3 L Lymph % (Auto) 40.9 H [place] % (Auto) 12.1 H Eos % (Auto) 2.3 Baso % (Auto) 0.2 Lymph # (Auto) 1.8 [place] # (Auto) 0.5 Eos # (Auto) 0.1 Baso # (Auto) 0.0 Abs Immat Gran (auto) 0.01 Absolute Neuts (auto) 1.9 L Absolute Nucleated RBC 0.000 Nucleated RBC % (auto) 0.0 ESR PT INR APTT Sodium 134 L Potassium 3.8 Chloride 99 Carbon Dioxide 26 Anion Gap 13 BUN 15 Creatinine 0.90 Estim Creat Clear Calc 114.8 Estimated GFR > 60 Random Glucose 140 H Lactic Acid Calcium 8.7 D Magnesium Total Bilirubin AST ALT Alkaline Phosphatase Total Creatine Kinase C-Reactive Protein Total Protein Albumin Stool Occult Blood Imaging Radiology Impressions: ITS Impressions Femur CT 07/24/23 04:40 IMPRESSION: 1. Skin thickening and subcutaneous edema of the anterior and medial thigh suspicious for cellulitis. Associated cutaneous defects in the anteromedial thigh could reflect ulcerations. Correlation with physical exam is recommended. 2. Enlarged right external iliac and inguinal lymph nodes, which may be reactive. Imaging follow-up could be performed to assess for resolution. 3. Small knee joint effusion. Mental Status Exam Mental Status Exam Patient Appearance: Appropriate Level of Consciousness: Drowsy Patient Behavior: Talkative Affect Description: Apprehensive Medications Medications Current Medications Acetaminophen (Acetaminophen 325 Mg Tablet) 650 mg PO Q6H PRN PRN Reason: Pain, Mild (Pain Scale 1-3) Gabapentin (Gabapentin 300 Mg Capsule) 300 mg PO BID COUNTS INCLUDE 234 BEDS AT THE [facility] Last Admin: 07/24/23 09:37 Dose: 300 mg Piperacillin Sod/Tazobactam (Sod 4.5 gm/ Sodium Chloride) 100 mls @ 200 mls/hr IV Q6H COUNTS INCLUDE 234 BEDS AT THE [facility] Last Infusion: 07/24/23 14:44 Dose: Infused Vancomycin HCl 1,250 mg/ (Sodium Chloride) 250 mls @ 166.667 mls/hr IV Q12H COUNTS INCLUDE 234 BEDS AT THE [facility] Levetiracetam (Levetiracetam 1,000 Mg Tablet) 1,000 mg PO BID COUNTS INCLUDE 234 BEDS AT THE [facility] Last Admin: 07/24/23 09:37 Dose: 1,000 mg Melatonin (Melatonin 3 Mg Tablet) 6 mg PO BEDTIME PRN PRN Reason: Insomnia Methadone HCl (Methadone Hcl 20 Mg/2 Ml Oral.Conc) 65 mg PO DAILY COUNTS INCLUDE 234 BEDS AT THE [facility] Last Admin: 07/24/23 09:38 Dose: 65 mg Nicotine (Nicotine 21 Mg Patch.Td24) 21 mg TRANSDERMA DAILY COUNTS INCLUDE 234 BEDS AT THE [facility] Olanzapine (Olanzapine 5 Mg Tablet) 5 mg PO BEDTIME COUNTS INCLUDE 234 BEDS AT THE [facility] Ondansetron HCl (Ondansetron Hcl 4 Mg/2 Ml Vial) 4 mg IVPUSH Q8H PRN PRN Reason: Nausea and Vomiting Pantoprazole Sodium (Pantoprazole Sodium 40 Mg/10 Ml Vial) 40 mg IVPUSH BID@0630,1630 COUNTS INCLUDE 234 BEDS AT THE [facility] Last Admin: 07/24/23 07:07 Dose: 40 mg Pharmacy Consult (Consult Rx Vancomycin Dosing) 1 each MISCELLANE DAILY PRN PRN Reason: Consult order Sodium Chloride (0.9 % Sodium Chloride Flush 3 Ml Syringe) 3 ml IVFLUSH QSHIFT COUNTS INCLUDE 234 BEDS AT THE [facility] Last Admin: 05/01/24 09:40 Dose: 3 ml Allergies Allergies Allergy/AdvReac Type Severity Reaction Status Date / Time banana [BANANA] Allergy Unknown VOMITING/HI Verified 07/23/23 17:36 VES tomato [TOMATO] Allergy Unknown HIVES, Verified 07/23/23 17:36 SWOLLEN THROAT Assessment & Plan Assessment & Plan (1) Opioid use disorder: Status: Acute Code(s): F11.90 - Opioid use, unspecified, uncomplicated Assessment and Plan: * Patient appears to be an unreliable historian, however since he continues to use opiates, methadone dose will be increased to address cravings * will follow up in AM Total time managing care of this patient today 20____ minutes. PMFSH Past Medical History Medical History (Updated 07/24/23 @ 17:05 by Swathi Perez RN) Seizure Alcohol use disorder Opioid use disorder Seizure disorder Social History Social History Household Members: Other Household Members Other:: friend Housing: Apartment Do you presently have visiting nurse or other home services: No Alcohol intake: former Patient Tobacco Use Status: Current everyday Tobacco user Tobacco use type: Cigarette Cigarettes Per Day: 4 Second Hand Smoke Exposure: No Substance Use Type: Heroin Advance Directives Date on File: 07/24/23 service: No
[2023-07-24] MEDS: vancomycin HCL 1,250 MG in 0.9 % Sodium Chloride 250 ML 166.67 MG IV (17:57)
[2023-07-24] MEDS: Nicotine 21 MG PATCH.TD24 TRANSDERMA (17:57)
--- NOTE | 2023-07-24 19:20 | PC.NURSE ---
Patient refuses alarms,encouraged to ask for assistance,patient refuses telesiter also,refused skin assessment to bottom area
[2023-07-24] MEDS: OLANZapine 5 MG TABLET PO (21:14)
--- NOTE | 2023-07-24 21:16 | PC.NURSE ---
Patient refuses to have side rails padded for seizure precautions
[2023-07-25] MEDS: Piperacillin Sodium/Tazobactam 4.5 GM in 0.9 % Sodium Chloride 100 ML IV ×2 (01:49→08:29)
[2023-07-25] MEDS: HYDROmorphone HCl 2 MG TABLET 1 MG PO (02:18)
[2023-07-25 03:18] VITALS: RESP 18
[2023-07-25] MEDS: vancomycin HCL 1,250 MG in 0.9 % Sodium Chloride 250 ML 166.67 MG IV (04:37)
--- NOTE | 2023-07-25 05:20 | ECG_ITS ---
Test Reason : chest pain Blood Pressure : / mmHG Vent. Rate : 061 BPM Atrial Rate : 061 BPM P-R Int : 194 ms QRS Dur : 088 ms QT Int : 424 ms P-R-T Axes : 033 064 -03 degrees QTc Int : 426 ms Normal sinus rhythm Abnormal QRS-T angle, consider primary T wave abnormality Abnormal ECG When compared with ECG of 05-MAY-2023 16:02, Vent. rate has decreased BY 40 BPM Questionable change in QRS axis Nonspecific T wave abnormality now evident in Inferior leads Referred By: Mansi Lawler Electronically Signed By:ESPINOZA TRIPLETT
--- NOTE | 2023-07-25 06:01 | PC.NURSE ---
2300 - 0700 pt c/o pain 8/10, sharp pain. notified. new med dilaudid po received. given by this nurse. no effectiveness. later on pt c/o chest pain 5/10 feels like someone press on his chest. MD notified, EKG, and lab EKG sent to MD. pt refused lab. pt was anxious offerd him atarax. pt refued this too. throughout the night. pt said he wants to leaving at 0700. pt requested to pad on right thigh therefore cleaned right thigh with N.S. and covered the wound with big pad and wrapped it. will cont. monitor.
[2023-07-25] MEDS: Pantoprazole Sodium 40 MG/10 ML VIAL IVPUSH (06:12)
[2023-07-25 08:00] VITALS: BP 132/77; PULSE 68; RESP 18; TEMP 36.4; O2SAT 96
[2023-07-25] MEDS: Gabapentin 300 MG CAPSULE PO (08:29)
[2023-07-25] MEDS: 0.9 % Sodium Chloride Flush 3 ML SYRINGE IVFLUSH (08:29)
[2023-07-25] MEDS: levETIRAcetam 1,000 MG TABLET 1000 MG PO (08:29)
[2023-07-25] MEDS: Nicotine 21 MG PATCH.TD24 TRANSDERMA (08:29)
[2023-07-25] MEDS: methADONE HCl 20 MG/2 ML ORAL.CONC 70 MG PO (08:30)
[2023-07-25 08:36] LABS: Creatinine Clr Calc Pharmacy 113.6; Estimated Glomerular Filt Rate > 60
--- NOTE | 2023-07-25 10:18 | PC.NURSE ---
0915- patient left AMA. at bedside and spoke with patient. This RN and Security on standby. Midline removed and intact- patient tolerated well. Patient refused to sign AMA paperwork. Verbalized understanding of risks associated with leaving against medical advice to .
--- NOTE | 2023-07-25 11:34 | P.DS_ITS ---
DS: Providers Provider Date of Service: 07/25/23 Date of admission: 07/24/23 02:31 Date of discharge: 07/25/23 Primary care physician: Maria Isabel Marquez MD Consults: 07/24/23 02:33 Addiction Medicine Routine Consulting Provider: Addiction Covering Reason for consultation: polusubstance use disorder 07/24/23 03:14 Consult to General Surgery Routine Consulting Provider: [facility] Reason for consultation: Right thigh cellulitis, possible debridement 07/25/23 07:35 Consult to Wound Care Routine Reason for consultation: Right thigh clustered open wounds. Attending physician on discharge: Sherwin Singh Discharging clinician: Sherwin Singh DS: Diagnosis Discharge Diagnosis (1) Opioid use disorder: Status: Acute (2) Cellulitis of right thigh: Status: Acute DS: Summary Hospital Course Hospital Course: 52-year-old male with pertinent history of IV drug use disorder, seizure disorder who presents to the emergency department for evaluation of leg infection. Patient states he has had infection over his right thigh that has been ongoing over the last 1 month. It has been slowly getting worse and is with purulent foul-smelling drainage. Initially about a month and a half ago patient took a 10 day course of Bactrim for the same. He noticed improvement wi th Bactrim but states that once the antibiotic course was finished the infection returned. He admits to injecting drugs in his right thigh. Patient states he had a temperature of 102 degrees at home. Has associated chills. No chest discomfort, palpitations, shortness of breath, abdominal pain, change in urinary habits. He does endorse that he has been having intermittent bloody stools for the last 2 weeks. hospital course: Patient was admitted for right leg cellulitis which has multiple ulcers - patient was started on IV antibiotics broad-spectrum vanco and Zosyn, given hydration-CT scan of leg was also done Which showed: 1. Skin thickening and subcutaneous edema of the anterior and medial thigh suspicious for cellulitis. Associated cutaneous defects in the anteromedial thigh could reflect ulcerations. Correlation with physical exam is recommended. 2. Enlarged right external iliac and inguinal lymph nodes, which may be reactive. Imaging follow-up could be performed to assess for resolution. Subsequently patient also yesterday went to the bathroom and asked RN into bathroom to show staff scabs that he had picked off his leg, 3 baggies noted to also be in the toilet, pt told this RN he found them in his bag this afternoon, Security came to bed side and search belongings, no other substances found-please see Rn Rick cardoso note for detailed info. patient also had ? fall yesterday but refused for ct scan head ,otherwise did not sow any bruises ,walking fine . This morning patient decided to leave against medical advice, risk of leaving against medical advice discussed with him in detail length-including worsening of infection, sepsis, limb loss including patient understands and alert oriented x3, refused to take p.o. antibiotics also. Patient was strongly advised to go to nearest emergency room and get treatment. Above was witnessed by the staff. Time Attestation Total time managing care of this patient today: 40 mintues. Discharge Coordination Time (in mins): 40 min Quality: Safe Use of Opioids Does Pt have an Active Cancer Diagnosis on the Problem List?: No Quality: Stroke Does the patient have a stroke diagnosis?: No Physical Exam Vital Signs: Vital Signs: Last Vital Signs Temp 97.6 F 07/25/23 08:00 Pulse 68 07/25/23 08:00 Resp 18 07/25/23 08:00 BP 132/77 07/25/23 08:00 Pulse Ox 96 07/25/23 08:00 O2 Del Method Room Air 07/25/23 08:00 BMI result Body Mass Index 30.8 refused exam. DS: Data Data Completed and Pending Completed studies during hospitalization [Text1]: Procedures Insertion of Infusion Device into Left Brachial Vein, Percutaneous Approach (05/05/23) Labs on day of discharge: Laboratory Results - last 24 hr 07/25/23 08:01 Creatinine 0.91 Estim Creat Clear Calc 113.6 Estimated GFR > 60 Preliminary micro results at discharge 07/24/23 02:16 Routine Culture - Preliminary Thigh Right Staphylococcus aureus 07/24/23 02:15 Blood Culture - Preliminary Blood - Venous No growth after 24 hours. 07/24/23 02:15 Blood Culture - Preliminary Blood - Venous No growth after 24 hours. Imaging Chest x-ray: Radiologist's impression: ITS Impressions Femur CT 07/24/23 04:40 IMPRESSION: 1. Skin thickening and subcutaneous edema of the anterior and medial thigh suspicious for cellulitis. Associated cutaneous defects in the anteromedial thigh could reflect ulcerations. Correlation with physical exam is recommended. 2. Enlarged right external iliac and inguinal lymph nodes, which may be reactive. Imaging follow-up could be performed to assess for resolution. 3. Small knee joint effusion. Discharge Plan Discharge Anticipated Discharge Date/Time: 07/25/23 11:33 Patient Disposition: Left Against Medical Advice Discharge Diagnosis: Skin infection/Cellulitis. Referrals: Maria Isabel Marquez MD [Primary Care Provider] - 1 Week Discharge Medications: Continued methadone [Methadose] 10 mg/mL Concentrate 65 mg PO DAILY levetiracetam 500 mg tablet 1,000 mg PO BID olanzapine 5 mg tablet 5 mg PO BEDTIME gabapentin 300 mg capsule 300 mg PO BID Discharge Orders: Discharge Order (Routine); Ordered 07/25/23 Ordered By: Sherwin Singh Diet: Advance to usual diet Activity on Discharge: As tolerated Print Language: Tuvaluan Care Plan Goals: left AMA . Health Concerns: As above. Plan of Treatment: as above. Assessment: as above. Discharge Date/Time: 07/25/23 09:15
== END 2023-07-25 09:15 | disposition left against medical advice (07) | DRG 383 ==
LOC: HO.ED 07-24 00:09 → HO.EDOVER 07-24 02:34 → HO.S3 07-24 14:44
PROVIDERS: Nurse Practitioner Family; Admitting Provider Student in an Organized Health Care Education/Training Program; Emergency Provider Emergency Medicine Emergency Medical Services; PCP Family Medicine; Visit Provider Internal Medicine
DX: L03.115 Cellulitis of right lower limb (principal); I96 Gangrene, not elsewhere classified; F11.20 Opioid dependence, uncomplicated; F19.90 Other psychoactive substance use, unspecified, uncomplicated; K92.1 Melena; F17.210 Nicotine dependence, cigarettes, uncomplicated; G40.909 Epilepsy, unspecified, not intractable, without status epilepticus; Z71.6 Tobacco abuse counseling; Z87.820 Personal history of traumatic brain injury; Z79.899 Other long term (current) drug therapy
CPT/HCPCS: 36415; 73701; 80048; 80053; 82272; 82550; 82565; 83605; 83735; 85025; 85610; 85652; 85730; 86140; 87040; 87070; 87077; 87147; 87186; 87205; 93005; 99221; 99285; C9113; J1885; J1953; J2543; J3370; J3371; Q9967

== ENCOUNTER 2023-07-24 02:31 | Outpatient (BNV) | payer MEDICAID, SELFPAY | END 2023-07-25 05:20 | PROVIDERS: Admitting Provider Student in an Organized Health Care Education/Training Program; Emergency Provider Emergency Medicine Emergency Medical Services; PCP Family Medicine; Visit Provider Internal Medicine | DX: R94.31 Abnormal electrocardiogram [ECG] [EKG] (principal); R07.9 Chest pain, unspecified | CPT/HCPCS: 93010 ==

== ENCOUNTER → 2023-07-24 02:31 | Outpatient (BNV) | payer MEDICAID, SELFPAY | PROVIDERS: Admitting Provider Student in an Organized Health Care Education/Training Program; Emergency Provider Emergency Medicine Emergency Medical Services; PCP Family Medicine; Visit Provider Student in an Organized Health Care Education/Training Program | DX: L03.115 Cellulitis of right lower limb (principal) | CPT/HCPCS: 99222; 99239; 99499 ==

== ENCOUNTER → 2023-07-24 02:31 | Outpatient (BNV) | payer MEDICAID, SELFPAY | PROVIDERS: Admitting Provider Student in an Organized Health Care Education/Training Program; Emergency Provider Emergency Medicine Emergency Medical Services; PCP Family Medicine; Visit Provider Nurse Practitioner Psychiatric/Mental Health | DX: F11.90 Opioid use, unspecified, uncomplicated (principal) | CPT/HCPCS: 99282; G2213 ==

== ENCOUNTER → 2023-07-24 02:31 | Outpatient (BNV) | payer MEDICAID, SELFPAY | PROVIDERS: Admitting Provider Student in an Organized Health Care Education/Training Program; Emergency Provider Emergency Medicine Emergency Medical Services; PCP Family Medicine; Visit Provider Surgery | DX: L03.115 Cellulitis of right lower limb (principal) | CPT/HCPCS: 99222 ==

== ENCOUNTER 2023-07-28 12:18 | Emergency (ER) | payer MEDICAID, SELFPAY ==
--- NOTE | 2023-07-28 12:31 | ED_ITS ---
HPI - Skin/Abscess/Foreign Bdy General Chief complaint: Wound/Laceration Stated complaint: inner though infection Time Seen by Provider: 07/28/23 13:18 Source: patient and old records reviewed Mode of arrival: ambulatory Limitations: no limitations History of Present Illness HPI narrative: 52 yo male with PMH of seizures and IVDA just admitted here on 07/23 and left AMA on 07/24 treated for R thigh cellulitis - CT scan showed cellulitis but no abscess comes back with c/o R leg still having pain and fever 101 today. He denies injecting into the leg since he left. Has not been seen at any other hospital. He has not take oral antibiotics. complaint: lesion Onset (ago): week(s) Tetanus up to date: yes Location: RLE Severity: moderate Quality: aching Pain Consistency: intermittent Relieving factors: rest Exacerbating factors: movement Context: IVDA Associated symptoms: fever and chills Treatments prior to arrival: none Related Data Home Medications ?Medication ?Instructions ?Recorded ?Confirmed methadone 10 mg/mL oral 65 mg PO DAILY 05/09/23 07/24/23 concentrate (Methadose) gabapentin 300 mg capsule 300 mg PO BID 07/24/23 07/24/23 levetiracetam 500 mg tablet 1,000 mg PO BID 07/24/23 07/24/23 olanzapine 5 mg tablet 5 mg PO BEDTIME 07/24/23 07/24/23 Previous Rx's ?Medication ?Instructions ?Recorded cephalexin 500 mg capsule 500 mg PO QID 10 days #40 caps 07/28/23 doxycycline hyclate 100 mg capsule 100 mg PO BID 14 days #28 caps 07/28/23 Allergies Allergy/AdvReac Type Severity Reaction Status Date / Time banana [BANANA] Allergy Unknown VOMITING/HI Verified 07/28/23 12:33 VES tomato [TOMATO] Allergy Unknown HIVES, Verified 07/28/23 12:33 SWOLLEN THROAT Review of Systems 2 Review of Systems: Constitutional : pos Fever, No Chills ENT/Mouth : No sore throat, No Rhinorrhea Eyes: No Eye Pain, No Swelling, No Redness Cardiovascular : No Chest Pain, No SOB Respiratory : No Cough, No Sputum Gastrointestinal : No Nausea, No Vomiting, No Diarrhea, No abdominal Pain Genitourinary : No Dysuria, No Hematuria Musculoskeletal : No joint pain, No Myalgias, No Joint Swelling Skin : pos Skin Lesions, positive skin rash Neuro : No Weakness, No Numbness, No Headache Psych : No Anxiety, No Depression Heme/Lymph: No Bruising, No Bleeding,No Lymphadenopathy Endocrine : No Polyuria, No Polydipsia All other systems reviewed and are negative [facility] Past Medical History Attestation statement: The following information was validated with the patient. Source: old records reviewed Medical History Seizure Alcohol use disorder Opioid use disorder Seizure disorder Social History Social History Household Members: Other Household Members Other:: friend Housing: Apartment Do you presently have visiting nurse or other home services: No Alcohol intake: former Patient Tobacco Use Status: Current everyday Tobacco user Tobacco use type: Cigarette Cigarettes Per Day: 4 Smoked in Last 30 Days: No Second Hand Smoke Exposure: No Use of substances other than those prescribed or required for medical reasons: Yes Substance Use Type: Heroin Substance Use Frequency Other:: 8 days Last Used Substance: Days (ago) Advance Directives: Yes Advance Directives on File: Yes Advance Directives Date on File: 07/24/23 service: No Physical Exam 2 Vital Signs: Vital Signs: Last Vital Signs Temp 98.0 F 07/28/23 16:21 Pulse 54 07/28/23 16:21 Resp 16 07/28/23 16:21 BP 134/77 07/28/23 16:21 Pulse Ox 97 07/28/23 16:21 O2 Del Method Room Air 07/28/23 16:21 BMI result Body Mass Index 30.6 Appearance: Alert. Oriented X3. No acute distress. Eyes: Pupils equal, round and reactive to light. ENT: Pharynx normal. Neck: Normal inspection. Neck supple. CVS: Normal heart rate and rhythm. Pulses normal. Respiratory: No respiratory distress. Breath sounds normal. Abdomen: Soft and nontender. Skin: Skin warm and dry. Normal skin color. Normal skin turgor. Extremities: R leg mild swelling redness looks improved no fluctuance or abscess noted NV intact see pictures below - they look improved from his last admit Neuro: Oriented X 3. No motor deficit. No sensory deficit. Course Course Course Narrative: This is an RME performed by Osvaldo Navarro CNP: Additional HPI, ROS, PE not included below will be deferred to primary provider. Patient is a 52-year-old male who presents emergency department for reported right thigh infection. The reports he was admitted here recently, for right thigh infection due to IVDA, and he left AMA. Reports no improvement in the infection. Physical exam: Declines examination in triage Plan: Serum labs Medications Administered Discontinued Medications Generic Name Dose Route Start Last Admin Trade Name Collinq PRN Reason Stop Dose Admin Bacitracin 1 appl 07/28/23 15:51 07/28/23 15:53 Bacitracin Oint 0.9 Gm Packet TOPICAL 07/28/23 15:52 1 appl ONCE ONE Administration Protocol Cephalexin HCl 500 mg 07/28/23 15:25 07/28/23 15:47 Cephalexin 500 Mg Capsule PO 07/28/23 15:26 500 mg ONCE ONE Administration Doxycycline Monohydrate 100 mg 07/28/23 15:25 07/28/23 15:47 Doxycycline Monohydrate 100 Mg Capsule PO 07/28/23 15:26 100 mg ONCE ONE Administration Medical Decision Making Medical Decision Making [facility] Narrative: 52 yo male with PMH of IVDA, seizures, chronic R leg wounds here with reported fever and thinks leg is infected at this time afebrile here he is NV intact, no abscess on exam and his pictures are drastically improved compared to prior - if labs show sig derangement I am goingt o start on oral medications and refer to wound care center. Differential Diagnosis Differential Diagnoses: The differential diagnosis associated with the presentation includes IVDA, chronic wounds Admission/Observation Consideration of admission/observation: Escalation of care including admission/observation considered If labs normal I plan to DC out on 2 weeks of oral antibiotics and our vocational case manager Lorrie is going to call and book him wound care center appointment when she returns tomorrow he confirms he has transportation to get here Lab Data [facility] Lab Attestation statement: I reviewed the patient's lab results. 07/28/23 14:49 07/28/23 14:49 Labs: Lab Results 07/28/23 Range/Units 14:49 WBC 4.4 L (4.8-10.8) X10*3/uL RBC 3.97 L (4.60-5.80) X10*6/uL Hgb 11.1 L (14.0-18.0) g/dl Hct 33.0 L (42.0-52.0) % MCV 83.1 (80.0-98.0) fL MCH 28.0 (27.0-33.0) pg MCHC 33.6 (31.0-36.0) g/dl RDW 14.1 (11.0-16.0) % Plt Count 231 (160-400) X10*3/uL MPV 9.2 L (9.4-12.4) fL Immature Gran % (Auto) 0.2 (0.0-0.4) % Neut % (Auto) 55.6 (45-73) % Lymph % (Auto) 33.5 (20-40) % [place] % (Auto) 7.7 (2-11) % Eos % (Auto) 2.5 (0-4) % Baso % (Auto) 0.5 (0-2) % Lymph # (Auto) 1.5 (1.2-4.9) X10*3/uL [place] # (Auto) 0.3 (0.1-1.2) X10*3/uL Eos # (Auto) 0.1 (0.0-0.4) X10*3/uL Baso # (Auto) 0.0 (0.0-0.2) X10*3/uL Abs Immat Gran (auto) 0.01 (0.00-0.03) X10*3/uL Absolute Neuts (auto) 2.4 (2.0-8.3) x10*3/uL Absolute Nucleated RBC 0.000 (0.0-0.012) X10*3/uL Nucleated RBC % (auto) 0.0 (0.0-0.2) /100WBC Smear Tech's Comments VERIFIED Sodium 136 (135-145) mmol/L Potassium 4.0 (3.3-5.1) mmol/L Chloride 100 (96-108) mmol/L Carbon Dioxide 24 (22-29) mmol/L Anion Gap 16 (12-20) BUN 17 H (9-16) mg/dL Creatinine 0.85 (0.5-1.4) mg/dL Estim Creat Clear Calc 121.2 Estimated GFR > 60 Random Glucose 101 (60-115) mg/dL Lactic Acid 1.5 (0.5-2.0) mmol/L Calcium 9.8 D (8.4-10.2) mg/dL Total Bilirubin 0.2 (0.0-1.0) mg/dL AST 18 (5-37) U/L ALT 10 (0-40) U/L Alkaline Phosphatase 126 H (39-117) U/L Total Protein 8.7 H (6.5-8.0) g/dL Albumin 3.8 (3.5-5.0) g/dL External Record Review External record reviewed: Inpatient record Prescription Management I considered prescription management with: Antibiotic Discharge Plan Discharge Clinical Impression: Chronic wound Patient Disposition: Home, Self-Care Instructions: Chronic Wounds (ED) Additional Instructions: return for worsening symptoms or concerns. your labs are reassuring. please follow up with the wound care center our vocational case manager will be calling you sometime tomorrow to help set up appointment Prescriptions: New doxycycline hyclate 100 mg capsule 100 mg PO BID 14 Days Qty: 28 0RF cephalexin 500 mg capsule 500 mg PO QID 10 Days Qty: 40 0RF No Action methadone [Methadose] 10 mg/mL Concentrate 65 mg PO DAILY levetiracetam 500 mg tablet 1,000 mg PO BID olanzapine 5 mg tablet 5 mg PO BEDTIME gabapentin 300 mg capsule 300 mg PO BID Interventions: ED Discharge Assessment Last Done: 07/28/23 16:21 Discharge Date/Time: 07/28/23 16:00 Print Language: Vietnamese
[2023-07-28 12:32] VITALS: BP 143/91; PULSE 76; RESP 18; TEMP 36.7; O2SAT 98; BMI 30.6
--- NOTE | 2023-07-28 13:17 | PC.NURSE ---
Security Becerra went through patient's belongings at bedside, patient changed over into [facility], no behavioral health johnnies available in entire ER at this time.
[2023-07-28 14:27] VITALS: BP 130/82; PULSE 66; RESP 18; TEMP 36.7; O2SAT 96
[2023-07-28 14:58] LABS: Imm Gran Abs Auto 0.01 X10*3/uL (0.00-0.03); Imm Gran Pct Auto 0.2 % (0.0-0.4); MANUAL DIFF FLAG SCAN; PLT CLUMP 1; SCAN SMEAR FLAG 1
[2023-07-28 15:03] LABS: Red Cell Distribution Width 14.1 % (11.0-16.0)
[2023-07-28 15:05] LABS: Basophils Percent Auto 0.5 % (0-2); Eosinophils Absolute Auto 0.1 X10*3/uL (0.0-0.4); Eosinophils Percent Auto 2.5 % (0-4); Hemoglobin 11.1 g/dl (14.0-18.0); Lymphocytes Absolute Auto 1.5 X10*3/uL (1.2-4.9); Lymphocytes Percent Auto 33.5 % (20-40); Mean Corpuscular HGB Conc 33.6 g/dl (31.0-36.0); Mean Corpuscular Volume 83.1 fL (80.0-98.0); Mean Platelet Volume 9.2 fL (9.4-12.4); Monocytes Absolute Auto 0.3 X10*3/uL (0.1-1.2); Monocytes Percent Auto 7.7 % (2-11); Neutrophils Absolute Auto 2.4 x10*3/uL (2.0-8.3); Neutrophils Percent Auto 55.6 % (45-73); Red Blood Count 3.97 X10*6/uL (4.60-5.80)
[2023-07-28 15:09] LABS: Lactic Acid 1.5 mmol/L (0.5-2.0)
[2023-07-28 15:14] LABS: Alanine Aminotransferase 10 U/L (0-40); Albumin Level 3.8 g/dL (3.5-5.0); Alkaline Phosphatase 126 U/L (39-117); Anion Gap 16 (12-20); Aspartate Amino Transferase 18 U/L (5-37); Bilirubin Total 0.2 mg/dL (0.0-1.0); Blood Urea Nitrogen 17 mg/dL (9-16); Calcium 9.8 mg/dL (8.4-10.2); Carbon Dioxide 24 mmol/L (22-29); Chloride 100 mmol/L (96-108); Creatinine Clr Calc Pharmacy 121.2; Estimated Glomerular Filt Rate > 60; Glucose Random 101 mg/dL (60-115); Sodium 136 mmol/L (135-145); Total Protein 8.7 g/dL (6.5-8.0)
[2023-07-28 15:17] LABS: Platelet Count 231 X10*3/uL (160-400); White Blood Count 4.4 X10*3/uL (4.8-10.8)
[2023-07-28 15:18] LABS: SLIDE REVIEW VERIFIED
[2023-07-28] MEDS: Doxycycline Monohydrate 100 MG CAPSULE PO (15:47)
[2023-07-28] MEDS: cephALEXin 500 MG CAPSULE PO (15:47)
[2023-07-28] MEDS: Bacitracin Oint 0.9 GM PACKET 1 APPL TOPICAL (15:53)
--- NOTE | 2023-07-28 16:18 | PC.NURSE ---
Patient's R thigh wound abx applied wrapped with nonadherant gauze and wrapped with kerlix gauze.
[2023-07-28 16:21] VITALS: BP 134/77; PULSE 54; RESP 16; TEMP 36.7; O2SAT 97
--- NOTE | 2023-07-29 09:58 | MHC.CM.ED ---
Received consult from Dr Law on 07/27. Patient was d/c'd home and needed a follow up appointment with [facility] wound care center. Appointment arranged for Tuesday 08/08 at 1245pm. ER d/c faxed to the wound care center. Wound care center will reach out to patient to notify him of the appointment.
== END 2023-07-28 16:00 | disposition home or self-care (01) ==
PROVIDERS: Nurse Practitioner Family; Emergency Provider Emergency Medicine; PCP Family Medicine
DX: S71.101A Unspecified open wound, right thigh, initial encounter (principal); F19.10 Other psychoactive substance abuse, uncomplicated; X58.XXXA Exposure to other specified factors, initial encounter; Y93.9 Activity, unspecified; Y92.9 Unspecified place or not applicable; Y99.9 Unspecified external cause status
CPT/HCPCS: 36415; 80053; 83605; 85025; 87040; 99284

== ENCOUNTER 2024-03-19 18:28 | Inpatient (IN) | payer MEDICAID, SELFPAY ==
--- NOTE | ~2024-03-19 | XR_ITS ---
EXAMINATION: XR TIBIA AND FIBULA, LEFT CLINICAL INFORMATION: Lower leg wound; question osteomyelitis. COMPARISON: CT left knee and left knee radiographs dated 11/03/2015. TECHNIQUE: AP and lateral views of the left tibia and fibula were obtained. FINDINGS: There is mild tricompartment peripheral osteophyte formation of the left knee. Bony alignment and mineralization are normal. No fracture or dislocation is seen. No osseous lesions. There is no focal bone erosion or periosteal thickening. There is overlapping bandage material. Generalized soft tissue swelling and anterolateral soft tissue wounds are noted. XR/XR tibia fibula LT 2V IMPRESSION: Normal left tibia and fibula, without osteomyelitis noted. There are soft tissue wounds. Overlapping dressing material limits evaluation of the lower aspect of the lower leg. Electronically signed by: Wicho Walton MD 03/19/2024 09:06 PM [facility]
[2024-03-19 18:41] VITALS: BP 170/100; PULSE 104; O2SAT 97
[2024-03-19 18:59] VITALS: BP 134/82; PULSE 109; RESP 20; TEMP 36.9; O2SAT 97; BMI 32.5
--- NOTE | 2024-03-19 19:06 | ED.GENADULT ---
HPI - General Adult General Chief complaint: Wound/Laceration Stated complaint: L LEG INFECTION Time Seen by Provider: 03/19/24 23:07 Source: patient Mode of arrival: ambulatory Limitations: no limitations History of Present Illness ED Provider: DR. Torres HPI narrative: 53-year-old male with pertinent history of IV drug disorder, seizure disorder presented to the ED for bilateral leg infection that he follow at the wound clinic, increased drainage and redness and pain in both lower extremities. Patient also stated that knee bleed from rectum on and off for for the past few weeks last he noticed blood in the stool was 3 days ago off. Otherwise no active bleeding or losing blood. Patient feels generalized weakness. No fever, no chills. Related Data Home Medications ?Medication ?Instructions ?Recorded ?Confirmed methadone 10 mg/mL oral 65 mg PO DAILY 05/09/23 07/24/23 concentrate (Methadose) gabapentin 300 mg capsule 300 mg PO BID 07/24/23 07/24/23 levetiracetam 500 mg tablet 1,000 mg PO BID 07/24/23 07/24/23 olanzapine 5 mg tablet 5 mg PO BEDTIME 07/24/23 07/24/23 Previous Rx's ?Medication ?Instructions ?Recorded cephalexin 500 mg capsule 500 mg PO QID 10 days #40 caps 07/28/23 doxycycline hyclate 100 mg capsule 100 mg PO BID 14 days #28 caps 07/28/23 Allergies Allergy/AdvReac Type Severity Reaction Status Date / Time banana [BANANA] Allergy Unknown VOMITING/HI Verified 03/19/24 18:59 VES tomato [TOMATO] Allergy Unknown HIVES, Verified 03/19/24 18:59 SWOLLEN THROAT Review of Systems Review of Systems: All other systems are reviewed and are negative Constitutional: Reports as per HPI and Reports no additional constitutional complaints Eyes: Reports as per HPI and Reports no additional eye complaints Reports system reviewed and no additional complaints, except as documented Cardiovascular: Reports as per HPI and Reports no additional cardiovascular complaints Respiratory: Reports as per HPI and Reports no additional respiratory complaints Gastrointestinal: Reports as per HPI and Reports no additional gastrointestinal complaints Genitourinary: Reports no additional female genitourinary complaints Musculoskeletal: Reports no additional musculoskeletal complaints Skin/Breast: Reports system reviewed and no additional complaints, except as docu Psychiatric: Reports no additional psychiatric complaints Endocrine: Reports no additional endocrine complaints Hematologic/Lymphatic: Reports no additional hematologic/lymphatic complaints Allergic/Immunologic: Reports no additional allergic/immunologic complaints Reports system reviewed and no additional complaints, except as documented and Reports Abnormal speech present [facility] Past Medical History Medical History Seizure Alcohol use disorder Opioid use disorder Seizure disorder Social History Social History Household Members: Other Household Members Other:: friend Housing: Apartment Do you presently have visiting nurse or other home services: No Alcohol intake: former Patient Tobacco Use Status: Current everyday Tobacco user Tobacco use type: Cigarette Cigarettes Per Day: 4 Smoked in Last 30 Days: Yes Second Hand Smoke Exposure: No Use of substances other than those prescribed or required for medical reasons: Yes Substance Use Type: Heroin Advance Directives: Yes Advance Directives on File: Yes Advance Directives Date on File: 07/24/23 Do you have a plan to hurt others: No Plan service: No Physical Exam ED Vital Signs: Vital Signs - 24 hr 03/19/24 18:59 03/19/24 22:49 Temperature 98.5 F 97.6 F Pulse Rate 109 H 85 Respiratory Rate 20 19 Blood Pressure 134/82 126/82 Pulse Oximetry 97 98 Oxygen Delivery Method Room Air Room Air BMI result Body Mass Index 32.5 Vital signs have been reviewed and appear to be correct. Blood pressure elevated. Heart rate normal. Respiratory rate normal. Temperature normal. Oxygen saturation normal. Appearance: Disheveled, Alert. Oriented X3. No acute distress. Head: Normal external exam. Normocephalic. Atraumatic. No Marcus signs noted. No raccoon eyes noted Eyes: PERRLA. EOMI. Conjunctiva and sclera normal. Eyelids normal. ENT: TM's Normal. Pharynx normal. Uvula midline. Moist mucous membranes. No trismus noted. No drooling noted. No muffled voice noted. Neck: Normal inspection. Neck supple. FROM. No adenopathy. Thyroid Normal. No meningeal signs. No neck mass noted. CVS: Normal heart rate and rhythm. Heart sound normal. No murmurs noted. Pulses normal throughout. Respiratory: No respiratory distress. Painless inspiration. Breath sounds normal. No wheezes/rales/rhonchi noted. Chest nontender. No accessory muscle usage noted or decreased air movement noted. Abdomen: Soft and nontender. Bowel sounds normal in all 4 quadrants. No distention noted. No organomegaly noted. No visible injury noted. Rectal exam: Brown stool guaiac negative. Back: No CVA tenderness. Full range of motion noted. Skin: Skin warm and dry. Normal skin color. Normal skin turgor. No rashes/lesions/lacerations noted. Extremities: Bilateral lower extremities redness, hotness, areas of purulent discharge with a foul smell. Neuro: Oriented X 3. Cranial nerve exam: II-XII are grossly intact No motor deficit. No sensory deficit. Reflexes normal. Course Course Course Narrative: RME, this is a rapid medical exam performed by Rober Wray please refer to primary provider for complete H&P- 53-year-old male with past medical history significant for opiate use disorder presents for evaluation of chronic left lower extremity wound for last few months. His wound is draining purulent material, necrotic. Plan for septic workup and x-ray to evaluate for osteomyelitis of the left lower leg Reevaluation(s) Reevaluation #1: 1. Bilateral lower extremity cellulitis, no sepsis criteria was met start the patient on Zosyn IV. 2. Anemia of unclear etiology will transfuse 1 unit of blood. 3. Appear very anxious in the emergency department requesting medication to come down. Time: 23:28 Medical Decision Making Differential Diagnosis Differential Diagnoses: The differential diagnosis associated with the presentation includes (Lower extremity cellulitis, severe anemia, rectal bleed, electrolyte derangement.) Admission/Observation Consideration of admission/observation: Escalation of care including admission/observation considered Consult Healthcare Provider Management of the patient was discussed with: Hospitalist (Dr. Meng) Lab Data MDM Lab Attestation statement: I reviewed the patient's lab results. 03/19/24 21:38 03/19/24 21:38 Labs: Lab Results 03/19/24 Range/Units 21:38 WBC 5.7 (4.8-10.8) X10*3/uL RBC 3.01 L D (4.60-5.80) X10*6/uL Hgb 6.8 L* D (14.0-18.0) g/dl Hct 22.2 L D (42.0-52.0) % MCV 73.8 L (80.0-98.0) fL MCH 22.6 L (27.0-33.0) pg MCHC 30.6 L (31.0-36.0) g/dl RDW 17.6 H (11.0-16.0) % Plt Count 312 D (160-400) X10*3/uL MPV 10.4 (9.4-12.4) fL Immature Gran % (Auto) 0.5 H (0.0-0.4) % Neut % (Auto) 78.4 H (45-73) % Lymph % (Auto) 14.4 L (20-40) % Bennett % (Auto) 6.3 (2-11) % Eos % (Auto) 0.2 (0-4) % Baso % (Auto) 0.2 (0-2) % Lymph # (Auto) 0.8 L (1.2-4.9) X10*3/uL Bennett # (Auto) 0.4 (0.1-1.2) X10*3/uL Eos # (Auto) 0.0 (0.0-0.4) X10*3/uL Baso # (Auto) 0.0 (0.0-0.2) X10*3/uL Abs Immat Gran (auto) 0.03 (0.00-0.03) X10*3/uL Absolute Neuts (auto) 4.5 (2.0-8.3) x10*3/uL Absolute Nucleated RBC 0.000 (0.0-0.012) X10*3/uL Nucleated RBC % (auto) 0.0 (0.0-0.2) /100WBC ESR 124 H (0-15) MM/HR PT 13.7 H (10.9-12.4) SEC INR 1.2 H (0.9-1.1) Sodium 138 (135-145) mmol/L Potassium 3.5 (3.3-5.1) mmol/L Chloride 106 (96-108) mmol/L Carbon Dioxide 23 (22-29) mmol/L Anion Gap 13 (12-20) BUN 11 (9-16) mg/dL Creatinine 0.59 (0.5-1.4) mg/dL Estim Creat Clear Calc 172.5 Estimated GFR > 60 Random Glucose 103 (60-115) mg/dL Lactic Acid 1.0 (0.5-2.0) mmol/L Calcium 8.8 D (8.4-10.2) mg/dL Total Bilirubin 0.2 (0.0-1.0) mg/dL AST 18 (5-37) U/L ALT < 6 (0-40) U/L Alkaline Phosphatase 83 (39-117) U/L C-Reactive Protein 15.02 H (< or = 0.50) mg/dL Total Protein 8.0 (6.5-8.0) g/dL Albumin 3.1 L (3.5-5.0) g/dL Lipase < 4 L (8-78) U/L Influenza Type A (PCR) NEGATIVE (Negative) Influenza Type B (PCR) NEGATIVE (Negative) RSV RNA Qual (PCR) NEGATIVE (Negative) SARS-CoV-2 RNA (RT-PCR) NEGATIVE (Negative) Independent Interpretation I performed an independent interpretation of an: Plain X-Ray (Left lower extremity x-ray:Normal left tibia and fibula, without osteomyelitis noted. There are soft tissue wounds. Overlapping dressing material limits evaluation of the lower aspect of the lower leg. ) Radiology Impression Discussion of test interpretation with radiology: I have reviewed the radiologist's reading. Discharge Plan Discharge Clinical Impression: Bilateral cellulitis of lower leg, Anemia Patient Disposition: Admitted As Inpatient Prescriptions: No Action methadone [Methadose] 10 mg/mL Concentrate 65 mg PO DAILY doxycycline hyclate 100 mg capsule 100 mg PO BID 14 Days Qty: 28 0RF cephalexin 500 mg capsule 500 mg PO QID 10 Days Qty: 40 0RF levetiracetam 500 mg tablet 1,000 mg PO BID olanzapine 5 mg tablet 5 mg PO BEDTIME gabapentin 300 mg capsule 300 mg PO BID Print Language: Syrian
[2024-03-19 21:47] LABS: MANUAL DIFF FLAG NO
[2024-03-19 22:00] LABS: Imm Gran Abs Auto 0.03 X10*3/uL (0.00-0.03); Imm Gran Pct Auto 0.5 % (0.0-0.4); Mean Corpuscular Hemoglobin 22.6 pg (27.0-33.0); PLT CLUMP 1; Red Blood Count 3.01 X10*6/uL (4.60-5.80); Red Cell Distribution Width 17.6 % (11.0-16.0); SCAN SMEAR FLAG 1
[2024-03-19 22:02] LABS: Basophils Percent Auto 0.2 % (0-2); Eosinophils Percent Auto 0.2 % (0-4); Hematocrit 22.2 % (42.0-52.0); Lymphocytes Absolute Auto 0.8 X10*3/uL (1.2-4.9); Lymphocytes Percent Auto 14.4 % (20-40); Mean Corpuscular HGB Conc 30.6 g/dl (31.0-36.0); Mean Corpuscular Volume 73.8 fL (80.0-98.0); Monocytes Absolute Auto 0.4 X10*3/uL (0.1-1.2); Monocytes Percent Auto 6.3 % (2-11); Neutrophils Absolute Auto 4.5 x10*3/uL (2.0-8.3); Neutrophils Percent Auto 78.4 % (45-73)
[2024-03-19 22:03] LABS: Alanine Aminotransferase < 6 U/L (0-40); Albumin Level 3.1 g/dL (3.5-5.0); Alkaline Phosphatase 83 U/L (39-117); Anion Gap 13 (12-20); Aspartate Amino Transferase 18 U/L (5-37); Bilirubin Total 0.2 mg/dL (0.0-1.0); Blood Urea Nitrogen 11 mg/dL (9-16); C Reactive Protein 15.02 mg/dL (< or = 0.50); Calcium 8.8 mg/dL (8.4-10.2); Carbon Dioxide 23 mmol/L (22-29); Chloride 106 mmol/L (96-108); Creatinine Clr Calc Pharmacy 172.5; Estimated Glomerular Filt Rate > 60; Glucose Random 103 mg/dL (60-115); Lipase < 4 U/L (8-78); Potassium 3.5 mmol/L (3.3-5.1); Sodium 138 mmol/L (135-145)
[2024-03-19 22:18] LABS: Hemoglobin 6.8 g/dl (14.0-18.0)
[2024-03-19 22:34] LABS: INTERNATIONAL NORM RATIO 1.2 (0.9-1.1); Prothrombin Time 13.7 SEC (10.9-12.4)
[2024-03-19 22:35] LABS: Influenza A PCR NEGATIVE (Negative); Influenza B PCR NEGATIVE (Negative); Resp Syncy Virus RNA Qual PCR NEGATIVE (Negative); SARS COV2 PCR INHOUSE NEGATIVE (Negative)
[2024-03-19 22:37] LABS: Platelet Count 312 X10*3/uL (160-400); White Blood Count 5.7 X10*3/uL (4.8-10.8)
[2024-03-19 22:38] LABS: Mean Platelet Volume 10.4 fL (9.4-12.4)
[2024-03-19 22:49] VITALS: BP 126/82; PULSE 85; RESP 19; TEMP 36.4; O2SAT 98
[2024-03-19 23:05] LABS: Erythrocyte Sedimentation Rate 124 MM/HR (0-15)
[2024-03-19] MEDS: LORazepam 1 MG TABLET PO (23:35)
[2024-03-20] VITALS (13 sets, daily range): BP systolic 122–148; BP diastolic 67–91; PULSE 72–101; RESP 14–20; TEMP 36.6–37.6; O2SAT 92–97
[2024-03-20 00:08] LABS: OBS Int Ctl Valid YES; OBS1 NEGATIVE (NEGATIVE)
[2024-03-20] MEDS: Piperacillin Sodium/Tazobactam 3.375 GM in 0.9 % Sodium Chloride 50 ML IV ×4 (00:57→23:58)
[2024-03-20 01:20] LABS: Iron 16 mcg/dL (45-160); Percent Iron Saturation 9 % (15-50); Total Iron Binding Capacity 176 mcg/dL (228-428); Unsaturated Iron Binding 160 ug/dL
[2024-03-20] MEDS: OLANZapine 5 MG TABLET PO (01:24)
[2024-03-20] MEDS: Morphine Sulfate 4 MG/ML CARTRIDGE IVPUSH ×5 (01:24→20:27)
[2024-03-20] MEDS: levETIRAcetam 1,000 MG TABLET 1000 MG PO (01:24)
--- NOTE | 2024-03-20 01:28 | PM.IMHP ---
History of Present Illness Date of Service: 03/20/24 Chief Complaint: Cellulitis, Anemia, weakness A 53 years old male with PMH of IVDU, Seizure disorder, chronic wounds in LE presenting to the hospital with worsening lower extremities wounds and generalized weakness. The patient reports feeling sick for months being tired and having no energy with worsening open wounds in his lower extremities that are draining , painful and itchy with foul smell and purulent discharge. The wounds are chronic and reported in previous hospital admissions. he left [facility] more than once and live in a nursing home or the streets. No fever, chills, chest pain, palpitations, SOB, nausea, vomiting, diarrhea or urinary symptoms. In ED he was noticed to have new Anemia. he denies any melena but reports occasional bloody stool last 2 weeks and bleeding from the wounds sometimes. occult stool negative. Hb dropped from >11 to 6.8. to be transfused 1 unit of blood and admitted for further work up and treatment. Review of Systems Review of Systems: No fever, chills but has weakness No chest pain, palpitation No shortness of breath or coughing No abdominal pain, nausea or vomiting No urinary symptoms multiple LEs open wounds PMFSH Medical History Seizure Alcohol use disorder Opioid use disorder Seizure disorder Social History Household Members: Other Household Members Other:: friend Housing: Apartment Do you presently have visiting nurse or other home services: No Alcohol intake: former Patient Tobacco Use Status: Current everyday Tobacco user Tobacco use type: Cigarette Cigarettes Per Day: 4 Smoked in Last 30 Days: Yes Second Hand Smoke Exposure: No Use of substances other than those prescribed or required for medical reasons: Yes Substance Use Type: Heroin Advance Directives: Yes Advance Directives on File: Yes Advance Directives Date on File: 07/24/23 Do you have a plan to hurt others: No Plan service: No Meds Allergies Allergy/AdvReac Type Severity Reaction Status Date / Time banana [BANANA] Allergy Unknown VOMITING/HI Verified 03/19/24 18:59 VES tomato [TOMATO] Allergy Unknown HIVES, Verified 03/19/24 18:59 SWOLLEN THROAT Active Medications: Current Medications Acetaminophen (Acetaminophen 325 Mg Tablet) 650 mg PO Q6H PRN PRN Reason: Pain, Mild 1-3,fever,headache Calcium Carbonate (Calcium Carbonate 750 Mg Tab.Chew) 750 mg PO Q4H PRN PRN Reason: Heartburn Clonazepam (Clonazepam 0.5 Mg Tablet) 0.5 mg PO TID PRN PRN Reason: anxiety/restlessness Ketorolac Tromethamine (Ketorolac Tromethamine 30 Mg/Ml Vial) 30 mg IVPUSH Q6H PRN PRN Reason: Pain, Moderate(Pain Scale 4-6) Stop: 03/25/24 01:10 Magnesium Hydroxide (Milk Of Magnesia 30 Ml Oral.Susp) 30 ml PO DAILY PRN PRN Reason: Constipation Melatonin (Melatonin 3 Mg Tablet) 6 mg PO BEDTIME PRN PRN Reason: Insomnia Morphine Sulfate (Morphine Sulfate 4 Mg/Ml Cartridge) 4 mg IVPUSH Q4H PRN; Protocol PRN Reason: Pain, Severe (Pain Scale 7-10) Last Admin: 03/20/24 01:24 Dose: 4 mg Ondansetron HCl (Ondansetron Hcl 4 Mg/2 Ml Vial) 4 mg IVPUSH Q8H PRN PRN Reason: Nausea and Vomiting Pharmacy Consult (Consult Rx Vancomycin Dosing) 1 each MISCELLANE DAILY PRN PRN Reason: Consult order Sodium Chloride (0.9 % Sodium Chloride Flush 3 Ml Syringe) [facility]ations ?Medication ?Instructions ?Recorded ?Confirmed ?Last Taken ?Type methadone 10 mg/mL oral 65 mg PO DAILY 05/09/23 07/24/23 07/23/23 History concentrate (Methadose) gabapentin 300 mg capsule 300 mg PO BID 07/24/23 07/24/23 Unknown History levetiracetam 500 mg tablet 1,000 mg PO BID 07/24/23 07/24/23 Unknown History olanzapine 5 mg tablet 5 mg PO BEDTIME 07/24/23 07/24/23 Unknown History Physical Exam Vital Signs and Narrative: Vital Signs: Last Vital Signs Temp 97.6 F 03/19/24 22:49 Pulse 85 03/19/24 22:49 Resp 19 03/19/24 22:49 BP 126/82 03/19/24 22:49 Pulse Ox 98 03/19/24 22:49 O2 Del Method Room Air 12/26/24 22:49 BMI result Body Mass Index 32.5 Const: Other: Constitutional : Awake, interactive, not in distress Neck : Normal inspection, Supple Cardiovascular : RRR, no JVP, no lower extremity edema, pansystolic murmur Respiratory : good bilateral air entry, no crackles, wheezes or rhonchi Gastrointestinal: soft, lax, Normal bowel sounds, Non tender Skin : Warm, Dry, bilateral lower extrmeties multiple wounds with necrotic areas of skin with surrounding erythema, foul-smelling purulent discharge, warm to touch and tender Neurological : Alert & oriented x3, No focal deficit Results Labs 03/19/24 21:38 03/19/24 21:38 Labs: Laboratory Results - last 24 hr 03/19/24 03/19/24 03/20/24 21:38 23:50 00:48 MCV 73.8 L MCH 22.6 L MCHC 30.6 L RDW 17.6 H Plt Count 312 D MPV 10.4 Immature Gran % (Auto) 0.5 H Neut % (Auto) 78.4 H Lymph % (Auto) 14.4 L Rabun % (Auto) 6.3 Eos % (Auto) 0.2 Baso % (Auto) 0.2 Lymph # (Auto) 0.8 L Rabun # (Auto) 0.4 Eos # (Auto) 0.0 Baso # (Auto) 0.0 Abs Immat Gran (auto) 0.03 Absolute Neuts (auto) 4.5 Absolute Nucleated RBC 0.000 Nucleated RBC % (auto) 0.0 ESR 124 H PT 13.7 H INR 1.2 H Anion Gap 13 Estim Creat Clear Calc 172.5 Estimated GFR > 60 Random Glucose 103 Lactic Acid 1.0 Calcium 8.8 D Iron 16 L TIBC 176 L % Saturation 9 L Unsat Iron Binding 160 Total Bilirubin 0.2 AST 18 ALT < 6 Alkaline Phosphatase 83 C-Reactive Protein 15.02 H Total Protein 8.0 Albumin 3.1 L Lipase < 4 L Stool Occult Blood NEGATIVE Influenza Type A (PCR) NEGATIVE Influenza Type B (PCR) NEGATIVE RSV RNA Qual (PCR) NEGATIVE SARS-CoV-2 RNA (RT-PCR) NEGATIVE Blood Type O Positive Crossmatch See Detail Imaging Radiologist's Impressions: Impressions Tibia/Fibula X-Ray 03/19/24 19:06 IMPRESSION: Normal left tibia and fibula, without osteomyelitis noted. There are soft tissue wounds. Overlapping dressing material limits evaluation of the lower aspect of the lower leg. Electronically signed by: Wicho Walton MD 03/19/2024 09:06 PM [facility] Assessment and Plan (1) Anemia: Status: Acute (2) Bilateral cellulitis of lower leg: Status: Acute Plan A 53 years old male with PMH of IVDU, Seizure disorder, chronic wounds in LE presenting to the hospital with worsening lower extremities wounds and generalized weakness. Bilateral lower extremities infected wounds and cellulitis worsening overtime not septic blood and wound cultures Start Vancomycin Lethargy chronic infection murmur pansystolic check Echo and pending cultures Acute iron def. anemia likely 2/2 GIB occult -ve iron profile low give Iron supplement Transfuse 1 unit of blood follow CBC Seizure disorder On Keppra Polysubstance use disorder On methadone Med rec pending DVT prophylaxis: SCD given blood loss Full code Admit as inpatient and will require two night minimum hospital stay for IV antibiotics which is not possible in a lesser acute setting. Quality Stroke Does the patient have a stroke diagnosis?: No VTE Prior VTE?: No VTE Risk Level:: Medical - moderate - high VTE Device Contraindication: N/A - Device Ordered VTE Drug Contraindication: Treatment Not Indicated
[2024-03-20 01:43] LABS: Appearance Urine Clear; Color Urine Yellow; Glucose Urine UA Negative (Negative); Leukocyte Esterase Urine Negative (Negative); Nitrite Urine Negative (Negative); PH 5.5 (5.0-9.0); Urine Blood Negative (Negative); Urine Ketones Trace mg/dL (Negative); Urine Protein Trace mg/dL (Neg-Trace)
[2024-03-20 01:46] LABS: Bacteria Urine None Seen (None Seen); Hyaline Casts Urine 0-2 /LPF (0-2); RBC Urine 0-2 /HPF (0-2); Squamous Epithelial Cell Urine 0-2 /HPF (0-2); WBC Urine 0-5 /HPF (0-5)
[2024-03-20 02:19] LABS: Amphetamine Screen Urine Not Detected (Not Detect); Barbiturates, Urine Not Detected (Not Detect); Benzodiazepines Screen Urine Not Detected (Not Detect); Buprenorphine Scr Not Detected (Not Detect); Cannabinoid Screen Urine Not Detected (Not Detect); Cocaine Screen Urine POSITIVE (Not Detect); Fentanyl, urine POSITIVE (Not Detect); Methadone Screen, Urine Positive (Not Detect); Opiate Screen Urine Not Detected (Not Detect); Oxycodone Screen Urine Not Detected (Not Detect); Phencyclidine Screen Urine Not Detected (Not Detect)
--- NOTE | 2024-03-20 02:25 | PC.NURSE ---
Pt was attempting to use heroin in the bathroom, swallowed substance and put other paraphernalia in the toilet when t/w entered the bathroom. Pt belongings all confiscated by security and pt back to room getting blood at this time. Vitals stable. aware
--- NOTE | 2024-03-20 03:19 | PC.NURSE ---
Pt only has 1 IV access, unable to hang vanco at this time because Pt has blood running
--- NOTE | 2024-03-20 04:21 | HO.SKINPHOTO ---
Location: bilateral legs Category:infected wounds Stage: Length: Width: Depth: cm Location: Category: Stage: Length: Width: Depth: cm Location: Category: Stage: Length: Width: Depth: cm Location: Category: Stage: Length: Width: Depth: cm Location: Category: Stage: Length: Width: Depth: cm Location: Category: Stage: Length: Width: Depth: cm
--- NOTE | 2024-03-20 04:22 | HO.SKINPHOTO ---
Location:right leg Category:wounds Stage: Length: Width: Depth: cm Location: Category: Stage: Length: Width: Depth: cm Location: Category: Stage: Length: Width: Depth: cm Location: Category: Stage: Length: Width: Depth: cm Location: Category: Stage: Length: Width: Depth: cm Location: Category: Stage: Length: Width: Depth: cm
--- NOTE | 2024-03-20 04:23 | HO.SKINPHOTO ---
Location:left lower leg Category wounds Stage: Length: Width: Depth: cm Location: Category: Stage: Length: Width: Depth: cm Location: Category: Stage: Length: Width: Depth: cm Location: Category: Stage: Length: Width: Depth: cm Location: Category: Stage: Length: Width: Depth: cm Location: Category: Stage: Length: Width: Depth: cm
--- NOTE | 2024-03-20 04:24 | PC.NURSE ---
Patient arrived from ED with partial dressings to wounds on bilateral legs as appears on pictures. Patient does not let anyone touch the dressings or apply new ones. Blood transfusion in progress, Vanco administration very delayed. Will call pharmacy to adjust time .
[2024-03-20] MEDS: vancomycin/NS 2,000 MG/500 ML PLAST..BAG 250 MG IV (06:39)
[2024-03-20 06:41] LABS: Anion Gap 15 (12-20); Blood Urea Nitrogen 9 mg/dL (9-16); Calcium 8.4 mg/dL (8.4-10.2); Carbon Dioxide 24 mmol/L (22-29); Chloride 103 mmol/L (96-108); Creatinine Clr Calc Pharmacy 154.2; Estimated Glomerular Filt Rate > 60; Glucose Random 97 mg/dL (60-115); Potassium 3.8 mmol/L (3.3-5.1); Sodium 138 mmol/L (135-145)
[2024-03-20 07:11] LABS: Basophils Percent Auto 0.2 % (0-2); Eosinophils Percent Auto 0.2 % (0-4); Hematocrit 22.3 % (42.0-52.0); Imm Gran Abs Auto 0.02 X10*3/uL (0.00-0.03); Imm Gran Pct Auto 0.4 % (0.0-0.4); Lymphocytes Absolute Auto 0.8 X10*3/uL (1.2-4.9); Lymphocytes Percent Auto 16.7 % (20-40); MANUAL DIFF FLAG SCAN; Mean Corpuscular HGB Conc 30.9 g/dl (31.0-36.0); Mean Corpuscular Volume 74.3 fL (80.0-98.0); Monocytes Absolute Auto 0.4 X10*3/uL (0.1-1.2); Monocytes Percent Auto 9.2 % (2-11); Neutrophils Absolute Auto 3.5 x10*3/uL (2.0-8.3); Neutrophils Percent Auto 73.3 % (45-73); PLT CLUMP 1; Red Cell Distribution Width 17.4 % (11.0-16.0); SCAN SMEAR FLAG 1
[2024-03-20 07:22] LABS: Hemoglobin 6.9 g/dl (14.0-18.0)
[2024-03-20 07:29] LABS: Platelet Count 257 X10*3/uL (160-400); SLIDE REVIEW VERIFIED; White Blood Count 4.8 X10*3/uL (4.8-10.8)
--- NOTE | 2024-03-20 07:34 | PHA.PROG ---
Admission Date/Time: March 20, 2024 01:12 Indication: skin + skin structure Weight in k.79 kg Adjusted body weight in Kg: [place] body weight in Kg: Obesity Dosing Indication % IBW: BMI 32.5 Serum Creatinine - Last 168 Hours 03/19/24 03/20/24 21:38 05:44 Creatinine 0.59 0.66 Estimated CrCl and GFR - Last 168 Hours 03/19/24 03/20/24 21:38 05:44 Estim Creat Clear Calc 172.5 154.2 Estimated GFR > 60 > 60 Vancomycin Loading Dose: 2000mg X1 Current Vancomycin Dosing Regimen: 1250mg Q12H Vancomycin Monitoring using AUC goal of 400 - 600 range with trough as surrogate marker: 461 Date and Time for next Vancomycin Level to be drawn: 03/21/24 @1800 Pharmacist Comments on Vancomycin Plan: Patient's renal function and patient's BMI = 32.5, predicted trough 14.1, to be adjusted based on renal function and trough on 03/21. Vancomycin dosing will take advantage of [employer] as a clinical decision support tool that uses Bayesian modeling to calculate individual patient's pharmacokinetic parameters and forecast the patient's drug concentration time course with the target goal AUC 24 range of 400 - 600 mg/L/hr.
[2024-03-20] MEDS: Ketorolac Tromethamine 30 MG/ML VIAL IVPUSH (08:32)
[2024-03-20] MEDS: 0.9 % Sodium Chloride Flush 3 ML SYRINGE IVFLUSH ×2 (08:32→16:19)
[2024-03-20] MEDS: Ferrous Sulfate 324 MG TABLET.DR PO ×2 (08:32→08:44)
[2024-03-20] MEDS: clonazePAM 0.5 MG TABLET PO (08:45)
--- NOTE | 2024-03-20 09:40 | PM.EVENT ---
Event Note Date of Service: 03/20/24 Event Note: Day Team follow up S Seen and examined. Endorsing SI secondary to severe anxiety; no specific plan requesting pscy consult, requesting benzo for anxiety Vitals last documented gen - appears anxious [facility] - s1s2; +murmur skin - b/l acute on chronic wounds; found smelling; see pictures psych - anxious neuro - non-focal A/P 53 yo with active polysubtance abuse who presents with chronic bilateral wounds which appear acute infected continue vancomcyin, add zosyn 1:1 sitter iv ativan x 1 for severe anxiety, PO not working psych consult addiction med consult eval for endocarditis - echo and blood cx pending; empiric abx for now remainder per H&P Time Spent With Patient Time: Total time managing care of this patient today ____ minutes.
--- NOTE | 2024-03-20 10:35 | PHA.MEDREC ---
Pharmacy Consult ? Medication Reconciliation Pharmacy has completed the medication reconciliation. Spoke to patient to confirm med list. Patient was not cooperative since he was in pain and uncomfortable. Was only able to get out of him that he takes keppra 750 mg bid, and gabapentin 300 mg bid and that he takes a med that gets water out of his body . [facility] [place] [facility]. Spoke to pharmacist Jessica at [facility] ([phone]) who confirmed last fill of gabapentin 300 mg bid was on 12/20/23 for 30 day supply and keppra 1000 mg bid on 05/31/23. Notified Dr. Miranda about the these problems with med rec.
[2024-03-20] MEDS: LORazepam 2 MG/ML VIAL 0.5 MG IVPUSH (10:40)
--- NOTE | 2024-03-20 10:47 | MHC.CM.PN ---
PT LIVES WITH A ROOMMATE GETS HIS METHADONE THRU [facility] IN [place] HE HAS HIS OWN RIDE HOME DC PLAN HOME
--- NOTE | 2024-03-20 11:17 | P.CONGS_ITS ---
History of Present Illness Consult details Consult date: 03/20/24 Reason for consult: wound care Requesting physician: Max Meng Narrative: 53 year old male with PMH of IVDU, seizure disorder, chronic wounds in LE, hx of necrotizing fasciitis initially presenting to the ED with complaints of worsening lower extremities wounds and generalized weakness. The wounds are chronic and reported in previous hospital admissions. He reports injecting drugs into his wounds up to 10x per day. He reports the last batch contained fentanyl and Xylazine. He was admitted to the hospitalist service for multiple acute problems including infected LE wounds, anemia and further work up. He reports he wants to get sober now. He reports history of debridement of the right lower extremity wound of his midthigh at [facility] a few months ago and he has been changing this dressing multiple times a day. Review of Systems 2 Review of Systems: Yes all other systems are reviewed and are negative PMFSH Past Medical History Medical History Seizure Alcohol use disorder Opioid use disorder Seizure disorder Social History Social History Household Members: Unknown / Unable to assess Household Members Other:: friend Housing: Unknown / Unable to assess Do you presently have visiting nurse or other home services: No Alcohol intake: former Patient Tobacco Use Status: Tobacco use Unknown Tobacco use type: Cigarette Cigarettes Per Day: 4 Second Hand Smoke Exposure: No Substance Use Type: Heroin Advance Directives Date on File: 07/24/23 service: No Meds Allergies Allergy/AdvReac Type Severity Reaction Status Date / Time banana [BANANA] Allergy Unknown VOMITING/HI Verified 03/19/24 18:59 VES tomato [TOMATO] Allergy Unknown HIVES, Verified 03/19/24 18:59 SWOLLEN THROAT Active Medications: Current Medications Acetaminophen (Acetaminophen 325 Mg Tablet) 650 mg PO Q6H PRN PRN Reason: Pain, Mild 1-3,fever,headache Calcium Carbonate (Calcium Carbonate 750 Mg Tab.Chew) 750 mg PO Q4H PRN PRN Reason: Heartburn Clonazepam (Clonazepam 0.5 Mg Tablet) 0.5 mg PO TID PRN PRN Reason: anxiety/restlessness Last Admin: 03/20/24 08:45 Dose: 0.5 mg Collagenase (Collagenase Clostridium Hist. 30 Gm Tube) 1 appl TOPICAL DAILY [facility]; Protocol Ferrous Sulfate (Ferrous Sulfate 324 Mg Tablet.Dr) 324 mg PO DAILY [facility] Last Admin: 03/20/24 08:44 Dose: 324 mg Vancomycin HCl 1,250 mg/ (Sodium Chloride) 250 mls @ 166.667 mls/hr IV Q12H [facility] Piperacillin Sod/Tazobactam (Sod 3.375 gm/ Sodium Chloride) 50 mls @ 100 mls/hr IV Q6H [facility] Last Admin: 03/20/24 11:08 Dose: 100 mls/hr Ketorolac Tromethamine (Ketorolac Tromethamine 30 Mg/Ml Vial) 30 mg IVPUSH Q6H PRN PRN Reason: Pain, Moderate(Pain Scale 4-6) Stop: 03/25/24 01:10 Last Admin: 03/20/24 08:32 Dose: 30 mg Magnesium Hydroxide (Milk Of Magnesia 30 Ml Oral.Susp) 30 ml PO DAILY PRN PRN Reason: Constipation Melatonin (Melatonin 3 Mg Tablet) 6 mg PO BEDTIME PRN PRN Reason: Insomnia Morphine Sulfate (Morphine Sulfate 4 Mg/Ml Cartridge) 4 mg IVPUSH Q4H PRN; Protocol PRN Reason: Pain, Severe (Pain Scale 7-10) Last Admin: 03/20/24 11:07 Dose: 4 mg Ondansetron HCl (Ondansetron Hcl 4 Mg/2 Ml Vial) 4 mg IVPUSH Q8H PRN PRN Reason: Nausea and Vomiting Pharmacy Consult (Consult Rx Vancomycin Dosing) 1 each MISCELLANE DAILY PRN PRN Reason: Consult order Sodium Chloride (0.9 % Sodium Chloride Flush 3 Ml Syringe) 3 ml IVFLUSH QSHIFT [facility] Last Admin: 03/20/24 08:32 Dose: 3 ml Home Medications ?Medication ?Instructions ?Recorded ?Confirmed ?Last Taken ?Type methadone 10 mg/mL oral 130 mg PO DAILY 05/09/23 03/20/24 03/12/24 History concentrate (Methadose) gabapentin 300 mg capsule 300 mg PO BID 07/24/23 03/20/24 Unknown History levetiracetam 500 mg tablet 750 mg PO BID 07/24/23 03/20/24 Unknown History furosemide 80 mg tablet 80 mg PO DAILY 03/20/24 03/20/24 Unknown History Physical Exam 2 Vital Signs: Vital Signs: Last Vital Signs Temp 99.6 F 03/20/24 08:00 Pulse 90 03/20/24 08:00 Resp 18 03/20/24 08:00 BP 122/73 03/20/24 08:00 Pulse Ox 93 03/20/24 08:00 O2 Del Method Room Air 03/20/24 08:00 BMI result Body Mass Index 32.5 Const: General: no acute distress, alert and anxious; No ill appearing O rientation/consciousness: patient oriented x3 Resp: Effort & Inspection: normal respiratory effort Neuro: General: patient oriented x3 and moves all extremities Extrem: Other: b/l lower extremities with multiple open wounds; right leg: medial aspect of thigh is generally clean appearing and granulating well, no significant erythema, no necrosis there is a smaller wound laterally with some necrotic skin; right lower leg with open wound medially that is covered with exudate, no necrotic tissue left leg: lateral aspect of lower leg with large area with scattered open wounds/ulcers- wounds generally clean appearing with some scabbing laterally; left lower leg anterior aspect with wound covered with exudate left anterior lower leg right lateral thigh right medial thigh left lower leg lateral aspect right lower leg medial aspect Results Labs 03/20/24 13:16 03/20/24 05:44 Labs: Abnormal lab results 03/19/24 03/20/24 03/20/24 Range/Units 21:38 00:48 01:31 RBC 3.01 L D (4.60-5.80) X10*6/uL Hgb 6.8 L* D (14.0-18.0) g/dl Hct 22.2 L D (42.0-52.0) % MCV 73.8 L (80.0-98.0) fL MCH 22.6 L (27.0-33.0) pg MCHC 30.6 L (31.0-36.0) g/dl RDW 17.6 H (11.0-16.0) % Immature Gran % (Auto) 0.5 H (0.0-0.4) % Neut % (Auto) 78.4 H (45-73) % Lymph % (Auto) 14.4 L (20-40) % Lymph # (Auto) 0.8 L (1.2-4.9) X10*3/uL ESR 124 H (0-15) MM/HR PT 13.7 H (10.9-12.4) SEC INR 1.2 H (0.9-1.1) Iron 16 L (45-160) mcg/dL TIBC 176 L (228-428) mcg/dL % Saturation 9 L (15-50) % C-Reactive Protein 15.02 H (< or = 0.50) mg/dL Albumin 3.1 L (3.5-5.0) g/dL Lipase < 4 L (8-78) U/L Urine Methadone Screen Positive H (Not Detect) ng/mL Urine Fentanyl Screen POSITIVE H (Not Detect) Urine Cocaine Screen POSITIVE H (Not Detect) Crossmatch See Detail 03/20/24 Range/Units 05:44 RBC 3.00 L (4.60-5.80) X10*6/uL Hgb 6.9 L* (14.0-18.0) g/dl Hct 22.3 L (42.0-52.0) % MCV 74.3 L (80.0-98.0) fL MCH 23.0 L (27.0-33.0) pg MCHC 30.9 L (31.0-36.0) g/dl RDW 17.4 H (11.0-16.0) % Immature Gran % (Auto) (0.0-0.4) % Neut % (Auto) 73.3 H (45-73) % Lymph % (Auto) 16.7 L (20-40) % Lymph # (Auto) 0.8 L (1.2-4.9) X10*3/uL ESR (0-15) MM/HR PT (10.9-12.4) SEC INR (0.9-1.1) Iron (45-160) mcg/dL TIBC (228-428) mcg/dL % Saturation (15-50) % C-Reactive Protein (< or = 0.50) mg/dL Albumin (3.5-5.0) g/dL Lipase (8-78) U/L Urine Methadone Screen (Not Detect) ng/mL Urine Fentanyl Screen (Not Detect) Urine Cocaine Screen (Not Detect) Crossmatch Short CBC 03/19/24 03/20/24 Range/Units 21:38 05:44 WBC 5.7 4.8 (4.8-10.8) X10*3/uL Hgb 6.8 L* D 6.9 L* (14.0-18.0) g/dl Hct 22.2 L D 22.3 L (42.0-52.0) % Plt Count 312 D 257 (160-400) X10*3/uL BMP 03/19/24 03/20/24 21:38 05:44 Sodium 138 138 Potassium 3.5 3.8 Chloride 106 103 Carbon Dioxide 23 24 BUN 11 9 Creatinine 0.59 0.66 Calcium 8.8 D 8.4 Liver Function 03/19/24 Range/Units 21:38 Total Bilirubin 0.2 (0.0-1.0) mg/dL AST 18 (5-37) U/L ALT < 6 (0-40) U/L Alkaline Phosphatase 83 (39-117) U/L Albumin 3.1 L (3.5-5.0) g/dL Urine 03/20/24 Range/Units 01:31 Urine Color Yellow Urine Appearance Clear Urine pH 5.5 (5.0-9.0) Ur Specific [place] 1.020 (1.005-1.025) Urine Protein Trace (Neg-Trace) mg/dL Urine Glucose (UA) Negative (Negative) mg/dL All other labs normal. Assessment and Plan (1) Bilateral cellulitis of lower leg: Status: Acute (2) Opioid use disorder: Status: Acute (3) Anemia: Status: Acute Plan 53 year old male admitted with multiple acute medical problems including b/l cellulitis and lower leg infected wounds. He has multiple open wounds of his b/l lower extremities likely due to skin popping and Xylazine ulceration. Will attempt wet to dry and santyl dressings for mechanical/enzymatic debridement of the wounds with exudate. We discussed if he has no improvement he would need surgical debridement. He states he refuses this without anethesia. Wound care orders have been placed. Cont local wound care, IV abx, lower leg elevation. Encouraged patient strongly to discontinue injecting into his wounds. Will continue to follow. Right lateral thigh: santyl to wound base followed by telfa and dry dressing and kerlix wrap (change daily) Right medial thigh: cutericin nonadherent dressing followed by silver alginate followed by dry fluffs and kerlix wrap (change silver alginate every dressing other day) Right posterior knee: wet to dry saline saline soaked fluff followed by dry fluff and kerlix wrap Right lower leg, medial aspect: santyl to wound base followed by telfa and dry dressing and kerlix wrap (change daily) Left lower leg lateral aspect: wet to dry fluffs followed by dry fluffs and kerlix (change daily) Left lower leg anterior/medial aspect: santyl to wound base followed by telfa and dry dressing and kerlix wrap (change daily) Procedures Date of Service Date of Service: 03/20/24
--- NOTE | 2024-03-20 12:08 | HE.PHANOTE ---
RE: METHADONE DOSING Last methadone dose of 130 mg was given on 03/12/24 at [facility] [phone] per Ana.
--- NOTE | 2024-03-20 12:45 | PM.GICN ---
History of Present Illness Data of Consult Service Date: 03/20/24 Requesting physician: Max Meng Primary Care Provider: Maria Isabel Marquez MD HPI Reason for consult: Anemia This is a 53-year-old gentleman with past medical history of IV drug use, seizure disorder, chronic lower extremity wounds, who presented to the hospital for infected wounds with purulent drainage. Patient was admitted for wound care as well as acute on chronic anemia noted on labs. History was reviewed with the patient, who states that he has been noticing occasional blood with his stools x 6-7 months associated with reduced appetite and weight loss. No abd pain, N,V. No fam hx of CRC. Was in hospital in July but can not recall if he was having these sx back then. On arrival, vitals noted to be intermittently tachycardic, labs significant for microcytic anemia with hemoglobin of 6.9. Status post 1 unit blood transfusion with repeat pending. Chem 7 with normal renal function. Low iron. LFTs normal. High C-reactive protein of 15. Patient is also noted to be using drugs in the hospital bathroom. U tox positive for fentanyl and cocaine from this morning. X-ray of left leg without radiographic evidence of osteomyelitis. Previous wound cultures from leg + MSSA and strep in July 2023. Blood cultures pending this admission. Review of Systems Review of Systems: Yes all other systems are reviewed and are negative PMF Past Medical History Medical History Seizure Alcohol use disorder Opioid use disorder Seizure disorder Social History Social History Household Members: Unknown / Unable to assess Household Members Other:: friend Housing: Unknown / Unable to assess Do you presently have visiting nurse or other home services: No Alcohol intake: former Patient Tobacco Use Status: Tobacco use Unknown Tobacco use type: Cigarette Cigarettes Per Day: 4 Second Hand Smoke Exposure: No Substance Use Type: Heroin Advance Directives Date on File: 07/24/23 service: No Meds Allergies Allergy/AdvReac Type Severity Reaction Status Date / Time banana [BANANA] Allergy Unknown VOMITING/HI Verified 03/19/24 18:59 VES tomato [TOMATO] Allergy Unknown HIVES, Verified 03/19/24 18:59 SWOLLEN THROAT Active Medications: Current Medications Acetaminophen (Acetaminophen 325 Mg Tablet) 650 mg PO Q6H PRN PRN Reason: Pain, Mild 1-3,fever,headache Calcium Carbonate (Calcium Carbonate 750 Mg Tab.Chew) 750 mg PO Q4H PRN PRN Reason: Heartburn Clonazepam (Clonazepam 0.5 Mg Tablet) 0.5 mg PO TID PRN PRN Reason: anxiety/restlessness Last Admin: 03/20/24 08:45 Dose: 0.5 mg Collagenase (Collagenase Clostridium Hist. 30 Gm Tube) 1 appl TOPICAL DAILY [facility]; Protocol Ferrous Sulfate (Ferrous Sulfate 324 Mg Tablet.Dr) 324 mg PO DAILY [facility] Last Admin: 03/20/24 08:44 Dose: 324 mg Vancomycin HCl 1,250 mg/ (Sodium Chloride) 250 mls @ 166.667 mls/hr IV Q12H [facility] Piperacillin Sod/Tazobactam (Sod 3.375 gm/ Sodium Chloride) 50 mls @ 100 mls/hr IV Q6H [facility] Last Infusion: 03/20/24 11:39 Dose: Infused Ketorolac Tromethamine (Ketorolac Tromethamine 30 Mg/Ml Vial) 30 mg IVPUSH Q6H PRN PRN Reason: Pain, Moderate(Pain Scale 4-6) Stop: 03/25/24 01:10 Last Admin: 03/20/24 08:32 Dose: 30 mg Magnesium Hydroxide (Milk Of Magnesia 30 Ml Oral.Susp) 30 ml PO DAILY PRN PRN Reason: Constipation Melatonin (Melatonin 3 Mg Tablet) 6 mg PO BEDTIME PRN PRN Reason: Insomnia Morphine Sulfate (Morphine Sulfate 4 Mg/Ml Cartridge) 4 mg IVPUSH Q4H PRN; Protocol PRN Reason: Pain, Severe (Pain Scale 7-10) Last Admin: 03/20/24 11:07 Dose: 4 mg Ondansetron HCl (Ondansetron Hcl 4 Mg/2 Ml Vial) 4 mg IVPUSH Q8H PRN PRN Reason: Nausea and Vomiting Pharmacy Consult (Consult Rx Vancomycin Dosing) 1 each MISCELLANE DAILY PRN PRN Reason: Consult order Sodium Chloride (0.9 % Sodium Chloride Flush 3 Ml Syringe) [facility] Last Admin: 03/20/24 08:32 Dose: 3 ml Home Medications ?Medication ?Instructions ?Recorded ?Confirmed ?Last Taken ?Type methadone 10 mg/mL oral 130 mg PO DAILY 05/09/23 03/20/24 03/12/24 History concentrate (Methadose) gabapentin 300 mg capsule 300 mg PO BID 07/24/23 03/20/24 Unknown History levetiracetam 500 mg tablet 750 mg PO BID 07/24/23 03/20/24 Unknown History furosemide 80 mg tablet 80 mg PO DAILY 03/20/24 03/20/24 Unknown History Physical Exam Vital Signs: Vital Signs: Last Vital Signs Temp 97.9 F 03/20/24 12:00 Pulse 90 03/20/24 12:00 Resp 18 03/20/24 12:00 BP 123/67 03/20/24 12:00 Pulse Ox 92 03/20/24 12:00 O2 Del Method Room Air 03/20/24 12:00 BMI result Body Mass Index 32.5 middle-aged male, lethargic, ill appearing Disheveled Nonicteric Abd soft, nontender, nondistended both legs in dry clean dressings significant pedal edema bilaterally Results Labs 03/20/24 13:16 03/20/24 05:44 Labs: Short CBC 03/19/24 03/20/24 Range/Units 21:38 05:44 WBC 5.7 4.8 (4.8-10.8) X10*3/uL Hgb 6.8 L* D 6.9 L* (14.0-18.0) g/dl Hct 22.2 L D 22.3 L (42.0-52.0) % Plt Count 312 D 257 (160-400) X10*3/uL BMP 03/19/24 03/20/24 21:38 05:44 Sodium 138 138 Potassium 3.5 3.8 Chloride 106 103 Carbon Dioxide 23 24 BUN 11 9 Creatinine 0.59 0.66 Calcium 8.8 D 8.4 Liver Function 03/19/24 Range/Units 21:38 Total Bilirubin 0.2 (0.0-1.0) mg/dL AST 18 (5-37) U/L ALT < 6 (0-40) U/L Alkaline Phosphatase 83 (39-117) U/L Albumin 3.1 L (3.5-5.0) g/dL Urine 03/20/24 Range/Units 01:31 Urine Color Yellow Urine Appearance Clear Urine pH 5.5 (5.0-9.0) Ur Specific [place] 1.020 (1.005-1.025) Urine Protein Trace (Neg-Trace) mg/dL Urine Glucose (UA) Negative (Negative) mg/dL Assessment and Plan (1) Anemia: Status: Acute (2) Bilateral cellulitis of lower leg: Status: Acute (3) Opioid use disorder: Status: Acute Plan Based on vitals, anemia is likely subacute. Needs EGD and colonoscopy or further evaluation, but will defer until workup for sepsis and rule out endocarditis has been completed. Differentials include PUD, gastritis, duodenitis, malignancy. This was reviewed with the pt as well who says he'd rather pass away peacefully than have these procedures done despite lengthy discussion re why endoscopy is indicated, that this will be done under anesthesia with minimal discomfort but pt continues to decline amd requests to rest. Sitter present as well for this discussion. Plan: - Transfuse PRBC for Hb <7. - Endocarditis r/o work up initiated by primary team - Pt currently declines endoscopic work up at this time, but will review this again with patient once results of above available - Empiric ppi bid in the meantime Thank you for allowing me to participate in his care. Please do not hesitate to reach out for questions or concerns. Procedures Date of Service Date of Service: 03/20/24
[2024-03-20 13:31] LABS: Ferritin 57 ng/mL (20-250)
[2024-03-20 13:33] LABS: Hemoglobin 8.6 g/dl (14.0-18.0)
[2024-03-20] MEDS: methADONE HCl 20 MG/2 ML ORAL.CONC 70 MG PO (13:33)
[2024-03-20] MEDS: clonazePAM 1 MG TABLET PO ×2 (14:06→18:15)
--- NOTE | 2024-03-20 14:10 | HO.ADDICT_ITS ---
History of Present Illness Date of Service: 03/20/2024 Chief Complaint: infected wounds, acute anemia Reason for Consult: OUD Sources of Information: patient interviewed and chart reviewed HPI Narrative: Patient is a 53 year old male medically admitted with BLE cellulitis and anemia with ?GIB Consult requested due to ongoing substance use Patient seen in room 367. He was sitting up in recliner, sleeping, but wakes to voice--however difficulty remaining awake. Only able to state that he is taking methadone Was using apprx 1/2 pack (approx 50 bags) of heroin/fentanyl daily prior to admission reporting pain unable to participate in interview beyond that Chart review shows that methadone dose was verified--last dose on 03/12/2024 130mg daily OTP [facility] in [place] UDS +fent, methadone and cocaine Past Psychiatric History: Unclear, apparently he has a past history of substance abuse Review of Systems Review of Systems Yes Unobtainable due to mental status Diagnostics Vital Signs (24Hr): Vital Signs - 24 hr 03/19/24 18:59 03/19/24 22:49 03/20/24 02:15 Temperature 98.5 F 97.6 F 98.5 F Pulse Rate 109 H 85 92 Respiratory Rate 20 19 14 Blood Pressure 134/82 126/82 144/83 H Pulse Oximetry 97 98 Oxygen Delivery Method Room Air Room Air 03/20/24 02:24 03/20/24 02:33 03/20/24 03:46 Temperature 98.8 F 98.5 F Pulse Rate 91 91 101 H Respiratory Rate 15 16 18 Blood Pressure 130/82 136/80 135/91 H Pulse Oximetry 95 97 Oxygen Delivery Method Room Air Room Air 03/20/24 05:17 03/20/24 05:43 03/20/24 08:00 Temperature 97.9 F 99.6 F Pulse Rate 89 90 Respiratory Rate 20 18 Blood Pressure 138/82 122/73 Pulse Oximetry 95 93 Oxygen Delivery Method Room Air Room Air 03/20/24 12:00 Temperature 97.9 F Pulse Rate 90 Respiratory Rate 18 Blood Pressure 123/67 Pulse Oximetry 92 Oxygen Delivery Method Room Air BMI result Body Mass Index 32.5 Labs 03/20/24 13:16 03/20/24 05:44 Labs: Laboratory Results - last 48 hr 03/19/24 03/19/24 03/20/24 21:38 23:50 00:48 WBC 5.7 RBC 3.01 L D Hgb 6.8 L* D Hct 22.2 L D MCV 73.8 L MCH 22.6 L MCHC 30.6 L RDW 17.6 H Plt Count 312 D MPV 10.4 Immature Gran % (Auto) 0.5 H Neut % (Auto) 78.4 H Lymph % (Auto) 14.4 L [place] % (Auto) 6.3 Eos % (Auto) 0.2 Baso % (Auto) 0.2 Lymph # (Auto) 0.8 L [place] # (Auto) 0.4 Eos # (Auto) 0.0 Baso # (Auto) 0.0 Abs Immat Gran (auto) 0.03 Absolute Neuts (auto) 4.5 Absolute Nucleated RBC 0.000 Nucleated RBC % (auto) 0.0 Smear Tech's Comments Smear Path Review ESR 124 H PT 13.7 H INR 1.2 H Sodium 138 Potassium 3.5 Chloride 106 Carbon Dioxide 23 Anion Gap 13 BUN 11 Creatinine 0.59 Estim Creat Clear Calc 172.5 Estimated GFR > 60 Random Glucose 103 Lactic Acid 1.0 Calcium 8.8 D Iron 16 L TIBC 176 L % Saturation 9 L Unsat Iron Binding 160 Ferritin Total Bilirubin 0.2 AST 18 ALT < 6 Alkaline Phosphatase 83 C-Reactive Protein 15.02 H Total Protein 8.0 Albumin 3.1 L Lipase < 4 L Urine Color Urine Appearance Urine pH Ur Specific [place] Urine Protein Urine Glucose (UA) Urine Ketones Urine Blood Urine Nitrite Ur Leukocyte Esterase Urine RBC Urine WBC Ur Squamous Epith Cells Urine Bacteria Hyaline Casts Stool Occult Blood NEGATIVE Urine Opiates Screen Ur Buprenorphine Scrn Ur Oxycodone Screen Urine Methadone Screen Urine Fentanyl Screen Ur Barbiturates Screen Ur Phencyclidine Scrn Ur Amphetamines Screen U Benzodiazepines Scrn Urine Cocaine Screen U Marijuana (THC) Screen Influenza Type A (PCR) NEGATIVE Influenza Type B (PCR) NEGATIVE RSV RNA Qual (PCR) NEGATIVE SARS-CoV-2 RNA (RT-PCR) NEGATIVE Blood Type O Positive Antibody Screen NEGATIVE Crossmatch See Detail 03/20/24 03/20/24 03/20/24 01:31 05:44 13:16 WBC 4.8 RBC 3.00 L Hgb 6.9 L* 8.6 L D Hct 22.3 L 27.0 L D MCV 74.3 L MCH 23.0 L MCHC 30.9 L RDW 17.4 H Plt Count 257 MPV 10.0 Immature Gran % (Auto) 0.4 Neut % (Auto) 73.3 H Lymph % (Auto) 16.7 L [place] % (Auto) 9.2 Eos % (Auto) 0.2 Baso % (Auto) 0.2 Lymph # (Auto) 0.8 L [place] # (Auto) 0.4 Eos # (Auto) 0.0 Baso # (Auto) 0.0 Abs Immat Gran (auto) 0.02 Absolute Neuts (auto) 3.5 Absolute Nucleated RBC 0.000 Nucleated RBC % (auto) 0.0 Smear Tech's Comments VERIFIED Smear Path Review ESR PT INR Sodium 138 Potassium 3.8 Chloride 103 Carbon Dioxide 24 Anion Gap 15 BUN 9 Creatinine 0.66 Estim Creat Clear Calc 154.2 Estimated GFR > 60 Random Glucose 97 Lactic Acid Calcium 8.4 Iron TIBC % Saturation Unsat Iron Binding Ferritin 57 Total Bilirubin AST ALT Alkaline Phosphatase C-Reactive Protein Total Protein Albumin Lipase Urine Color Yellow Urine Appearance Clear Urine pH 5.5 Ur Specific [place] 1.020 Urine Protein Trace Urine Glucose (UA) Negative Urine Ketones Trace Urine Blood Negative Urine Nitrite Negative Ur Leukocyte Esterase Negative Urine RBC 0-2 Urine WBC 0-5 Ur Squamous Epith Cells 0-2 Urine Bacteria None Seen Hyaline Casts 0-2 Stool Occult Blood Urine Opiates Screen Not Detected Ur Buprenorphine Scrn Not Detected Ur Oxycodone Screen Not Detected Urine Methadone Screen Positive H Urine Fentanyl Screen POSITIVE H Ur Barbiturates Screen Not Detected Ur Phencyclidine Scrn Not Detected Ur Amphetamines Screen Not Detected U Benzodiazepines Scrn Not Detected Urine Cocaine Screen POSITIVE H U Marijuana (THC) Screen Not Detected Influenza Type A (PCR) Influenza Type B (PCR) RSV RNA Qual (PCR) SARS-CoV-2 RNA (RT-PCR) Blood Type Antibody Screen Crossmatch Imaging Radiology Impressions: ITS Impressions Tibia/Fibula X-Ray 03/19/24 19:06 IMPRESSION: Normal left tibia and fibula, without osteomyelitis noted. There are soft tissue wounds. Overlapping dressing material limits evaluation of the lower aspect of the lower leg. Electronically signed by: Wicho Walton MD 03/19/2024 09:06 PM [facility] Mental Status Exam Mental Status Exam Patient Appearance: Unkempt Level of Consciousness: Drowsy Patient Behavior: Asleep Medications Medications Current Medications Acetaminophen (Acetaminophen 325 Mg Tablet) 650 mg PO Q6H PRN PRN Reason: Pain, Mild 1-3,fever,headache Calcium Carbonate (Calcium Carbonate 750 Mg Tab.Chew) 750 mg PO Q4H PRN PRN Reason: Heartburn Clonazepam (Clonazepam 1 Mg Tablet) 1 mg PO Q6H PRN PRN Reason: anxiety/restlessness Last Admin: 03/20/24 14:06 Dose: 1 mg Collagenase (Collagenase Clostridium Hist. 30 Gm Tube) 1 appl TOPICAL DAILY TANISHA; Protocol Ferrous Sulfate (Ferrous Sulfate 324 Mg Tablet.Dr) 324 mg PO DAILY [facility] Last Admin: 03/20/24 08:44 Dose: 324 mg Vancomycin HCl 1,250 mg/ (Sodium Chloride) 250 mls @ 166.667 mls/hr IV Q12H [facility] Piperacillin Sod/Tazobactam (Sod 3.375 gm/ Sodium Chloride) 50 mls @ 100 mls/hr IV Q6H [facility] Last Infusion: 03/20/24 11:39 Dose: Infused Magnesium Hydroxide (Milk Of Magnesia 30 Ml Oral.Susp) 30 ml PO DAILY PRN PRN Reason: Constipation Melatonin (Melatonin 3 Mg Tablet) 6 mg PO BEDTIME PRN PRN Reason: Insomnia Morphine Sulfate (Morphine Sulfate 4 Mg/Ml Cartridge) 4 mg IVPUSH Q4H PRN; Protocol PRN Reason: Pain, Severe (Pain Scale 7-10) Last Admin: 03/20/24 11:07 Dose: 4 mg Ondansetron HCl (Ondansetron Hcl 4 Mg/2 Ml Vial) 4 mg IVPUSH Q8H PRN PRN Reason: Nausea and Vomiting Pharmacy Consult (Consult Rx Vancomycin Dosing) 1 each MISCELLANE DAILY PRN PRN Reason: Consult order Sodium Chloride (0.9 % Sodium Chloride Flush 3 Ml Syringe) 3 ml IVFLUSH QSHIFT [facility] Last Admin: 03/20/24 08:32 Dose: 3 ml Allergies Allergies Allergy/AdvReac Type Severity Reaction Status Date / Time banana [BANANA] Allergy Unknown VOMITING/HI Verified 03/19/24 18:59 VES tomato [TOMATO] Allergy Unknown HIVES, Verified 03/19/24 18:59 SWOLLEN THROAT Assessment & Plan Assessment & Plan (1) Opioid use disorder: Status: Acute Code(s): F11.90 - Opioid use, unspecified, uncomplicated Assessment and Plan: * methadone 70mg administered today * methadone 100mg tomorrow 03/21--will split dose to address pain (70mg in AM and 30mg in afternoon) * methadone 130mg 03/22 (100mg in AM and 30mg in afternoon) * monitor for over sedation * PRN pain medications as appropriate * HIV and Hepatitis screen Total time managing care of this patient today ___30_ minutes. PMFSH Past Medical History Medical History Seizure Alcohol use disorder Opioid use disorder Seizure disorder Social History Social History Household Members: Unknown / Unable to assess Household Members Other:: friend Housing: Unknown / Unable to assess Do you presently have visiting nurse or other home services: No Alcohol intake: former Patient Tobacco Use Status: Tobacco use Unknown Tobacco use type: Cigarette Cigarettes Per Day: 4 Second Hand Smoke Exposure: No Substance Use Type: Heroin Advance Directives Date on File: 07/24/23 service: No
--- NOTE | 2024-03-20 16:54 | P.CNPS_ITS ---
History of Present Illness Date of Service: 03/20/24 Chief Complaint: infected wounds, acute anemia Reason for Consult: pt with severe anxiety. need assistance in med mgmt Requesting physician: Jerrod Miranda Discussed with referring provider: No Sources of Information: patient interviewed and chart reviewed HPI Narrative: Patient is a 53 year old male with hx of IVDU, Seizure disorder, chronic wounds in LE presenting to the hospital with worsening lower extremities wounds and generalized weakness. psychiatric consult placed for: pt with severe anxiety. need assistance in med mgmt. During psychiatric assessment, pt presents alert and oriented x3. calm and cooperative. Patient reports increased depression and anxiety d/t leg wounds. Patient stated, I feel angry with myself. Look at what I did to my legs . Pt reports IV fentanyl use daily. denies hx of inpatient psychiatric admissions. He does not have outpatient psychiatric providers at this time but states he would like to have referrals. Patient reports difficulty sleeping at night d/t nightmares from past trauma. discussed starting prazosin for nightmares and remeron for sleep and mood; risks/benefits reviewed; pt agreed to trial. denies SI/HI/VH/AH. Past Psychiatric History: does not have outpatient psychiatric providers denies hx of inpatient psychiatric admissions denies SIB/SA Medical Evaluation Reviewed: Yes [facility] Medical History Seizure Alcohol use disorder Opioid use disorder Seizure disorder Family History: Dad- Bipolar Social History: Lives at [facility], . one 22y/o daughter. disability. Substance History: Patient reports daily IV fentanyl use. occasional cocaine and marijuana use. Trauma History: yes Diagnostics Vital Signs (24Hr): Vital Signs - 24 hr 03/19/24 18:59 03/19/24 22:49 03/20/24 02:15 Temperature 98.5 F 97.6 F 98.5 F Pulse Rate 109 H 85 92 Respiratory Rate 20 19 14 Blood Pressure 134/82 126/82 144/83 H Pulse Oximetry 97 98 Oxygen Delivery Method Room Air Room Air 03/20/24 02:24 03/20/24 02:33 03/20/24 03:46 Temperature 98.8 F 98.5 F Pulse Rate 91 91 101 H Respiratory Rate 15 16 18 Blood Pressure 130/82 136/80 135/91 H Pulse Oximetry 95 97 Oxygen Delivery Method Room Air Room Air 03/20/24 05:17 03/20/24 05:43 03/20/24 08:00 Temperature 97.9 F 99.6 F Pulse Rate 89 90 Respiratory Rate 20 18 Blood Pressure 138/82 122/73 Pulse Oximetry 95 93 Oxygen Delivery Method Room Air Room Air 03/20/24 12:00 03/20/24 15:55 Temperature 97.9 F 98.9 F Pulse Rate 90 97 Respiratory Rate 18 20 Blood Pressure 123/67 129/70 Pulse Oximetry 92 93 Oxygen Delivery Method Room Air Room Air BMI result Body Mass Index 32.5 Labs 03/20/24 13:16 03/20/24 05:44 Labs: Laboratory Results - last 48 hr 03/19/24 03/19/24 03/20/24 21:38 23:50 00:48 WBC 5.7 RBC 3.01 L D Hgb 6.8 L* D Hct 22.2 L D MCV 73.8 L MCH 22.6 L MCHC 30.6 L RDW 17.6 H Plt Count 312 D MPV 10.4 Immature Gran % (Auto) 0.5 H Neut % (Auto) 78.4 H Lymph % (Auto) 14.4 L [place] % (Auto) 6.3 Eos % (Auto) 0.2 Baso % (Auto) 0.2 Lymph # (Auto) 0.8 L [place] # (Auto) 0.4 Eos # (Auto) 0.0 Baso # (Auto) 0.0 Abs Immat Gran (auto) 0.03 Absolute Neuts (auto) 4.5 Absolute Nucleated RBC 0.000 Nucleated RBC % (auto) 0.0 Smear Tech's Comments Smear Path Review ESR 124 H PT 13.7 H INR 1.2 H Sodium 138 Potassium 3.5 Chloride 106 Carbon Dioxide 23 Anion Gap 13 BUN 11 Creatinine 0.59 Estim Creat Clear Calc 172.5 Estimated GFR > 60 Random Glucose 103 Lactic Acid 1.0 Calcium 8.8 D Iron 16 L TIBC 176 L % Saturation 9 L Unsat Iron Binding 160 Ferritin Total Bilirubin 0.2 AST 18 ALT < 6 Alkaline Phosphatase 83 C-Reactive Protein 15.02 H Total Protein 8.0 Albumin 3.1 L Lipase < 4 L Urine Color Urine Appearance Urine pH Ur Specific [place] Urine Protein Urine Glucose (UA) Urine Ketones Urine Blood Urine Nitrite Ur Leukocyte Esterase Urine RBC Urine WBC Ur Squamous Epith Cells Urine Bacteria Hyaline Casts Stool Occult Blood NEGATIVE Urine Opiates Screen Ur Buprenorphine Scrn Ur Oxycodone Screen Urine Methadone Screen Urine Fentanyl Screen Ur Barbiturates Screen Ur Phencyclidine Scrn Ur Amphetamines Screen U Benzodiazepines Scrn Urine Cocaine Screen U Marijuana (THC) Screen Influenza Type A (PCR) NEGATIVE Influenza Type B (PCR) NEGATIVE RSV RNA Qual (PCR) NEGATIVE SARS-CoV-2 RNA (RT-PCR) NEGATIVE Blood Type O Positive Antibody Screen NEGATIVE Crossmatch See Detail 03/20/24 03/20/24 03/20/24 01:31 05:44 13:16 WBC 4.8 RBC 3.00 L Hgb 6.9 L* 8.6 L D Hct 22.3 L 27.0 L D MCV 74.3 L MCH 23.0 L MCHC 30.9 L RDW 17.4 H Plt Count 257 MPV 10.0 Immature Gran % (Auto) 0.4 Neut % (Auto) 73.3 H Lymph % (Auto) 16.7 L [place] % (Auto) 9.2 Eos % (Auto) 0.2 Baso % (Auto) 0.2 Lymph # (Auto) 0.8 L [place] # (Auto) 0.4 Eos # (Auto) 0.0 Baso # (Auto) 0.0 Abs Immat Gran (auto) 0.02 Absolute Neuts (auto) 3.5 Absolute Nucleated RBC 0.000 Nucleated RBC % (auto) 0.0 Smear Tech's Comments VERIFIED Smear Path Review ESR PT INR Sodium 138 Potassium 3.8 Chloride 103 Carbon Dioxide 24 Anion Gap 15 BUN 9 Creatinine 0.66 Estim Creat Clear Calc 154.2 Estimated GFR > 60 Random Glucose 97 Lactic Acid Calcium 8.4 Iron TIBC % Saturation Unsat Iron Binding Ferritin 57 Total Bilirubin AST ALT Alkaline Phosphatase C-Reactive Protein Total Protein Albumin Lipase Urine Color Yellow Urine Appearance Clear Urine pH 5.5 Ur Specific [place] 1.020 Urine Protein Trace Urine Glucose (UA) Negative Urine Ketones Trace Urine Blood Negative Urine Nitrite Negative Ur Leukocyte Esterase Negative Urine RBC 0-2 Urine WBC 0-5 Ur Squamous Epith Cells 0-2 Urine Bacteria None Seen Hyaline Casts 0-2 Stool Occult Blood Urine Opiates Screen Not Detected Ur Buprenorphine Scrn Not Detected Ur Oxycodone Screen Not Detected Urine Methadone Screen Positive H Urine Fentanyl Screen POSITIVE H Ur Barbiturates Screen Not Detected Ur Phencyclidine Scrn Not Detected Ur Amphetamines Screen Not Detected U Benzodiazepines Scrn Not Detected Urine Cocaine Screen POSITIVE H U Marijuana (THC) Screen Not Detected Influenza Type A (PCR) Influenza Type B (PCR) RSV RNA Qual (PCR) SARS-CoV-2 RNA (RT-PCR) Blood Type Antibody Screen Crossmatch Imaging Radiology Impressions: ITS Impressions Tibia/Fibula X-Ray 03/19/24 19:06 IMPRESSION: Normal left tibia and fibula, without osteomyelitis noted. There are soft tissue wounds. Overlapping dressing material limits evaluation of the lower aspect of the lower leg. Electronically signed by: Wicho Walton MD 03/19/2024 09:06 PM [facility] Mental Status Exam Mental Status Exam Patient Appearance: Appropriate Patient Orientation: Person, Place, Time and Situation Level of Consciousness: Awake and Alert Patient Behavior: Appropriate, Cooperative and Anxious Mood Description: Depressed Affect Description: Constricted Ability to Follow Directions: Good Speech Pattern: Clear and Appropriate Memory Description: Intact Delusions: Not Present Thought Process: Intact Thought Content: positive for Intact Judgement: Poor Medications Medications Current Medications Acetaminophen (Acetaminophen 325 Mg Tablet) 650 mg PO Q6H PRN PRN Reason: Pain, Mild 1-3,fever,headache Calcium Carbonate (Calcium Carbonate 750 Mg Tab.Chew) 750 mg PO Q4H PRN PRN Reason: Heartburn Clonazepam (Clonazepam 1 Mg Tablet) 1 mg PO Q6H PRN PRN Reason: anxiety/restlessness Last Admin: 03/20/24 14:06 Dose: 1 mg Collagenase (Collagenase Clostridium Hist. 30 Gm Tube) 1 appl TOPICAL DAILY TANISHA; Protocol Ferrous Sulfate (Ferrous Sulfate 324 Mg Tablet.) 324 mg PO DAILY [facility] Last Admin: 03/20/24 08:44 Dose: 324 mg Vancomycin HCl 1,250 mg/ (Sodium Chloride) 250 mls @ 166.667 mls/hr IV Q12H [facility] Piperacillin Sod/Tazobactam (Sod 3.375 gm/ Sodium Chloride) 50 mls @ 100 mls/hr IV Q6H [facility] Last Admin: 03/20/24 16:25 Dose: 100 mls/hr Magnesium Hydroxide (Milk Of Magnesia 30 Ml Oral.Susp) 30 ml PO DAILY PRN PRN Reason: Constipation Melatonin (Melatonin 3 Mg Tablet) 6 mg PO BEDTIME PRN PRN Reason: Insomnia Methadone HCl (Methadone Hcl 20 Mg/2 Ml Oral.Conc) 70 mg PO ONCE@0800 ONE Stop: 03/21/24 08:01 Methadone HCl (Methadone Hcl 20 Mg/2 Ml Oral.Conc) 30 mg PO ONCE@1600 ONE Stop: 03/21/24 16:01 Morphine Sulfate (Morphine Sulfate 4 Mg/Ml Cartridge) 4 mg IVPUSH Q4H PRN; Protocol PRN Reason: Pain, Severe (Pain Scale 7-10) Last Admin: 03/20/24 16:19 Dose: 4 mg Ondansetron HCl (Ondansetron Hcl 4 Mg/2 Ml Vial) 4 mg IVPUSH Q8H PRN PRN Reason: Nausea and Vomiting Pharmacy Consult (Consult Rx Vancomycin Dosing) 1 each MISCELLANE DAILY PRN PRN Reason: Consult order Sodium Chloride (0.9 % Sodium Chloride Flush 3 Ml Syringe) 3 ml IVFLUSH QSHIFT [facility] Last Admin: 03/20/24 16:19 Dose: 3 ml Allergies Allergies Allergy/AdvReac Type Severity Reaction Status Date / Time banana [BANANA] Allergy Unknown VOMITING/HI Verified 03/19/24 18:59 VES tomato [TOMATO] Allergy Unknown HIVES, Verified 03/19/24 18:59 SWOLLEN THROAT Assessment & Plan Assessment & Plan (1) MDD (major depressive disorder), recurrent episode: Status: Acute Code(s): F33.9 - Major depressive disorder, recurrent, unspecified (2) PTSD (post-traumatic stress disorder): Status: Acute Code(s): F43.10 - Post-traumatic stress disorder, unspecified (3) Opioid use disorder: Status: Acute Code(s): F11.90 - Opioid use, unspecified, uncomplicated Plan Recommendations: -Referral to outpatient prescriber and therapist -Start: Remeron 15mg PO bedtime Prazosin 1mg PO bedtime; monitor vitals. Zyprexa 5mg PO Q4HR PRN agitation Total time managing care of this patient today _30___ minutes. Patient educated on: diagnosis and medication risk/benefits
[2024-03-20] MEDS: vancomycin HCL 1,250 MG in 0.9 % Sodium Chloride 250 ML 166.67 MG IV (20:21)
[2024-03-20] MEDS: Prazosin HCL 1 MG CAPSULE PO (20:22)
[2024-03-20] MEDS: Mirtazapine 15 MG TABLET PO (20:22)
[2024-03-20] MEDS: HYDROmorphone HCl 1 MG/ML SYRINGE IVPUSH (23:09)
[2024-03-20] MEDS: Nicotine 21 MG PATCH.TD24 TRANSDERMA (23:10)
[2024-03-21] VITALS (8 sets, daily range): BP systolic 123–168; BP diastolic 68–87; PULSE 57–100; RESP 18–20; TEMP 36.2–37.1; O2SAT 91–94
[2024-03-21] MEDS: ondansetron HCL 4 MG/2 ML VIAL IVPUSH ×3 (00:04→21:45)
[2024-03-21] MEDS: clonazePAM 1 MG TABLET PO ×4 (00:10→20:00)
[2024-03-21] MEDS: 0.9 % Sodium Chloride Flush 3 ML SYRINGE IVFLUSH ×3 (01:03→15:57)
[2024-03-21] MEDS: Metoclopramide HCl 10 MG/2 ML VIAL 5 MG IVPUSH (03:20)
[2024-03-21] MEDS: Morphine Sulfate 4 MG/ML CARTRIDGE IVPUSH ×4 (03:21→21:45)
[2024-03-21] MEDS: Piperacillin Sodium/Tazobactam 3.375 GM in 0.9 % Sodium Chloride 50 ML IV ×4 (03:22→21:46)
--- NOTE | 2024-03-21 05:17 | PC.NURSE ---
Patient scoring around a 9 on COWs assessment per documentation, Dr. Cosby made aware of symptoms new orders placed.
[2024-03-21] MEDS: HYDROmorphone HCl 1 MG/ML SYRINGE IVPUSH ×2 (05:37→08:26)
[2024-03-21] MEDS: ALPRAZolam 0.5 MG TABLET PO (06:38)
--- NOTE | 2024-03-21 07:54 | P.PNGS_ITS ---
Subjective Subjective Date of Service: 03/21/24 Interval history: Patient was in a deep slumber and was unable to be awoken/aroused. Physical Exam 2 Vital Signs: Vital Signs: Last Vital Signs Temp 98.0 F 03/21/24 07:06 Pulse 57 03/21/24 07:06 Resp 20 03/21/24 07:06 BP 148/78 H 03/21/24 07:06 Pulse Ox 92 03/21/24 07:06 O2 Del Method Room Air 03/21/24 07:06 BMI result Body Mass Index 32.5 Extrem: Other: Bilateral lower extremity dressings clean dry and intact. Objective Data Active Medications Acetaminophen (Acetaminophen 325 Mg Tablet) 650 mg PO Q6H PRN PRN Reason: Pain, Mild 1-3,fever,headache Calcium Carbonate (Calcium Carbonate 750 Mg Tab.Chew) 750 mg PO Q4H PRN PRN Reason: Heartburn Clonazepam (Clonazepam 1 Mg Tablet) 1 mg PO Q6H PRN PRN Reason: anxiety/restlessness Last Admin: 03/21/24 06:13 Dose: 1 mg Documented By: JESSEE Collagenase (Collagenase Clostridium Hist. 30 Gm Tube) 1 appl TOPICAL DAILY TANISHA; Protocol Ferrous Sulfate (Ferrous Sulfate 324 Mg Tablet.Dr) 324 mg PO DAILY [facility] 234 BEDS AT [facility] Last Admin: 03/20/24 08:44 Dose: 324 mg Documented By: TREY Vancomycin HCl 1,250 mg/ (Sodium Chloride) 250 mls @ 166.667 mls/hr IV Q12H COUNTS INCLUDE 234 BEDS AT THE [facility] Last Infusion: 03/20/24 23:56 Dose: Infused Documented By: JESSEE Piperacillin Sod/Tazobactam (Sod 3.375 gm/ Sodium Chloride) 50 mls @ 100 mls/hr IV Q6H COUNTS INCLUDE 234 BEDS AT THE [facility] Last Infusion: 03/21/24 03:49 Dose: Infused Documented By: JESSEE Magnesium Hydroxide (Milk Of Magnesia 30 Ml Oral.Susp) 30 ml PO DAILY PRN PRN Reason: Constipation Melatonin (Melatonin 3 Mg Tablet) 6 mg PO BEDTIME PRN PRN Reason: Insomnia Methadone HCl (Methadone Hcl 20 Mg/2 Ml Oral.Conc) 70 mg PO ONCE@0800 ONE Stop: 03/21/24 08:01 Methadone HCl (Methadone Hcl 20 Mg/2 Ml Oral.Conc) 30 mg PO ONCE@1600 ONE Stop: 03/21/24 16:01 Mirtazapine (Mirtazapine 15 Mg Tablet) 15 mg PO BEDTIME COUNTS INCLUDE 234 BEDS AT THE [facility] Last Admin: 03/20/24 20:22 Dose: 15 mg Documented By: JESSEE Morphine Sulfate (Morphine Sulfate 4 Mg/Ml Cartridge) 4 mg IVPUSH Q4H PRN; Protocol PRN Reason: Pain, Severe (Pain Scale 7-10) Last Admin: 03/21/24 03:21 Dose: 4 mg Documented By: JESSEE Nicotine (Nicotine 21 Mg Patch.Td24) 21 mg TRANSDERMA DAILY COUNTS INCLUDE 234 BEDS AT THE [facility] Last Admin: 03/20/24 23:10 Dose: 21 mg Documented By: BEATRIS Ondansetron HCl (Ondansetron Hcl 4 Mg/2 Ml Vial) 4 mg IVPUSH Q8H PRN PRN Reason: Nausea and Vomiting Last Admin: 03/21/24 00:04 Dose: 4 mg Documented By: JESSEE Pharmacy Consult (Consult Rx Vancomycin Dosing) 1 each MISCELLANE DAILY PRN PRN Reason: Consult order Prazosin HCl (Prazosin Hcl 1 Mg Capsule) 1 mg PO BEDTIME TANISHA; Protocol Last Admin: 03/20/24 20:22 Dose: 1 mg Documented By: JESSEE Sodium Chloride (0.9 % Sodium Chloride Flush 3 Ml Syringe) 3 ml IVFLUSH QSHIFT COUNTS INCLUDE 234 BEDS AT THE [facility] Last Admin: 03/21/24 01:03 Dose: 3 ml Documented By: JESSEE Labs 03/20/24 13:16 03/20/24 05:44 Labs: Laboratory Results - last 24 hr 03/20/24 05:44 Smear Path Review Ferritin 57 Microbiology Microbiology Results: Microbiology 03/20/24 00:49 Blood Culture - Preliminary Blood - Venous No growth after 24 hours. 03/19/24 21:38 Blood Culture - Preliminary Blood - Venous No growth after 24 hours. Procedures Date of Service Date of Service: 03/21/24 Progress Note: A&P Assessment and plan (1) Bilateral cellulitis of lower leg: Status: Acute (2) Cellulitis of right thigh: Status: Acute Plan Patient has orders for local wound care by nursing staff were bilateral lower extremity wounds. Time Spent With Patient Time: Total time managing care of this patient today ____ minutes. Quality Stroke Does the patient have a stroke diagnosis?: No VTE Prior VTE?: No VTE Risk Level:: Medical - moderate - high VTE Device Contraindication: N/A - Device Ordered VTE Drug Contraindication: Treatment Not Indicated
[2024-03-21] MEDS: vancomycin HCL 1,250 MG in 0.9 % Sodium Chloride 250 ML 166.67 MG IV ×2 (08:24→20:00)
[2024-03-21] MEDS: Nicotine 21 MG PATCH.TD24 TRANSDERMA (08:26)
[2024-03-21] MEDS: methADONE HCl 20 MG/2 ML ORAL.CONC 70 MG PO (08:27)
[2024-03-21] MEDS: Collagenase Clostridium Hist. 30 GM TUBE 1 APPL TOPICAL (10:38)
[2024-03-21] MEDS: levETIRAcetam 250 MG TABLET 750 MG PO ×2 (10:43→20:00)
[2024-03-21] MEDS: Gabapentin 300 MG CAPSULE PO ×2 (10:43→20:00)
[2024-03-21] MEDS: Furosemide 40 MG TABLET PO (10:43)
[2024-03-21 11:22] LABS: Creatinine Clr Calc Pharmacy 156.5; Estimated Glomerular Filt Rate > 60
--- NOTE | 2024-03-21 12:38 | HO.PM.IMPN ---
Subjective Subjective Date of Service: 03/21/24 Interval History: Seen and evaluated reports anxiety and asking for more anxiety medication then falls to sleep threatening to leave AMA, i explained the risks associated with that and advised him not to wounds covered and dressed Review of Systems multiple LEs open wounds Anxiety Physical Exam Vital Signs: Vital Signs: Last Vital Signs Temp 98.7 F 03/21/24 11:35 Pulse 70 03/21/24 11:35 Resp 20 03/21/24 11:35 BP 168/87 H 03/21/24 11:35 Pulse Ox 91 L 03/21/24 11:35 O2 Del Method Room Air 03/21/24 11:35 BMI result Body Mass Index 32.5 Const: Other: Constitutional : Awake, interactive, not in distress Neck : Normal inspection, Supple Cardiovascular : RRR, no JVP, no lower extremity edema, pansystolic murmur Respiratory : good bilateral air entry, no crackles, wheezes or rhonchi Gastrointestinal: soft, lax, Normal bowel sounds, Non tender Skin : Warm, Dry, bilateral lower extrmeties multiple wounds with necrotic areas of skin with surrounding erythema, purulent discharge, less warm to touch and tender Neurological : Alert & oriented x3, No focal deficit Objective Data Active Medications Acetaminophen (Acetaminophen 325 Mg Tablet) 650 mg PO Q6H PRN PRN Reason: Pain, Mild 1-3,fever,headache Calcium Carbonate (Calcium Carbonate 750 Mg Tab.Chew) 750 mg PO Q4H PRN PRN Reason: Heartburn Clonazepam (Clonazepam 1 Mg Tablet) 1 mg PO Q6H PRN PRN Reason: anxiety/restlessness Last Admin: 03/21/24 06:13 Dose: 1 mg Documented By: JESSEE Collagenase (Collagenase Clostridium Hist. 30 Gm Tube) 1 appl TOPICAL DAILY COUNT INCLUDES [facility]; Protocol Last Admin: 03/21/24 10:38 Dose: 1 appl Documented By: AMY Ferrous Sulfate (Ferrous Sulfate 324 Mg Tablet.) 324 mg PO DAILY COUNT INCLUDES [facility] Last Admin: 03/20/24 08:44 Dose: 324 mg Documented By: TREY Furosemide (Furosemide 40 Mg Tablet) 40 mg PO DAILY COUNT [facility]CLUDES [facility]; Protocol Last Admin: 03/21/24 10:43 Dose: 40 mg Documented By: AMY Gabapentin (Gabapentin 300 Mg Capsule) 300 mg PO BID [facility] Last Admin: 03/21/24 10:43 Dose: 300 mg Documented By: AMY Vancomycin HCl 1,250 mg/ (Sodium Chloride) 250 mls @ 166.667 mls/hr IV Q12H COUNT [facility]CLUDES [facility] Last Infusion: 03/21/24 10:45 Dose: Infused Documented By: AMY Piperacillin Sod/Tazobactam (Sod 3.375 gm/ Sodium Chloride) 50 mls @ 100 mls/hr IV Q6H COUNT [facility]CLUDES [facility] Last Infusion: 03/21/24 11:27 Dose: Infused Documented By: AMY Levetiracetam (Levetiracetam 250 Mg Tablet) 750 mg PO BID [facility] Last Admin: 03/21/24 10:43 Dose: 750 mg Documented By: AMY Magnesium Hydroxide (Milk Of Magnesia 30 Ml Oral.Susp) 30 ml PO DAILY PRN PRN Reason: Constipation Melatonin (Melatonin 3 Mg Tablet) 6 mg PO BEDTIME PRN PRN Reason: Insomnia Methadone HCl (Methadone Hcl 20 Mg/2 Ml Oral.Conc) 30 mg PO ONCE@1600 ONE Stop: 03/21/24 16:01 Mirtazapine (Mirtazapine 15 Mg Tablet) 15 mg PO BEDTIME COUNT [facility]CLUDES [facility] Last Admin: 03/20/24 20:22 Dose: 15 mg Documented By: JESSEE Morphine Sulfate (Morphine Sulfate 4 Mg/Ml Cartridge) 4 mg IVPUSH Q4H PRN; Protocol PRN Reason: Pain, Severe (Pain Scale 7-10) Last Admin: 03/21/24 03:21 Dose: 4 mg Documented By: JESSEE Nicotine (Nicotine 21 Mg Patch.Td24) 21 mg TRANSDERMA DAILY COUNT [facility]CLUDES [facility] Last Admin: 03/21/24 08:26 Dose: 21 mg Documented By: AMY Ondansetron HCl (Ondansetron Hcl 4 Mg/2 Ml Vial) 4 mg IVPUSH Q8H PRN PRN Reason: Nausea and Vomiting Last Admin: 03/21/24 11:27 Dose: 4 mg Documented By: AMY Pharmacy Consult (Consult Rx Vancomycin Dosing) 1 each MISCELLANE DAILY PRN PRN Reason: Consult order Prazosin HCl (Prazosin Hcl 1 Mg Capsule) 1 mg PO BEDTIME [facility]; Protocol Last Admin: 03/20/24 20:22 Dose: 1 mg Documented By: JESSEE Sodium Chloride (0.9 % Sodium Chloride Flush 3 Ml Syringe) 3 ml IVFLUSH QSHIFT COUNT INCLUDES [facility] Last Admin: 03/21/24 08:25 Dose: 3 ml Documented By: AMY Labs 03/20/24 13:16 03/21/24 10:38 Labs: Laboratory Results - last 24 hr 03/20/24 03/21/24 05:44 10:38 Estim Creat Clear Calc 156.5 Estimated GFR > 60 Ferritin 57 Microbiology Microbiology Results: Microbiology 03/20/24 00:49 Blood Culture - Preliminary Blood - Venous No growth after 24 hours. 03/19/24 21:38 Blood Culture - Preliminary Blood - Venous No growth after 24 hours. Assessment and Plan (1) PTSD (post-traumatic stress disorder): Status: Acute (2) MDD (major depressive disorder), recurrent episode: Status: Acute (3) Anemia: Status: Acute (4) Bilateral cellulitis of lower leg: Status: Acute (5) Opioid use disorder: Status: Acute (6) Cellulitis of right thigh: Status: Acute Plan A 53 years old male with PMH of IVDU, Seizure disorder, chronic wounds in LE presenting to the hospital with worsening lower extremities wounds and generalized weakness. Bilateral lower extremities infected wounds and cellulitis not septic , related to xylazine usage blood and wound cultures Start Vancomycin and Zosyn surgery input appreciated; local dressing and monitoring, hold on I&D for now Lethargy chronic infection murmur pansystolic check Echo and pending cultures Acute iron def. anemia likely 2/2 GIB occult -ve iron profile low give Iron supplement Transfuse 1 unit of blood follow CBC GI input appreciated, patient refusing EGD Seizure disorder On Keppra Polysubstance use disorder On methadone, addiction team following DVT prophylaxis: SCD given blood loss Full code Admit as inpatient and will require overnight hospital stay for IV antibiotics which is not possible in a lesser acute setting. Quality Stroke Does the patient have a stroke diagnosis?: No VTE Prior VTE?: No VTE Risk Level:: Medical - moderate - high VTE Device Contraindication: N/A - Device Ordered VTE Drug Contraindication: Treatment Not Indicated
--- NOTE | 2024-03-21 14:02 | P.PNGI_ITS ---
Subjective Subjective Date of Service: 03/21/24 Interval History: Pt seen at bedside. Getting leg dressings changed. Again refused to discuss any endoscopic work up. Critical Care Time (minutes): 0 Physical Exam 2 Vital Signs: Vital Signs: Last Vital Signs Temp 98.7 F 03/21/24 11:35 Pulse 70 03/21/24 11:35 Resp 20 03/21/24 11:35 BP 168/87 H 03/21/24 11:35 Pulse Ox 91 L 03/21/24 11:35 O2 Del Method Room Air 03/21/24 11:35 BMI result Body Mass Index 32.5 middle aged male foul smelling wounds on anterior shins with purulent discharge Objective Data Labs 03/20/24 13:16 03/21/24 10:38 Labs: Laboratory Results - last 24 hr 03/21/24 10:38 Creatinine 0.65 Estim Creat Clear Calc 156.5 Estimated GFR > 60 Microbiology Microbiology Results: Microbiology 03/20/24 00:49 Blood - Venous Blood Culture - Preliminary No growth after 24 hours. 03/19/24 21:38 Blood - Venous Blood Culture - Preliminary No growth after 24 hours. Procedures Date of Service Date of Service: 03/21/24 Progress Note: A&P Assessment and plan (1) Anemia: Status: Acute Assessment and Plan: Has mixed inflammatory + iron def anemia based on iron profile. Bidirectional endoscopy is indicated which the pt continues to decline. Based on assessment, does seem to have the understanding of why the procedure is warranted and risks of delaying/declining egd/colo. Will sign off. Please call back if patient agreeable to proceed. Consider iron supplementation after acute infection settles. Time Spent With Patient Time: Total time managing care of this patient today ____ minutes. Quality Stroke Does the patient have a stroke diagnosis?: No VTE Prior VTE?: No VTE Risk Level:: Medical - moderate - high VTE Device Contraindication: N/A - Device Ordered VTE Drug Contraindication: Treatment Not Indicated
[2024-03-21] MEDS: methADONE HCl 20 MG/2 ML ORAL.CONC 30 MG PO (15:57)
[2024-03-21 18:56] LABS: Vancomycin Random 13.7 mcg/mL (15-20)
[2024-03-21] MEDS: Prazosin HCL 1 MG CAPSULE PO (20:00)
[2024-03-21] MEDS: Mirtazapine 15 MG TABLET PO (20:00)
[2024-03-21] MEDS: Melatonin 3 MG TABLET 6 MG PO (21:46)
[2024-03-21] MEDS: Acetaminophen 325 MG TABLET 650 MG PO (21:46)
[2024-03-22] VITALS (10 sets, daily range): BP systolic 110–136; BP diastolic 57–97; PULSE 81–115; RESP 16–18; TEMP 36.6–37.1; O2SAT 92–98
[2024-03-22] MEDS: ondansetron HCL 4 MG/2 ML VIAL IVPUSH ×2 (05:03→22:15)
[2024-03-22] MEDS: Piperacillin Sodium/Tazobactam 3.375 GM in 0.9 % Sodium Chloride 50 ML IV ×4 (05:03→23:06)
[2024-03-22] MEDS: clonazePAM 1 MG TABLET PO ×3 (05:03→22:15)
[2024-03-22 06:45] LABS: Creatinine Clr Calc Pharmacy 88.5; Estimated Glomerular Filt Rate > 60
[2024-03-22] MEDS: Ferrous Sulfate 324 MG TABLET.DR PO (07:20)
[2024-03-22] MEDS: levETIRAcetam 250 MG TABLET 750 MG PO ×2 (07:20→21:34)
[2024-03-22] MEDS: Furosemide 40 MG TABLET PO (07:21)
[2024-03-22] MEDS: Nicotine 21 MG PATCH.TD24 TRANSDERMA (07:21)
[2024-03-22] MEDS: Gabapentin 300 MG CAPSULE PO ×2 (07:21→21:34)
[2024-03-22] MEDS: Collagenase Clostridium Hist. 30 GM TUBE 1 APPL TOPICAL (07:22)
[2024-03-22] MEDS: 0.9 % Sodium Chloride Flush 3 ML SYRINGE IVFLUSH ×3 (07:22→23:07)
[2024-03-22] MEDS: methADONE HCl 20 MG/2 ML ORAL.CONC 90 MG PO (07:23)
[2024-03-22] MEDS: Morphine Sulfate 4 MG/ML CARTRIDGE IVPUSH ×4 (07:31→21:33)
[2024-03-22] MEDS: vancomycin HCL 1,250 MG in 0.9 % Sodium Chloride 250 ML 166.67 MG IV ×2 (09:33→21:34)
--- NOTE | 2024-03-22 11:49 | P.PNGS_ITS ---
Subjective Subjective Date of Service: 03/22/24 Interval history: Patient has lower extremity wounds were status quo. He said he would undergo showers for wound cleansing but has yet to do so prior to dressing applications. Physical Exam 2 Vital Signs: Vital Signs: Last Vital Signs Temp 98.1 F 03/22/24 11:41 Pulse 115 H 03/22/24 11:41 Resp 16 03/22/24 11:41 BP 110/57 L 03/22/24 11:41 Pulse Ox 92 03/22/24 11:41 O2 Del Method Room Air 03/22/24 11:41 BMI result Body Mass Index 32.5 Extrem: Other: Dressings clean dry and intact Objective Data Active Medications Acetaminophen (Acetaminophen 325 Mg Tablet) 650 mg PO Q6H PRN PRN Reason: Pain, Mild 1-3,fever,headache Last Admin: 03/21/24 21:46 Dose: 650 mg Documented By: BEATRIS Calcium Carbonate (Calcium Carbonate 750 Mg Tab.Chew) 750 mg PO Q4H PRN PRN Reason: Heartburn Clonazepam (Clonazepam 1 Mg Tablet) 1 mg PO Q6H PRN PRN Reason: anxiety/restlessness Last Admin: 03/22/24 05:03 Dose: 1 mg Documented By: BEATRIS Collagenase (Collagenase Clostridium Hist. 30 Gm Tube) 1 appl TOPICAL DAILY [facility]; Protocol Last Admin: 03/22/24 07:22 Dose: 1 appl Documented By: AMY Ferrous Sulfate (Ferrous Sulfate 324 Mg Tablet.) 324 mg PO DAILY [facility] Last Admin: 03/22/24 07:20 Dose: 324 mg Documented By: AMY Furosemide (Furosemide 40 Mg Tablet) 40 mg PO DAILY [facility]; Protocol Last Admin: 03/22/24 07:21 Dose: 40 mg Documented By: AMY Gabapentin (Gabapentin 300 Mg Capsule) 300 mg PO BID [facility] Last Admin: 03/22/24 07:21 Dose: 300 mg Documented By: AMY Vancomycin HCl 1,250 mg/ (Sodium Chloride) 250 mls @ 166.667 mls/hr IV Q12H [facility] Last Infusion: 03/22/24 11:03 Dose: Infused Documented By: AMY Piperacillin Sod/Tazobactam (Sod 3.375 gm/ Sodium Chloride) 50 mls @ 100 mls/hr IV Q6H [facility] Last Infusion: 03/22/24 11:02 Dose: Infused Documented By: AMY Levetiracetam (Levetiracetam 250 Mg Tablet) 750 mg PO BID [facility] Last Admin: 03/22/24 07:20 Dose: 750 mg Documented By: AMY Magnesium Hydroxide (Milk Of Magnesia 30 Ml Oral.Susp) 30 ml PO DAILY PRN PRN Reason: Constipation Melatonin (Melatonin 3 Mg Tablet) 6 mg PO BEDTIME PRN PRN Reason: Insomnia Last Admin: 03/21/24 21:46 Dose: 6 mg Documented By: BEATRIS Methadone HCl (Methadone Hcl 20 Mg/2 Ml Oral.Conc) 90 mg PO DAILY@0800 [facility] Last Admin: 03/22/24 07:23 Dose: 90 mg Documented By: AMY Co-signed By: KAR Methadone HCl (Methadone Hcl 20 Mg/2 Ml Oral.Conc) 30 mg PO DAILY@1400 [facility] Mirtazapine (Mirtazapine 15 Mg Tablet) 15 mg PO BEDTIME [facility] Last Admin: 03/21/24 20:00 Dose: 15 mg Documented By: BEATRIS Morphine Sulfate (Morphine Sulfate 4 Mg/Ml Cartridge) 4 mg IVPUSH Q4H PRN; Protocol PRN Reason: Pain, Severe (Pain Scale 7-10) Last Admin: 03/22/24 07:31 Dose: 4 mg Documented By: AMY Nicotine (Nicotine 21 Mg Patch.Td24) 21 mg TRANSDERMA DAILY [facility] Last Admin: 03/22/24 07:21 Dose: 21 mg Documented By: AMY Ondansetron HCl (Ondansetron Hcl 4 Mg/2 Ml Vial) 4 mg IVPUSH Q8H PRN PRN Reason: Nausea and Vomiting Last Admin: 03/22/24 05:03 Dose: 4 mg Documented By: BEATRIS Pharmacy Consult (Consult Rx Vancomycin Dosing) 1 each MISCELLANE DAILY PRN PRN Reason: Consult order Prazosin HCl (Prazosin Hcl 1 Mg Capsule) 1 mg PO BEDTIME [facility]; Protocol Last Admin: 03/21/24 20:00 Dose: 1 mg Documented By: BEATRIS Sodium Chloride (0.9 % Sodium Chloride Flush 3 Ml Syringe) 3 ml IVFLUSH QSHIFT [facility] Last Admin: 03/22/24 07:22 Dose: 3 ml Documented By: AMY Labs 03/20/24 13:16 03/22/24 06:17 Labs: Laboratory Results - last 24 hr 03/21/24 03/22/24 18:05 06:17 Estim Creat Clear Calc 88.5 Estimated GFR > 60 Random Vancomycin 13.7 L Microbiology Microbiology Results: Microbiology 03/21/24 10:55 Gram Stain - Final Leg Left Routine Culture - Preliminary Culture in progress. 03/20/24 00:49 Blood Culture - Preliminary Blood - Venous No growth after 48 hours. 03/19/24 21:38 Blood Culture - Preliminary Blood - Venous No growth after 48 hours. Procedures Date of Service Date of Service: 03/22/24 Progress Note: A&P Assessment and plan (1) Bilateral cellulitis of lower leg: Status: Acute (2) Cellulitis of right thigh: Status: Acute Plan For showering with wound dressings wet-to-dry to follow. Time Spent With Patient Time: Total time managing care of this patient today ____ minutes. Quality Stroke Does the patient have a stroke diagnosis?: No VTE Prior VTE?: No VTE Risk Level:: Medical - moderate - high VTE Device Contraindication: N/A - Device Ordered VTE Drug Contraindication: Treatment Not Indicated
[2024-03-22] MEDS: Acetaminophen 325 MG TABLET 650 MG PO (12:17)
--- NOTE | 2024-03-22 13:57 | P.PNIM_ITS ---
Subjective Subjective Date of Service: 03/22/24 Interval History: Seen and evaluated reports anxiety pain in wounds wounds covered and dressed Review of Systems Review of Systems: Yes all other systems are reviewed and are negative Physical Exam 2 Vital Signs: Vital Signs: Last Vital Signs Temp 98.1 F 03/22/24 11:41 Pulse 115 H 03/22/24 11:41 Resp 16 03/22/24 11:41 BP 110/57 L 03/22/24 11:41 Pulse Ox 92 03/22/24 11:41 O2 Del Method Room Air 03/22/24 11:41 BMI result Body Mass Index 32.5 Const: Other: Constitutional : Awake, interactive, not in distress Neck : Normal inspection, Supple Cardiovascular : RRR, no JVP, no lower extremity edema, pansystolic murmur Respiratory : good bilateral air entry, no crackles, wheezes or rhonchi Gastrointestinal: soft, lax, Normal bowel sounds, Non tender Skin : Warm, Dry, bilateral lower extrmeties multiple wounds with necrotic areas of skin with surrounding erythema, purulent discharge, less warm to touch and tender Neurological : Alert & oriented x3, No focal deficit Objective Data Active Medications Acetaminophen (Acetaminophen 325 Mg Tablet) 650 mg PO Q6H PRN PRN Reason: Pain, Mild 1-3,fever,headache Last Admin: 03/22/24 12:17 Dose: 650 mg Documented By: AMY Calcium Carbonate (Calcium Carbonate 750 Mg Tab.Chew) 750 mg PO Q4H PRN PRN Reason: Heartburn Clonazepam (Clonazepam 1 Mg Tablet) 1 mg PO Q6H PRN PRN Reason: anxiety/restlessness Last Admin: 03/22/24 05:03 Dose: 1 mg Documented By: BEATRIS Collagenase (Collagenase Clostridium Hist. 30 Gm Tube) 1 appl TOPICAL DAILY [facility]; Protocol Last Admin: 03/22/24 07:22 Dose: 1 appl Documented By: AMY Ferrous Sulfate (Ferrous Sulfate 324 Mg Tablet.) 324 mg PO DAILY [facility] Last Admin: 03/22/24 07:20 Dose: 324 mg Documented By: AMY Furosemide (Furosemide 40 Mg Tablet) 40 mg PO DAILY [facility]; Protocol Last Admin: 03/22/24 07:21 Dose: 40 mg Documented By: AMY Gabapentin (Gabapentin 300 Mg Capsule) 300 mg PO BID [facility] Last Admin: 03/22/24 07:21 Dose: 300 mg Documented By: AMY Vancomycin HCl 1,250 mg/ (Sodium Chloride) 250 mls @ 166.667 mls/hr IV Q12H [facility] Last Infusion: 03/22/24 11:03 Dose: Infused Documented By: AMY Piperacillin Sod/Tazobactam (Sod 3.375 gm/ Sodium Chloride) 50 mls @ 100 mls/hr IV Q6H [facility] Last Infusion: 03/22/24 11:02 Dose: Infused Documented By: AMY Levetiracetam (Levetiracetam 250 Mg Tablet) 750 mg PO BID [facility] Last Admin: 03/22/24 07:20 Dose: 750 mg Documented By: AMY Magnesium Hydroxide (Milk Of Magnesia 30 Ml Oral.Susp) 30 ml PO DAILY PRN PRN Reason: Constipation Melatonin (Melatonin 3 Mg Tablet) 6 mg PO BEDTIME PRN PRN Reason: Insomnia Last Admin: 03/21/24 21:46 Dose: 6 mg Documented By: BEATRIS Methadone HCl (Methadone Hcl 20 Mg/2 Ml Oral.Conc) 90 mg PO DAILY@0800 [facility] Last Admin: 03/22/24 07:23 Dose: 90 mg Documented By: AMY Co-signed By: KAR Methadone HCl (Methadone Hcl 20 Mg/2 Ml Oral.Conc) 30 mg PO DAILY@1400 [facility] Mirtazapine (Mirtazapine 15 Mg Tablet) 15 mg PO BEDTIME [facility] Last Admin: 03/21/24 20:00 Dose: 15 mg Documented By: BEATRIS Morphine Sulfate (Morphine Sulfate 4 Mg/Ml Cartridge) 4 mg IVPUSH Q4H PRN; Protocol PRN Reason: Pain, Severe (Pain Scale 7-10) Last Admin: 03/22/24 12:18 Dose: 4 mg Documented By: AMY Nicotine (Nicotine 21 Mg Patch.Td24) 21 mg TRANSDERMA DAILY [facility] Last Admin: 03/22/24 07:21 Dose: 21 mg Documented By: AMY Ondansetron HCl (Ondansetron Hcl 4 Mg/2 Ml Vial) 4 mg IVPUSH Q8H PRN PRN Reason: Nausea and Vomiting Last Admin: 03/22/24 05:03 Dose: 4 mg Documented By: BEATRIS Pharmacy Consult (Consult Rx Vancomycin Dosing) 1 each MISCELLANE DAILY PRN PRN Reason: Consult order Prazosin HCl (Prazosin Hcl 1 Mg Capsule) 1 mg PO BEDTIME [facility]; Protocol Last Admin: 03/21/24 20:00 Dose: 1 mg Documented By: BEATRIS Sodium Chloride (0.9 % Sodium Chloride Flush 3 Ml Syringe) 3 ml IVFLUSH QSHIFT [facility] Last Admin: 03/22/24 07:22 Dose: 3 ml Documented By: AMY Labs 03/20/24 13:16 03/22/24 06:17 Labs: Laboratory Results - last 24 hr 03/21/24 03/22/24 18:05 06:17 Estim Creat Clear Calc 88.5 Estimated GFR > 60 Random Vancomycin 13.7 L Microbiology Microbiology Results: Microbiology 03/21/24 10:55 Gram Stain - Final Leg Left Routine Culture - Preliminary Culture in progress. 03/20/24 00:49 Blood Culture - Preliminary Blood - Venous No growth after 48 hours. 03/19/24 21:38 Blood Culture - Preliminary Blood - Venous No growth after 48 hours. Assessment and Plan (1) Bilateral cellulitis of lower leg: Status: Acute (2) Opioid use disorder: Status: Acute Plan A 53 years old male with PMH of IVDU, Seizure disorder, chronic wounds in LE presenting to the hospital with worsening lower extremities wounds and generalized weakness. Bilateral lower extremities infected wounds and cellulitis not septic , related to xylazine usage blood and wound cultures pending Continue Vancomycin and Zosyn surgery input appreciated; local dressing and monitoring, hold on I&D for now Lethargy chronic infection murmur pansystolic check Echo and pending cultures Acute iron def. anemia likely 2/2 GIB occult -ve iron profile low give Iron supplement Transfuse 1 unit of blood follow CBC GI input appreciated, patient refusing EGD Seizure disorder On Keppra Polysubstance use disorder On methadone, addiction team following DVT prophylaxis: SCD given blood loss Full code Admit as inpatient and will require overnight hospital stay for IV antibiotics and surgery team evaluation which is not possible in a lesser acute setting. Quality Stroke Does the patient have a stroke diagnosis?: No VTE Prior VTE?: No VTE Risk Level:: Medical - moderate - high VTE Device Contraindication: N/A - Device Ordered VTE Drug Contraindication: Treatment Not Indicated
[2024-03-22] MEDS: methADONE HCl 20 MG/2 ML ORAL.CONC 30 MG PO (14:37)
--- NOTE | 2024-03-22 18:21 | PC.NURSE ---
DR. Henriquez requested that patient shower and cleanse legs and feet thoroughly in the shower. Patient was prompted and encouraged to shower several times but refused and stated that he just wants to rest and he will shower tomorrow morning.
[2024-03-22 18:54] LABS: Vancomycin Random 14.5 mcg/mL (15-20)
[2024-03-22] MEDS: Melatonin 3 MG TABLET 6 MG PO (21:33)
[2024-03-22] MEDS: Mirtazapine 15 MG TABLET PO (21:34)
[2024-03-22] MEDS: Prazosin HCL 1 MG CAPSULE PO (21:34)
[2024-03-23] VITALS (8 sets, daily range): BP systolic 112–150; BP diastolic 58–76; PULSE 89–111; RESP 16–18; TEMP 36.3–37.1; O2SAT 91–94
[2024-03-23] MEDS: Piperacillin Sodium/Tazobactam 3.375 GM in 0.9 % Sodium Chloride 50 ML IV ×4 (03:51→21:49)
[2024-03-23 04:24] LABS: HIV AB/AG Nonreactive (Nonreactive); HIV Num 1 0.06 S/CO (0.00-0.99)
[2024-03-23 04:32] LABS: ~HepC Num1 12.52 S/CO (0.00-0.79); ~Hepatitis C Antibody Reactive (Nonreactive)
[2024-03-23 07:14] LABS: Creatinine Clr Calc Pharmacy 122.6; Estimated Glomerular Filt Rate > 60
[2024-03-23] MEDS: levETIRAcetam 250 MG TABLET 750 MG PO ×2 (08:41→19:58)
[2024-03-23] MEDS: clonazePAM 1 MG TABLET PO ×2 (08:41→20:03)
[2024-03-23] MEDS: Furosemide 40 MG TABLET PO (08:41)
[2024-03-23] MEDS: Ferrous Sulfate 324 MG TABLET.DR PO (08:41)
[2024-03-23] MEDS: Gabapentin 300 MG CAPSULE PO ×2 (08:41→19:58)
[2024-03-23] MEDS: Nicotine 21 MG PATCH.TD24 TRANSDERMA (08:48)
[2024-03-23] MEDS: 0.9 % Sodium Chloride Flush 3 ML SYRINGE IVFLUSH ×3 (08:50→20:01)
[2024-03-23] MEDS: vancomycin HCL 1,250 MG in 0.9 % Sodium Chloride 250 ML 166.67 MG IV ×2 (08:51→19:57)
--- NOTE | 2024-03-23 09:10 | PC.NURSE ---
No sitter needed per MD.
--- NOTE | 2024-03-23 10:10 | P.PNGS_ITS ---
Subjective Subjective Date of Service: 03/23/24 Interval history: Eating breakfast. Currently refusing dressing change until he wakes up more . States he will shower after eating and then will agree to have his dressing changed. States he sort of showered yesterday and partially washed his legs. Physical Exam 2 Vital Signs: Vital Signs: Last Vital Signs Temp 97.8 F 03/23/24 07:24 Pulse 95 03/23/24 07:24 Resp 16 03/23/24 07:24 BP 119/69 03/23/24 07:24 Pulse Ox 91 L 03/23/24 07:24 O2 Del Method Room Air 03/23/24 03:18 BMI result Body Mass Index 32.5 Const: General: comfortable, no acute distress and alert Extrem: Other: b/l leg dressings intact Objective Data Active Medications Acetaminophen (Acetaminophen 325 Mg Tablet) 650 mg PO Q6H PRN PRN Reason: Pain, Mild 1-3,fever,headache Last Admin: 03/22/24 12:17 Dose: 650 mg Documented By: AMY Calcium Carbonate (Calcium Carbonate 750 Mg Tab.Chew) 750 mg PO Q4H PRN PRN Reason: Heartburn Clonazepam (Clonazepam 1 Mg Tablet) 1 mg PO Q6H PRN PRN Reason: anxiety/restlessness Last Admin: 03/23/24 08:41 Dose: 1 mg Documented By: STEPHY Collagenase (Collagenase Clostridium Hist. 30 Gm Tube) 1 appl TOPICAL DAILY [facility]; Protocol Last Admin: 03/22/24 07:22 Dose: 1 appl Documented By: AMY Ferrous Sulfate (Ferrous Sulfate 324 Mg Tablet.) 324 mg PO DAILY [facility] Last Admin: 03/23/24 08:41 Dose: 324 mg Documented By: STEPHY Furosemide (Furosemide 40 Mg Tablet) 40 mg PO DAILY [facility]; Protocol Last Admin: 03/23/24 08:41 Dose: 40 mg Documented By: STEPHY Gabapentin (Gabapentin 300 Mg Capsule) 300 mg PO BID [facility] Last Admin: 03/23/24 08:41 Dose: 300 mg Documented By: STEPHY Vancomycin HCl 1,250 mg/ (Sodium Chloride) 250 mls @ 166.667 mls/hr IV Q12H [facility] Last Admin: 03/23/24 08:51 Dose: 166.67 mls/hr Documented By: STEPHY Piperacillin Sod/Tazobactam (Sod 3.375 gm/ Sodium Chloride) 50 mls @ 100 mls/hr IV Q6H [facility] Last Infusion: 03/23/24 04:34 Dose: Infused Documented By: BEATRIS Levetiracetam (Levetiracetam 250 Mg Tablet) 750 mg PO BID [facility] Last Admin: 03/23/24 08:41 Dose: 750 mg Documented By: STEPHY Magnesium Hydroxide (Milk Of Magnesia 30 Ml Oral.Susp) 30 ml PO DAILY PRN PRN Reason: Constipation Melatonin (Melatonin 3 Mg Tablet) 6 mg PO BEDTIME PRN PRN Reason: Insomnia Last Admin: 03/22/24 21:33 Dose: 6 mg Documented By: BEATRIS Methadone HCl (Methadone Hcl 20 Mg/2 Ml Oral.Conc) 90 mg PO DAILY@0800 [facility] Last Admin: 03/22/24 07:23 Dose: 90 mg Documented By: AMY Co-signed By: KAR Methadone HCl (Methadone Hcl 20 Mg/2 Ml Oral.Conc) 30 mg PO DAILY@1400 [facility] Last Admin: 03/22/24 14:37 Dose: 30 mg Documented By: AMY Co-signed By: RIGOBERTO Mirtazapine (Mirtazapine 15 Mg Tablet) 15 mg PO BEDTIME [facility] Last Admin: 03/22/24 21:34 Dose: 15 mg Documented By: BEATRIS Morphine Sulfate (Morphine Sulfate 4 Mg/Ml Cartridge) 4 mg IVPUSH Q4H PRN; Protocol PRN Reason: Pain, Severe (Pain Scale 7-10) Last Admin: 03/22/24 21:33 Dose: 4 mg Documented By: BEATRIS Nicotine (Nicotine 21 Mg Patch.Td24) 21 mg TRANSDERMA DAILY [facility] Last Admin: 03/23/24 08:48 Dose: 21 mg Documented By: STEPHY Ondansetron HCl (Ondansetron Hcl 4 Mg/2 Ml Vial) 4 mg IVPUSH Q8H PRN PRN Reason: Nausea and Vomiting Last Admin: 03/22/24 22:15 Dose: 4 mg Documented By: BEATRIS Pharmacy Consult (Consult Rx Vancomycin Dosing) 1 each MISCELLANE DAILY PRN PRN Reason: Consult order Prazosin HCl (Prazosin Hcl 1 Mg Capsule) 1 mg PO BEDTIME [facility]; Protocol Last Admin: 03/22/24 21:34 Dose: 1 mg Documented By: ADELAIDAZ Sodium Chloride (0.9 % Sodium Chloride Flush 3 Ml Syringe) 3 ml IVFLUSH QSHIFT [facility] Last Admin: 03/23/24 08:50 Dose: 3 ml Documented By: GRAZIC Labs 03/20/24 13:16 03/23/24 06:07 Labs: Laboratory Results - last 24 hr 03/21/24 03/22/24 03/23/24 10:38 17:57 06:07 Estim Creat Clear Calc 122.6 Estimated GFR > 60 Random Vancomycin 14.5 L Hepatitis C Ab (EIA) Reactive H HIV 1&2 Ab/P24 Ag 4thGn Nonreactive Microbiology Microbiology Results: Microbiology 03/21/24 10:55 Gram Stain - Final Leg Left Routine Culture - Preliminary Culture in progress. Procedures Date of Service Date of Service: 03/23/24 Progress Note: A&P Assessment and plan (1) Bilateral cellulitis of lower leg: Status: Acute Plan Encouraged patient to shower to cleanse the wounds. Will return for dressing change following. Time Spent With Patient Time: Total time managing care of this patient today ____ minutes. Quality Stroke Does the patient have a stroke diagnosis?: No VTE Prior VTE?: No VTE Risk Level:: Medical - moderate - high VTE Device Contraindication: N/A - Device Ordered VTE Drug Contraindication: Treatment Not Indicated
[2024-03-23] MEDS: methADONE HCl 20 MG/2 ML ORAL.CONC 90 MG PO (10:13)
--- NOTE | 2024-03-23 10:55 | P.PNADD_ITS ---
Subjective Subjective Date of Service: 03/23/24 Reason For Visit: infected wounds, acute anemia Interim History: Patient seen in follow up Awake, alert, laying in bed, engaged in interview. Reporting that he feels so much better, I was afraid I was never going to feel better again . He states that pain is much improved, and found split dose of methadone helpful with that Anxiety improved as well Reviewed that methadone would be combined at discharge, patient agreeable Review of Systems Constitutional: Reports as per HPI Mental Status Exam Mental Status Exam Patient Appearance: Appropriate Level of Consciousness: Awake, Appropriate and Alert Patient Behavior: Talkative Mood Description: Calm Diagnostics Vital Signs (24Hr): Vital Signs - 24 hr 03/22/24 11:27 03/22/24 11:41 03/22/24 15:20 Temperature 98.2 F 98.1 F 97.8 F Pulse Rate 115 H 115 H 81 Respiratory Rate 16 16 18 Blood Pressure 110/74 110/57 L 136/76 Pulse Oximetry 92 92 93 Oxygen Delivery Method Room Air Room Air Room Air 03/22/24 19:19 03/22/24 23:16 03/23/24 03:18 Temperature 98 F 98.8 F 98.8 F Pulse Rate 89 100 111 H Respiratory Rate 18 16 16 Blood Pressure 119/61 125/62 150/58 H Pulse Oximetry 93 92 92 Oxygen Delivery Method Room Air Room Air Room Air 03/23/24 07:24 Temperature 97.8 F Pulse Rate 95 Respiratory Rate 16 Blood Pressure 119/69 Pulse Oximetry 91 L Oxygen Delivery Method BMI result Body Mass Index 32.5 Labs 03/20/24 13:16 03/23/24 06:07 Labs: Laboratory Results - last 48 hr 03/21/24 03/21/24 03/22/24 10:38 18:05 06:17 Creatinine 0.65 1.15 Estim Creat Clear Calc 156.5 88.5 Estimated GFR > 60 > 60 Random Vancomycin 13.7 L Hepatitis C Ab (EIA) Reactive H HIV 1&2 Ab/P24 Ag 4thGn Nonreactive 03/22/24 03/23/24 17:57 06:07 Creatinine 0.83 Estim Creat Clear Calc 122.6 Estimated GFR > 60 Random Vancomycin 14.5 L Hepatitis C Ab (EIA) HIV 1&2 Ab/P24 Ag 4thGn Imaging Radiology Impressions: ITS Impressions Tibia/Fibula X-Ray 03/19/24 19:06 IMPRESSION: Normal left tibia and fibula, without osteomyelitis noted. There are soft tissue wounds. Overlapping dressing material limits evaluation of the lower aspect of the lower leg. Electronically signed by: Wicho Walton MD 03/19/2024 09:06 PM MAURO Medications Medications Current Medications Acetaminophen (Acetaminophen 325 Mg Tablet) 650 mg PO Q6H PRN PRN Reason: Pain, Mild 1-3,fever,headache Last Admin: 03/22/24 12:17 Dose: 650 mg Calcium Carbonate (Calcium Carbonate 750 Mg Tab.Chew) 750 mg PO Q4H PRN PRN Reason: Heartburn Clonazepam (Clonazepam 1 Mg Tablet) 1 mg PO Q6H PRN PRN Reason: anxiety/restlessness Last Admin: 03/23/24 08:41 Dose: 1 mg Collagenase (Collagenase Clostridium Hist. 30 Gm Tube) 1 appl TOPICAL DAILY TANISHA; Protocol Last Admin: 03/22/24 07:22 Dose: 1 appl Ferrous Sulfate (Ferrous Sulfate 324 Mg Tablet.Dr) 324 mg PO DAILY TANISHA Last Admin: 03/23/24 08:41 Dose: 324 mg Furosemide (Furosemide 40 Mg Tablet) 40 mg PO DAILY TANISHA; Protocol Last Admin: 03/23/24 08:41 Dose: 40 mg Gabapentin (Gabapentin 300 Mg Capsule) 300 mg PO BID TANISHA Last Admin: 03/23/24 08:41 Dose: 300 mg Vancomycin HCl 1,250 mg/ (Sodium Chloride) 250 mls @ 166.667 mls/hr IV Q12H TANISHA Last Infusion: 03/23/24 10:36 Dose: Infused Piperacillin Sod/Tazobactam (Sod 3.375 gm/ Sodium Chloride) 50 mls @ 100 mls/hr IV Q6H TANISHA Last Admin: 03/23/24 10:34 Dose: 100 mls/hr Levetiracetam (Levetiracetam 250 Mg Tablet) 750 mg PO BID TANISHA Last Admin: 03/23/24 08:41 Dose: 750 mg Magnesium Hydroxide (Milk Of Magnesia 30 Ml Oral.Susp) 30 ml PO DAILY PRN PRN Reason: Constipation Melatonin (Melatonin 3 Mg Tablet) 6 mg PO BEDTIME PRN PRN Reason: Insomnia Last Admin: 03/22/24 21:33 Dose: 6 mg Methadone HCl (Methadone Hcl 20 Mg/2 Ml Oral.Conc) 90 mg PO DAILY@0800 [facility] Last Admin: 03/23/24 10:13 Dose: 90 mg Methadone HCl (Methadone Hcl 20 Mg/2 Ml Oral.Conc) 30 mg PO DAILY@1400 [facility] Last Admin: 03/22/24 14:37 Dose: 30 mg Mirtazapine (Mirtazapine 15 Mg Tablet) 15 mg PO BEDTIME [facility] Last Admin: 03/22/24 21:34 Dose: 15 mg Morphine Sulfate (Morphine Sulfate 4 Mg/Ml Cartridge) 4 mg IVPUSH Q4H PRN; Protocol PRN Reason: Pain, Severe (Pain Scale 7-10) Last Admin: 03/22/24 21:33 Dose: 4 mg Nicotine (Nicotine 21 Mg Patch.Td24) 21 mg TRANSDERMA DAILY [facility] Last Admin: 03/23/24 08:48 Dose: 21 mg Ondansetron HCl (Ondansetron Hcl 4 Mg/2 Ml Vial) 4 mg IVPUSH Q8H PRN PRN Reason: Nausea and Vomiting Last Admin: 03/22/24 22:15 Dose: 4 mg Pharmacy Consult (Consult Rx Vancomycin Dosing) 1 each MISCELLANE DAILY PRN PRN Reason: Consult order Prazosin HCl (Prazosin Hcl 1 Mg Capsule) 1 mg PO BEDTIME [facility]; Protocol Last Admin: 03/22/24 21:34 Dose: 1 mg Sodium Chloride (0.9 % Sodium Chloride Flush 3 Ml Syringe) 3 ml IVFLUSH QSHIFT [facility] Last Admin: 03/23/24 08:50 Dose: 3 ml Allergies Allergies Allergy/AdvReac Type Severity Reaction Status Date / Time banana [BANANA] Allergy Unknown VOMITING/HI Verified 03/19/24 18:59 VES tomato [TOMATO] Allergy Unknown HIVES, Verified 03/19/24 18:59 SWOLLEN THROAT Assessment & Plan Assessment & Plan (1) Opioid use disorder: Status: Acute Code(s): F11.90 - Opioid use, unspecified, uncomplicated Assessment and Plan: * methadone 100mg in AM and 30mg in afternoon * already connected to [facility] 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
[2024-03-23] MEDS: Collagenase Clostridium Hist. 30 GM TUBE 1 APPL TOPICAL (11:29)
--- NOTE | 2024-03-23 12:09 | MHC.RECOVRN ---
Addendum entered by Justine Baca 03/23/24 15:22: Received voicemail from Ana informing t/w there are no issues with pts PT-1. Original Note: Met with pt this morning, along with Brandee Villalobos APRN. Pt had expressed difficulty with his PT-1 and transportation to [facility] in [place]. T/w let message with pts clinician, Ana, at [facility] to discuss challenges. Awaiting return call.
[2024-03-23] MEDS: methADONE HCl 20 MG/2 ML ORAL.CONC 30 MG PO (14:04)
--- NOTE | 2024-03-23 14:15 | P.PNIM_ITS ---
Subjective Subjective Date of Service: 03/23/24 Interval History: Seen and evaluated reports anxiety better controlled pain in wounds less than before can not walk and feels unsteady wounds covered and dressed Review of Systems multiple LEs open wounds Anxiety Physical Exam 2 Vital Signs: Vital Signs: Last Vital Signs Temp 97.9 F 03/23/24 11:34 Pulse 101 H 03/23/24 11:34 Resp 16 03/23/24 11:34 BP 125/76 03/23/24 11:34 Pulse Ox 91 L 03/23/24 11:34 O2 Del Method Room Air 03/23/24 03:18 BMI result Body Mass Index 32.5 Const: Other: Constitutional : Awake, interactive, not in distress Neck : Normal inspection, Supple Cardiovascular : RRR, no JVP, no lower extremity edema, pansystolic murmur Respiratory : good bilateral air entry, no crackles, wheezes or rhonchi Gastrointestinal: soft, lax, Normal bowel sounds, Non tender Skin : Warm, Dry, bilateral lower extrmeties multiple wounds with necrotic areas of skin with surrounding erythema, purulent discharge, less warm to touch and tender Neurological : Alert & oriented x3, No focal deficit Objective Data Active Medications Acetaminophen (Acetaminophen 325 Mg Tablet) 650 mg PO Q6H PRN PRN Reason: Pain, Mild 1-3,fever,headache Last Admin: 03/22/24 12:17 Dose: 650 mg Documented By: AMY Calcium Carbonate (Calcium Carbonate 750 Mg Tab.Chew) 750 mg PO Q4H PRN PRN Reason: Heartburn Clonazepam (Clonazepam 1 Mg Tablet) 1 mg PO Q6H PRN PRN Reason: anxiety/restlessness Last Admin: 03/23/24 08:41 Dose: 1 mg Documented By: STEPHY Collagenase (Collagenase Clostridium Hist. 30 Gm Tube) 1 appl TOPICAL DAILY TANISHA; Protocol Last Admin: 03/23/24 11:29 Dose: 1 appl Documented By: STEPHY Ferrous Sulfate (Ferrous Sulfate 324 Mg Tablet.) 324 mg PO DAILY TANISHA Last Admin: 03/23/24 08:41 Dose: 324 mg Documented By: STEPHY Furosemide (Furosemide 40 Mg Tablet) 40 mg PO DAILY TANISHA; Protocol Last Admin: 03/23/24 08:41 Dose: 40 mg Documented By: STEPHY Gabapentin (Gabapentin 300 Mg Capsule) 300 mg PO BID [facility] Last Admin: 03/23/24 08:41 Dose: 300 mg Documented By: STEPHY Vancomycin HCl 1,250 mg/ (Sodium Chloride) 250 mls @ 166.667 mls/hr IV Q12H [facility] Last Infusion: 03/23/24 10:36 Dose: Infused Documented By: STEPHY Piperacillin Sod/Tazobactam (Sod 3.375 gm/ Sodium Chloride) 50 mls @ 100 mls/hr IV Q6H [facility] Last Infusion: 03/23/24 11:24 Dose: Infused Documented By: STEPHY Levetiracetam (Levetiracetam 250 Mg Tablet) 750 mg PO BID [facility] Last Admin: 03/23/24 08:41 Dose: 750 mg Documented By: STEPHY Magnesium Hydroxide (Milk Of Magnesia 30 Ml Oral.Susp) 30 ml PO DAILY PRN PRN Reason: Constipation Melatonin (Melatonin 3 Mg Tablet) 6 mg PO BEDTIME PRN PRN Reason: Insomnia Last Admin: 03/22/24 21:33 Dose: 6 mg Documented By: BEATRIS Methadone HCl (Methadone Hcl 20 Mg/2 Ml Oral.Conc) 90 mg PO DAILY@0800 [facility] Last Admin: 03/23/24 10:13 Dose: 90 mg Documented By: STEPHY Co-signed By: ABHINAV Methadone HCl (Methadone Hcl 20 Mg/2 Ml Oral.Conc) 30 mg PO DAILY@1400 [facility] Last Admin: 03/23/24 14:04 Dose: 30 mg Documented By: STEPHY Co-signed By: ASHLYN Mirtazapine (Mirtazapine 15 Mg Tablet) 15 mg PO BEDTIME [facility] Last Admin: 03/22/24 21:34 Dose: 15 mg Documented By: BEATRIS Morphine Sulfate (Morphine Sulfate 4 Mg/Ml Cartridge) 4 mg IVPUSH Q4H PRN; Protocol PRN Reason: Pain, Severe (Pain Scale 7-10) Last Admin: 03/22/24 21:33 Dose: 4 mg Documented By: BEATRIS Nicotine (Nicotine 21 Mg Patch.Td24) 21 mg TRANSDERMA DAILY [facility] Last Admin: 03/23/24 08:48 Dose: 21 mg Documented By: STEPHY Ondansetron HCl (Ondansetron Hcl 4 Mg/2 Ml Vial) 4 mg IVPUSH Q8H PRN PRN Reason: Nausea and Vomiting Last Admin: 03/22/24 22:15 Dose: 4 mg Documented By: BEATRIS Pharmacy Consult (Consult Rx Vancomycin Dosing) 1 each MISCELLANE DAILY PRN PRN Reason: Consult order Prazosin HCl (Prazosin Hcl 1 Mg Capsule) 1 mg PO BEDTIME TANISHA; Protocol Last Admin: 03/22/24 21:34 Dose: 1 mg Documented By: BEATRIS Sodium Chloride (0.9 % Sodium Chloride Flush 3 Ml Syringe) 3 ml IVFLUSH QSHIFT [facility] Last Admin: 03/23/24 08:50 Dose: 3 ml Documented By: GRAZIC Labs 03/20/24 13:16 03/23/24 06:07 Labs: Laboratory Results - last 24 hr 03/21/24 03/22/24 03/23/24 10:38 17:57 06:07 Estim Creat Clear Calc 122.6 Estimated GFR > 60 Random Vancomycin 14.5 L Hepatitis C Ab (EIA) Reactive H HIV 1&2 Ab/P24 Ag 4thGn Nonreactive Microbiology Microbiology Results: Microbiology 03/21/24 10:55 Gram Stain - Final Leg Left Routine Culture - Preliminary Gram negative renan Staphylococcus aureus Assessment and Plan (1) PTSD (post-traumatic stress disorder): Status: Acute (2) Bilateral cellulitis of lower leg: Status: Acute (3) Opioid use disorder: Status: Acute Plan A 53 years old male with PMH of IVDU, Seizure disorder, chronic wounds in LE presenting to the hospital with worsening lower extremities wounds and generalized weakness. Bilateral lower extremities infected wounds and cellulitis not septic , related to xylazine usage blood Cx negtive and wound cultures growing Staph Continue Vancomycin and Zosyn surgery input appreciated; local dressing and monitoring, hold on I&D for now Lethargy chronic infection murmur pansystolic , check Echo negative cultures PT eval Acute iron def. anemia likely 2/2 GIB occult -ve iron profile low give Iron supplement Transfuse 1 unit of blood follow CBC GI input appreciated, patient refusing EGD Seizure disorder On Keppra Polysubstance use disorder On methadone, addiction team following DVT prophylaxis: SCD given blood loss Full code Admit as inpatient and will require overnight hospital stay for IV antibiotics and surgery team evaluation which is not possible in a lesser acute setting. Quality Stroke Does the patient have a stroke diagnosis?: No VTE Prior VTE?: No VTE Risk Level:: Medical - moderate - high VTE Device Contraindication: N/A - Device Ordered VTE Drug Contraindication: Treatment Not Indicated
--- NOTE | 2024-03-23 16:00 | CA_ITS ---
Transthoracic Echocardiogram Patient (Last, First, Middle): Delmer Bates, Gender: Male Date of : 1970 Age: 53 Procedure Date: 03/23/2024 Procedure Type: Transthoracic Echocardiogram Location: S3E Height: 175.26 cm Weight: 99.79 kg BSA: 2.15 m2 Heart Rate: bpm BP: 125 / 76 mmHg Dispatcher Service Chief: TWAN Referring MD: Max Meng MD Fire Captain Marine: Rm Cifuentes MD Symptoms: Murmur, lethargy, R O Vegetations. Study Quality: Adequate ECG Rhythm: Sinus Conclusions: - 1. No obvious vegetation seen on this study with normal cardiac valvular Dopplers 2. Normal LV ejection fraction of 60-65% Findings Procedure Information Contrast agent, definity, is being given per protocol without apparent complications. Left Ventricle Normal left ventricular size, thickness, and systolic function. The visually estimated ejection fraction is between 60-65%. Spectral Doppler is indicative of an impaired relaxation filling pattern. Right Ventricle The right ventricle was not well visualized. Atria The left atrium was not well visualized. Interatrial shunt cannot be excluded. The right atrium was not well visualized. Aortic Valve The aortic valve structure and function is likely normal. There is no aortic valve stenosis. There is no aortic valve regurgitation. Mitral Valve Normal mitral valve structure and function. There is no mitral valve regurgitation. There is no mitral valve stenosis. Pulmonic Valve The pulmonic valve was not well visualized. Tricuspid Valve Likely normal tricuspid valve structure and function. Tricuspid regurgitation envelope is inadequate for calculation of right ventricular systolic pressure. Normal right atrial pressure. Great Vessels The aorta was not well visualized. The pulmonary artery was not well visualized. Venous The inferior vena cava is normal in size. Pericardium/Pleural The pericardium was not well visualized. Recommendations, Care & Conclusions Consider a TYLER if clinically appropriate. Measurements 2D Linear Measurements IVSd: 0.78 0.6-0.9/0.6-1.0 cm LVIDd: 5.00 3.9-5.3/4.2-5.9 cm LVIDd Index: 2.33 2.4-3.2/2.2-3.1 cm/m2 LVIDs: 3.42 2.0-3.6 cm LVPWd: 0.84 0.7-1.1 cm LA Diam: 3.40 2.7-3.8/3.0-4.0 cm LAIDs Index: 1.58 1.5-2.3 cm/m2 LV Mass: 171.04 67-162/88-224 g LV Mass Index: 79.55 43-95/49-115 g/m2 LVOT Diam: 2.30 3.0+(-)1.3 cm 2D Systolic Function EF 4C: 74.50 >55% EF 2C: 48.00 >55% EF BiP: 65.30 >55% Mitral Valve MV Pk E: 0.57 MV PK A: 0.84 MV Decel Time: 201.00 E/A: 0.70 E'Lateral: 8.05 E'Medial: 5.00 E/E' Med: 11.30 E/E' Lat: 7.00 PHT: 59.00 MVA PHT: 3.73 Decel Dolores: 2.82 Aortic Valve AoV Pk Cy: 1.49 AoV Pk Grad: 9.00 SIRISHA: 2.84 LVOT LVOT Pk Cy: 1.06 LVOT Mn Cy: 0.68 LVOT VTI: 0.18 LVOT Pk Grad: 4.00 LVOT Mn Grad: 2.00 LVOT Diam: 2.30 LVOT Area: 4.15 Diastolic Function MV Pk E: 0.57 MV Pk A: 0.84 E/A: 0.70 E'Medial: 5.00 E/E' Med: 11.30 E' Laterial: 8.05 E/E' Lat: 7.00 Right Ventricle TAPSE (mm): 18.30 TVS' Cy: 17.70 Tricuspid Valve RA Press: 3.00 Great Vessels Aorta Sinus of Valsalva: 3.00 2.0-3.5 cm Ao Asc: 3.10 2.1-3.4 cm Pulmonary Valve PV Pk Cy: 1.10 Peak PV Grad: 5.00 Updated in Other Vendor System with Status of Final Rm Cifuentes MD electronically signed on 03/23/2024 4:52:18 PM with status of Final
[2024-03-23 18:36] LABS: Vancomycin Random 14.4 mcg/mL (15-20)
--- NOTE | 2024-03-23 18:54 | HE.PHANOTE ---
RE: VANCO DOSING Trough came back as 14.4 mg/L. Continue with dose 1250 mg q12h, next trough is due @1800 03/24/24.
[2024-03-23] MEDS: Mirtazapine 15 MG TABLET PO (19:58)
[2024-03-23] MEDS: Prazosin HCL 1 MG CAPSULE PO (19:59)
[2024-03-23] MEDS: Morphine Sulfate 4 MG/ML CARTRIDGE IVPUSH (21:22)
[2024-03-24] VITALS: BP 119/72; PULSE 86; RESP 18; TEMP 36.5; O2SAT 91
[2024-03-24] MEDS: clonazePAM 1 MG TABLET PO (03:03)
[2024-03-24 03:20] VITALS: BP 114/65; PULSE 85; RESP 18; TEMP 37.4; O2SAT 91
[2024-03-24] MEDS: Calcium Carbonate 750 MG TAB.CHEW PO (03:24)
[2024-03-24] MEDS: Piperacillin Sodium/Tazobactam 3.375 GM in 0.9 % Sodium Chloride 50 ML IV ×2 (03:25→10:31)
[2024-03-24 06:40] LABS: Basophils Percent Auto 0.5 % (0-2); Eosinophils Absolute Auto 0.2 X10*3/uL (0.0-0.4); Eosinophils Percent Auto 3.8 % (0-4); Hematocrit 27.4 % (42.0-52.0); Hemoglobin 8.2 g/dl (14.0-18.0); Imm Gran Abs Auto 0.03 X10*3/uL (0.00-0.03); Imm Gran Pct Auto 0.5 % (0.0-0.4); Lymphocytes Percent Auto 31.6 % (20-40); Mean Corpuscular HGB Conc 29.9 g/dl (31.0-36.0); Mean Corpuscular Volume 76.8 fL (80.0-98.0); Mean Platelet Volume 10.1 fL (9.4-12.4); Monocytes Absolute Auto 0.6 X10*3/uL (0.1-1.2); Neutrophils Absolute Auto 3.4 x10*3/uL (2.0-8.3); Neutrophils Percent Auto 53.6 % (45-73); Platelet Count 296 X10*3/uL (160-400); Red Blood Count 3.57 X10*6/uL (4.60-5.80); Red Cell Distribution Width 18.1 % (11.0-16.0); White Blood Count 6.3 X10*3/uL (4.8-10.8)
[2024-03-24 06:46] LABS: Anion Gap 13 (12-20); Blood Urea Nitrogen 11 mg/dL (9-16); Calcium 8.8 mg/dL (8.4-10.2); Carbon Dioxide 30 mmol/L (22-29); Chloride 101 mmol/L (96-108); Creatinine Clr Calc Pharmacy 130.4; Estimated Glomerular Filt Rate > 60; Glucose Random 112 mg/dL (60-115); Potassium 3.8 mmol/L (3.3-5.1); Sodium 140 mmol/L (135-145)
[2024-03-24 07:40] VITALS: BP 116/76; PULSE 92; RESP 16; TEMP 37.1; O2SAT 92
[2024-03-24 08:00] VITALS: PULSE 92
[2024-03-24] MEDS: vancomycin HCL 1,250 MG in 0.9 % Sodium Chloride 250 ML 166.67 MG IV (08:13)
[2024-03-24] MEDS: Nicotine 21 MG PATCH.TD24 TRANSDERMA (08:14)
[2024-03-24] MEDS: Furosemide 40 MG TABLET PO ×2 (08:15→12:14)
[2024-03-24] MEDS: methADONE HCl 20 MG/2 ML ORAL.CONC 100 MG PO (08:15)
[2024-03-24] MEDS: Morphine Sulfate 4 MG/ML CARTRIDGE IVPUSH (08:15)
[2024-03-24] MEDS: levETIRAcetam 250 MG TABLET 750 MG PO (08:15)
[2024-03-24] MEDS: Ferrous Sulfate 324 MG TABLET.DR PO (08:15)
[2024-03-24] MEDS: Gabapentin 300 MG CAPSULE PO (08:15)
[2024-03-24] MEDS: 0.9 % Sodium Chloride Flush 3 ML SYRINGE IVFLUSH (08:16)
[2024-03-24 09:36] VITALS: O2SAT 90
--- NOTE | 2024-03-24 11:58 | PC.NURSE ---
1130- Patient refused attempted dressing changes. Requested this RN come back later .
[2024-03-24 12:00] VITALS: BP 109/67; PULSE 93; RESP 16; TEMP 36.5; O2SAT 93
--- NOTE | 2024-03-24 12:01 | P.F2F_ITS ---
Service Date Service Date: 03/24/24 Encounter Date of encounter: 03/24/24 Reasons for Services Signs and symptoms assessed: Multiple wounds for wound care physical deconditioning Reason for long term: wound care (Wound care: wounds of right le) right lateral and 2) medial thigh, 3) right lateral/posterior knee, 4) right lower leg medial/posterior aspect ; wounds of left le) left lower leg lateral aspect, proximal 2) left lower leg more distally medial/anterior aspect Curad oil immersion dressing to ) and teach disease management Reason for physical therapy: home safety and mobility and therapeutic exercises Homebound: Leaving the home is medically contraindicated at this time without the asist of a device and/or another person due th the listed conditions above and below. Reason homebound: unsteady gait / fall risk Certification: Based on the above findings, I certify that this patient is confined to the home and needs intermittent long term care, physical therapy and/or speech therapy, or continues to need occupational therapy. The patient is under my care, and I have initiated the establishment of the plan of care. The patient will be followed by a physician who will periodically review the plan of care. Time Spent With Patient Time: Total time managing care of this patient today ____ minutes.
--- NOTE | 2024-03-24 12:02 | P.DS_ITS ---
DS: Providers Provider Date of Service: 03/24/24 Date of admission: 03/20/24 01:12 Date of discharge: 03/24/24 Primary care physician: Maria Isabel Marquez MD Consults: 03/20/24 01:12 Consult to General Surgery Routine Consulting Provider: [facility] [place] [facility] Surgeons Reason for consultation: multiple infected wounds 03/20/24 01:50 Consult to Gastroenterology Routine Consulting Provider: Preeti Worley Reason for consultation: Anemia. VASHTI 03/20/24 03:54 Consult to Wound Care Routine Reason for consultation: large infected wounds to bilateral extremities 03/20/24 06:51 Addiction Medicine Routine Consulting Provider: Addiction Covering Reason for consultation: drug abuse 03/20/24 09:33 Consult to Psychiatry Routine Consulting Provider: [facility] [place] Psych Covering Reason for consultation: pt with severe anxiety, need assistance in med mgmt 03/22/24 11:50 Consult to Wound Care Routine Reason for consultation: Lower extremity wounds; IVDA history Has provider been notified: No DS: Diagnosis Discharge Diagnosis (1) Opioid use disorder: Status: Acute (2) PTSD (post-traumatic stress disorder): Status: Acute (3) MDD (major depressive disorder), recurrent episode: Status: Acute (4) Anemia: Status: Acute (5) Bilateral cellulitis of lower leg: Status: Acute (6) Cellulitis of right thigh: Status: Acute (7) Physical deconditioning: Status: Acute DS: Summary Hospital Course Hospital Course: Admission note HPI A 53 years old male with PMH of IVDU, Seizure disorder, chronic wounds in LE presenting to the hospital with worsening lower extremities wounds and generalized weakness. The patient reports feeling sick for months being tired and having no energy with worsening open wounds in his lower extremities that are draining , painful and itchy with foul smell and purulent discharge. The wounds are chronic and reported in previous hospital admissions. he left [facility] more than once and live in a half-way or the streets. No fever, chills, chest pain, palpitations, SOB, nausea, vomiting, diarrhea or urinary symptoms. In ED he was noticed to have new Anemia. he denies any melena but reports occasional bloody stool last 2 weeks and bleeding from the wounds sometimes. occult stool negative. Hb dropped from >11 to 6.8. to be transfused 1 unit of blood and admitted for further work up and treatment. Hospital course # Bilateral lower extremities infected wounds and cellulitis with no sepsis on admission , related to drug injections and likely xylazine usage. blood Cultures remained negtive and wound cultures growing Staph and pseudomonas. Covered with IV Vancomycin and Zosyn with good response as he was evaluated by surgery team who recommended local dressing and monitoring with no need for I&D this time. To be discharged on Doxycycline and Levofloxacin for 10 more days based on sensitivity. # Lethargy on presentation likely from chronic infection with concern over murmur pansystolic , Echo was done with no evidence of vegetations. negative cultures. PT evaluated the patient and recommended home PT. # Acute iron def. anemia likely 2/2 chronic GIB or chronic infection. occult stool was negative but had iron profile low. started Iron supplement and Transfused 1 unit of blood with fair response. GI evaluated the patient but he was refusing EGD or any procedure. to follow as outpatient. Start Omeprazole. # Seizure disorder, On Keppra # Polysubstance use disorder, On methadone, addiction team followed that patient and restarted his Methadone dosage of 130 mcg daily. # Anxiety, PTSD, seen by psychiatry who recommended starting Prazosin. patient doing better overall. plan to follow as outpatient. Discharge plan Continue antibiotics for 10 more days To do wound care at home and follow with wound care clinic Total abstinence from drugs in order to recover and improved Ativan and Prazosin for anxiety Oxycodone as needed for pain Mirtazapine for sleeping and anxiety To do physical therapy at home Time Attestation Discharge Coordination Time (in mins): 48 Quality: Safe Use of Opioids Does Pt have an Active Cancer Diagnosis on the Problem List?: No Quality: Stroke Does the patient have a stroke diagnosis?: No Physical Exam Vital Signs: Vital Signs: Last Vital Signs Temp 98.7 F 03/24/24 07:40 Pulse 92 03/24/24 07:40 Resp 16 03/24/24 07:40 BP 116/76 03/24/24 07:40 Pulse Ox 90 L 03/24/24 09:36 O2 Del Method Nasal Cannula 03/24/24 07:40 O2 Flow Rate 2 03/24/24 07:40 BMI result Body Mass Index 32.5 Const: Other: Constitutional : Awake, interactive, not in distress Neck : Normal inspection, Supple Cardiovascular : RRR, no JVP, no lower extremity edema, pansystolic murmur Respiratory : good bilateral air entry, no crackles, wheezes or rhonchi Gastrointestinal: soft, lax, Normal bowel sounds, Non tender Skin : Warm, Dry, bilateral lower extrmeties multiple wounds with no significant erythema or purulent discharge, no significant tenderness Neurological : Alert & oriented x3, No focal deficit DS: Data Data Completed and Pending Completed studies during hospitalization [Text1]: Procedures Insertion of Infusion Device into Left Brachial Vein, Percutaneous Approach (05/05/23) Labs on day of discharge: Laboratory Results - last 24 hr 03/23/24 03/24/24 17:57 06:02 WBC 6.3 RBC 3.57 L Hgb 8.2 L Hct 27.4 L MCV 76.8 L MCH 23.0 L MCHC 29.9 L RDW 18.1 H Plt Count 296 MPV 10.1 Immature Gran % (Auto) 0.5 H Neut % (Auto) 53.6 Lymph % (Auto) 31.6 [place] % (Auto) 10.0 Eos % (Auto) 3.8 Baso % (Auto) 0.5 Lymph # (Auto) 2.0 [place] # (Auto) 0.6 Eos # (Auto) 0.2 Baso # (Auto) 0.0 Abs Immat Gran (auto) 0.03 Absolute Neuts (auto) 3.4 Absolute Nucleated RBC 0.000 Nucleated RBC % (auto) 0.0 Sodium 140 Potassium 3.8 Chloride 101 Carbon Dioxide 30 H Anion Gap 13 BUN 11 Creatinine 0.78 Estim Creat Clear Calc 130.4 Estimated GFR > 60 Random Glucose 112 Calcium 8.8 Random Vancomycin 14.4 L Preliminary micro results at discharge 03/20/24 00:49 Blood Culture - Preliminary Blood - Venous No growth after 48 hours. 03/19/24 21:38 Blood Culture - Preliminary Blood - Venous No growth after 48 hours. Imaging Chest x-ray: Radiologist's impression: ITS Impressions Tibia/Fibula X-Ray 03/19/24 19:06 IMPRESSION: Normal left tibia and fibula, without osteomyelitis noted. There are soft tissue wounds. Overlapping dressing material limits evaluation of the lower aspect of the lower leg. Electronically signed by: Wicho Walton MD 03/19/2024 09:06 PM [facility] [place] Discharge Plan Discharge Anticipated Discharge Date/Time: 03/24/24 11:48 Patient Disposition: Home Health Service Discharge Diagnosis: Cellulitis lower extremities open wounds Anxiety Referrals: [facility] [place] Wound Care Management [Provider Group] - 1 Week Maria Isabel Marquez MD [Primary Care Provider] - 1 Week Discharge Medications: New prazosin 1 mg Capsule 1 mg PO BEDTIME Qty: 90 0RF Protocol: Hold for SBP< HOLD for SBP < : 90 clonazepam 1 mg Tablet 0.5 mg PO Q6H PRN (Reason: Anxiety/Restlessness) Qty: 30 0RF nicotine 21 mg/24 hr Patch 24 Hour 21 mg transdermal DAILY Qty: 90 0RF mirtazapine 15 mg Tablet 15 mg PO BEDTIME Qty: 90 0RF Santyl 250 unit/gram Ointment 1 appl topical DAILY 30 Days Qty: 30 0RF Protocol: Apply to: Apply to: lower extremity wounds ferrous sulfate 324 mg (65 mg iron) Tablet,Delayed Release (Dr/Ec) 324 mg PO DAILY Qty: 90 0RF oxycodone 5 mg capsule 5 mg PO Q8H PRN (Reason: pain (scale score 7-10)) Qty: 30 0RF Rx Instructions: Partial Fill upon patient request. doxycycline monohydrate 100 mg capsule 100 mg PO BID Qty: 20 0RF levofloxacin 750 mg tablet 750 mg PO DAILY 10 Days Qty: 10 0RF omeprazole 20 mg capsule,delayed release(DR/EC) 20 mg PO DAILY Qty: 90 0RF Continued methadone [Methadose] 10 mg/mL Concentrate 130 mg PO DAILY furosemide 80 mg tablet 80 mg PO DAILY levetiracetam 500 mg tablet 750 mg PO BID 90 Days Qty: 270 0RF gabapentin 300 mg capsule 300 mg PO BID Discharge Orders: Discharge Order (Routine); Ordered 03/24/24 Ordered By: Max Meng Diet: Advance to usual diet Activity on Discharge: As tolerated Stand Alone Forms: Patient Portal Discharge page Print Language: Tamazight Activity Restrictions/Additional Instructions: Wound care: wounds of right le) right lateral and 2) medial thigh, 3) right lateral/posterior knee, 4) right lower leg medial/posterior aspect ; wounds of left le) left lower leg lateral aspect, proximal 2) left lower leg more distally medial/anterior aspect Curad oil immersion dressing to all open areas followed by silver alginate, dry fluffs, abd dressing and kerlix wrap. Can change curad/silver alginate every other day and exterior fluffs, kerlix wrap every other day (sooner if needed, wounds are very weepy). Care Plan Goals: Continue antibiotics for 10 more days To do wound care at home and follow with wound care clinic Total abstinence from drugs in order to recover and improved Ativan for anxiety Oxycodone as needed for pain Mirtazapine for sleeping and anxiety To do physical therapy at home Health Concerns: Multiple wounds, skin infection Anxiety, drug abuse Plan of Treatment: Antibiotics Wound care Methadone and anxiety medications Assessment: as above
--- NOTE | 2024-03-24 12:34 | MHC.CM.PN ---
DP: PT HAS BEEN MEDICALLY CLEARED FOR DC HOME WITH NEW [facility] FOR WOUND CARE AND PHYSICAL THERAPY. PT IS AGREEABLE TO SERVICES. BLS TRANSPORT BOOKED FOR 2 PM [facility]IA [facility]. RN AWARE. [facility] AWARE OF TODAY'S DC.
--- NOTE | 2024-03-24 12:56 | PC.NURSE ---
Patient provided supplies for dressing changes and wound care at home. Verbalizes understanding and ability to change dressing independently when needed. Current dressings remain clean, dry, and intact.
--- NOTE | 2024-03-24 13:04 | P.CDIM_ITS ---
PROVIDER RESPONSE TEXT: To clarify, the appropriate diagnosis supported by the clinical indicators: Iron deficiency anemia due to chronic blood loss QUERY TEXT: PHYSICIAN'S DOCUMENTATION REQUEST Date of Query: 03/23/2024 11:59 AM EST Patient Name: Delmer Bates Admit Date: 03/20/2024 Dear Max Meng MD, A review of the medical record indicates additional documentation may be needed. Please review below and update the documentation accordingly. Clinical Indicators: Progress note 03/22 - Acute iron deficiency anemia likely 2/2 GIB. occult - ve Iron profile low, given iron supplement. Transfuse 1 unit of blood Follow CBC H & H - 6.8/22.2 Patient refusing EGD. Based on the above, could you clarify which of the following is the most likely type of anemia you ar e evaluating, treating, and/or monitoring? Iron deficiency anemia due to acute on chronic blood loss possible, probable, suspected Iron deficiency anemia due to chronic blood loss Other (explain) Clinically unable to determine (explain) Thank you, Jordyn Tirado, CCS, CDIS Use of terms such as suspected, likely, concern for, or probable (associated with a specific diagnosi s that is being evaluated, monitored, or treated as if it exists) are acceptable and can be coded in the inpatient se tting, when documented at the time of discharge. Please use your independent medical judgment in providing your response. THIS QUERY IS PART OF THE PERMANENT MEDICAL RECORD
[2024-03-24] MEDS: methADONE HCl 20 MG/2 ML ORAL.CONC 30 MG PO (13:58)
[2024-03-26 13:13] LABS: HCV Log PCR <1.18 NOT DETECTED Log IU/mL (NOT DETECTED); HepC Viral Load <15 NOT DETECTED IU/mL (NOT DETECTED)
== END 2024-03-24 14:15 | disposition home health service (06) | DRG 383 ==
LOC: HO.ED 23:35 → HO.EDOVER 03-20 01:30 → HO.S3 03-20 01:50
PROVIDERS: Family Medicine; Internal Medicine; Nurse Practitioner Psychiatric/Mental Health; Physician Assistant; Admitting Provider Student in an Organized Health Care Education/Training Program; Emergency Provider Emergency Medicine; PCP Family Medicine; Visit Provider Student in an Organized Health Care Education/Training Program
DX: L03.116 Cellulitis of left lower limb (principal); L97.119 Non-pressure chronic ulcer of right thigh with unspecified severity; D62 Acute posthemorrhagic anemia; L97.829 Non-pressure chronic ulcer of other part of left lower leg with unspecified severity; L97.819 Non-pressure chronic ulcer of other part of right lower leg with unspecified severity; F11.20 Opioid dependence, uncomplicated; F19.10 Other psychoactive substance abuse, uncomplicated; B96.5 Pseudomonas (aeruginosa) (mallei) (pseudomallei) as the cause of diseases classified elsewhere; F43.10 Post-traumatic stress disorder, unspecified; B95.62 Methicillin resistant Staphylococcus aureus infection as the cause of diseases classified elsewhere; F33.9 Major depressive disorder, recurrent, unspecified; G40.909 Epilepsy, unspecified, not intractable, without status epilepticus; Z20.822 Contact with and (suspected) exposure to COVID-19; L03.115 Cellulitis of right lower limb; Z79.899 Other long term (current) drug therapy
CPT/HCPCS: 0241U; 36415; 73590; 80048; 80053; 80202; 80307; 81001; 82272; 82565; 82728; 83540; 83605; 83690; 85014; 85018; 85025; 85610; 85652; 86140; 86803; 86850; 86900; 86901; 86920; 87040; 87070; 87077; 87186; 87205; 87389; 87522; 93306; 97162; 99285; J1171; J1885; J2060; J2270; J2405; J2543; J2765; J3370; J3371; P9016; Q9957

== ENCOUNTER 2024-03-20 01:12 | Outpatient (BNV) | payer MEDICAID, SELFPAY | END 2024-03-23 16:00 | PROVIDERS: Admitting Provider Student in an Organized Health Care Education/Training Program; Emergency Provider Emergency Medicine; PCP Family Medicine; Visit Provider Internal Medicine Cardiovascular Disease | DX: R01.1 Cardiac murmur, unspecified (principal); R93.1 Abnormal findings on diagnostic imaging of heart and coronary circulation | CPT/HCPCS: 93306 ==

== ENCOUNTER → 2024-03-20 01:12 | Outpatient (BNV) | payer MEDICAID, SELFPAY | PROVIDERS: Admitting Provider Student in an Organized Health Care Education/Training Program; Emergency Provider Emergency Medicine; PCP Family Medicine; Visit Provider Student in an Organized Health Care Education/Training Program | DX: L03.116 Cellulitis of left lower limb (principal); L03.115 Cellulitis of right lower limb; F11.90 Opioid use, unspecified, uncomplicated | CPT/HCPCS: 99222; 99232; 99499 ==

== ENCOUNTER → 2024-03-20 01:12 | Outpatient (BNV) | payer MEDICAID, SELFPAY | PROVIDERS: Admitting Provider Student in an Organized Health Care Education/Training Program; Emergency Provider Emergency Medicine; PCP Family Medicine; Visit Provider Nurse Practitioner Psychiatric/Mental Health | DX: F11.90 Opioid use, unspecified, uncomplicated (principal) | CPT/HCPCS: 99222; 99232 ==

== ENCOUNTER → 2024-03-20 01:12 | Outpatient (BNV) | payer MEDICAID, SELFPAY | PROVIDERS: Admitting Provider Student in an Organized Health Care Education/Training Program; Emergency Provider Emergency Medicine; PCP Family Medicine; Visit Provider Internal Medicine | DX: D64.9 Anemia, unspecified (principal) | CPT/HCPCS: 99223; 99232 ==

== ENCOUNTER → 2024-03-20 01:12 | Outpatient (BNV) | payer OTHER, SELFPAY | PROVIDERS: Admitting Provider Student in an Organized Health Care Education/Training Program; Emergency Provider Emergency Medicine; PCP Family Medicine; Visit Provider Registered Nurse | DX: F33.2 Major depressive disorder, recurrent severe without psychotic features (principal); F43.11 Post-traumatic stress disorder, acute; F11.90 Opioid use, unspecified, uncomplicated | CPT/HCPCS: 99232 ==

== ENCOUNTER → 2024-03-20 01:12 | Outpatient (BNV) | payer MEDICAID, SELFPAY | PROVIDERS: Admitting Provider Student in an Organized Health Care Education/Training Program; Emergency Provider Emergency Medicine; PCP Family Medicine; Visit Provider Physician Assistant Surgical | DX: L03.116 Cellulitis of left lower limb (principal); L03.115 Cellulitis of right lower limb | CPT/HCPCS: 99222; 99232 ==